=== PATIENT | male | born 1950 | race Caucasian/White ===

== ENCOUNTER 2021-11-27 13:04 | Inpatient (IN) ==
[2021-11-27 14:31] LABS: Basophils # (auto) 0.04 K/uL (0-0.2); Basophils % (auto) 0.4 %; Eosinophils # (auto) 0.28 K/uL (0-0.5); Eosinophils % (auto) 2.9 %; Hematocrit (blood only) 42.6 % (42-52); Hemoglobin 14.5 g/dL (14.0-18.0); Immature Granulocytes # (auto) 0.02 K/uL (0.00-0.02); Immature Granulocytes % (auto) 0.2 %; Lymphocytes # (auto) 1.94 K/uL (1.2-3.4); Lymphocytes % (auto) 19.8 %; Mean Corpuscular Hemoglobin 28.2 pg (25-34); Mean Corpuscular Volume 82.7 fL (80-100); Monocytes # (auto) 0.45 K/uL (0.11-0.59); Monocytes % (auto) 4.6 %; Neutrophils # (auto) 7.07 K/uL (1.4-6.5); Neutrophils % (auto) 72.1 %; Platelet Count 215 K/uL (130-400); RDW Coefficient of Variation 12.8 % (11.5-14.5); RDW Standard Deviation 38.8 fL (36.4-46.3); Red Blood Count 5.15 M/uL (4.7-6.1)
[2021-11-27 14:56] LABS: Alanine Aminotransferase 10 U/L (7-52); Albumin Globulin Ratio 1.2 (0.9-2); Albumin Level 4.3 gm/dl (3.4-5.0); Alkaline Phosphatase 70 U/L (34-104); Anion Gap 8 (3-11); Aspartate Aminotransferase 14 U/L (13-39); BUN Creatinine Ratio 26.9 (10-20); Bilirubin,Total 0.7 mg/dl (0.2-1.0); Blood Urea Nitrogen 36 mg/dl (6-23); Calcium 9.2 mg/dl (8.5-10.1); Carbon Dioxide 25 mmol/L (21-32); Chloride 104 mmol/L (98-107); Est GFR (African American) 60.9 ml/min; Est GFR (Non-African American) 52.6 ml/min; Globulin 3.6 gm/dl (2.5-4.0); Glucose 285 mg/dl (70-99(Fasting)); Sodium 137 mmol/L (136-145); Total Protein 7.9 gm/dl (6.0-8.3)
[2021-11-27] MEDS ORDERED: SODIUM CHLORIDE 0.9% 1000ML 1,000 ML IV ONE (14:56)
[2021-11-27 14:59] LABS: Troponin I High Sensitivity 7.1 pg/ml (0-20)
--- NOTE | 2021-11-27 15:13 | XRay Report ---
XR chest 1V portable HISTORY: 71 years-old Male weakness acute weakness COMPARISON: None TECHNIQUE: Portable AP view of the chest FINDINGS: The cardiomediastinal and hilar silhouettes are within normal limits. Atherosclerosis of the thoracic aorta. No pneumothorax, pleural effusion, airspace consolidation or overt pulmonary edema. Degenerat sam changes of the shoulders and spine. IMPRESSION: No acute process. ACT 112: Negative or not required by law. The above report was generated using voice recognition software. It may contain grammatical, syntax o r spelling errors. Electronically signed by: Alexi Rock M.D. 11/27/2021 3:12 PM
[2021-11-27 15:51] LABS: Phosphorus 3.2 mg/dl (2.5-4.9)
[2021-11-27 16:24] LABS: Lyme Ab IgG w/WB Rflx Negative (Negative); Lyme Ab IgM w/WB Rflx Negative (Negative)
--- NOTE | 2021-11-27 16:30 | CT Scan Report ---
CT abd pelvis wo con CLINICAL HISTORY: back pain, BLE weakness TECHNIQUE: Helical axial images of the abdomen and pelvis were obtained. Automated dose lowering tech niques and/or adjustment according to patient size were utilized for this exam. This exam was perfor med without intravenous contrast. CT DOSE: 320.70 mGy.cm COMPARISON: Comparison is made to CT abdomen pelvis 02/19/2007 FINDINGS: Lower chest: No acute abnormality Liver: Unremarkable. No focal lesions are seen. Gallbladder and biliary tree: No calcified gallstones. Normal caliber wall. No intra- or extrahepatic biliary ductal dilation. Pancreas: Unremarkable, no focal lesions. Spleen: Unremarkable. Adrenals: Unremarkable. Kidneys and ureters: Perinephric stranding is noted bilaterally. Bladder: Unremarkable. Reproductive organs: Prostatomegaly is seen. Bowel: Unremarkable appearance of the bowel. The appendix is normal. A small hiatal hernia is seen. Lymph nodes Retroperitoneal: Unremarkable. Mesenteric: Subcentimeter lymph nodes are noted. Pelvic: Unremarkable. Peritoneum: Pearl mesentery is seen in the central abdomen, somewhat more prominent than in the prior exam. Vessels: Atherosclerotic calcifications are seen. Abdominal wall: Left fat containing inguinal hernia. Bones: Degenerative changes in the visualized spine. No evidence of acute fracture. IMPRESSION: No acute abnormalities to explain back pain and bilateral weakness. Slightly progressed Pearl mesente ry is noted, which is nonspecific but can be seen in mesenteric adenitis. ACT 112: Negative or not required by law. Electronically signed by: Tutu Cartwright M.D. 11/27/2021 4:28 PM
[2021-11-27] MEDS ORDERED: LABETALOL HCL IV 5 MG/ML 20ML IV STA (17:12)
[2021-11-27 17:17] LABS: Appearance Urine Clear (Clear); Bacteria Urine Automated Negative (Negative); Bilirubin Urine Negative (Negative); Blood Urine Trace (Negative); Color Urine Yellow; Epithelial Cell Urine Auto 0-5 /lpf (0-5); Glucose Urine UA 3+ (Negative); Ketones Urine Trace (Negative); Leukocyte Esterase Urine Negative (Negative); Nitrite Urine Negative (Negative); Protein Urine 1+ (Negative); RBC Urine Automated 0-4 /hpf (0-4); Urobilinogen Urine Negative (Negative)
--- NOTE | 2021-11-27 18:12 | History & Physical Report ---
Date of Service November 27, 2021 Assessment & Plan (1) Weakness: Plan: Generalized weakness that he reports predominantly in the LEs; however, strength is 5/5 on my exam in upper and lower extremities. No red flag symptoms (eg saddle anesthesia, urinary/bowel incontinence, good strength). Some loss of proprioception. TSH normal. Denies any alcohol use. - B12, folate, ESR, SPEP/UPEP for basic neuropathy work-up - A1c as below - PT/OT - If worsening, consider neuro evaluation (2) Diabetes: Plan: Random glucose was 285 on labs. Qualifies as newly diabetic. - A1c ordered - Sliding scale - DM educator consult placed (3) Hypertension: Plan: Home BP ran in the 180-190 range per his report before his cuff broke. In the ER, BP is consistently >200/110. No acute symptoms. - Start losartan 50 mg HS - Hydralazine PO PRN for SBP > 200 or DBP 110. - As per PMID: [id number], dropping MAP > 30% (in absence of acute end-organ damage) is associated with poorer outcomes, especially when using IV anti- hypertensives. So, our goal would be to maintain BP ~160/90 over next 1-2 days while improving overall control. (4) DVT prophylaxis: Plan: Lovenox 40 mg SQ daily History of Present Illness Primary Care Provider: NO PCP 71yo M w/ no major PMH who presents with generlized weakness and some loss of balance. The patient notes that he was in his normal state of health until about 1 week ago. He notes that he had been checking his blood pressure from time to time and noted it was consistently in the 180s range. About 1 week ago, he was mowing his lawn, when he felt a sensation of overall weakness. He notes that he may have also lost his balance some at the time. He reports some slight nausea. He denies any vision changes then, and he denies any pre-syncope sensation. He went inside, drank some water, and felt largely better. He notes this sensation has occurred several times over the last week. Mostly, he will feel generalized weakness in his legs, but he notes sometimes weakness in the upper extremities as well. Other than with exertion, he has no exacerbating or alleviating factors. He denies any changes in weight. No night sweats, no chest pain, no abdominal pain, no vomiting. He has not seen a PCP in 20 years, he believes. Allergies Allergy/AdvReac Type Severity Reaction Status Date / Time No Known Allergies Allergy Mild Verified 11/27/21 17:55 Home Medications Medication Instructions Recorded Confirmed Type acetaminophen-caffeine 500 mg-65 1 tab PO Q12H PRN 11/27/21 11/27/21 History mg tablet Past Med/Surg History Medical History (Updated 11/27/21 @ 18:06 by Evens Mitchell MD) Diabetes Hypertension Kidney stone Surgical History Hx of LASIK Family History (Updated 11/27/21 @ 18:05 by Evens Mitchell MD) Other No pertinent family history Social History Smoking Status: Never smoker Preferred Language: Chinese Feels Safe at Home: Yes Review of Systems Review of Systems: All systems reviewed & are unremarkable except as noted in HPI & below Physical Exam Constitutional: WD/WN, vitals as above Eyes: EOM intact bilaterally; no conjunctival abnormality ENMT: external ear and nose normal, oropharynx normal Neck: trachea midline, no thyromegaly normal visual inspection Respiratory: normal respiratory effort, lungs clear to auscultation no respiratory distress Cardiovascular: RRR, no murmur, no edema Gastrointestinal (Abdomen): Inspection/Auscultation: abdomen normal to inspection; abdomen not distended Musculoskeletal: no cyanosis or clubbing, extremities motor strength 5/5 Skin: no rashes, warm and dry Neurologic: moves all extremities and awake Psychiatric: Orientation: alert, oriented to person and cooperative Results & Data Results & Data ([facility]) Vital Signs (Past 12 Hours) Vital Signs Temp Pulse Pulse Resp BP BP Pulse Ox 11/27/21 17:07 95 H 18 240/111 H 98 11/27/21 16:26 90 18 195/118 H 98 11/27/21 13:09 36.5 C 91 H 18 208/99 H 98 Code Status & VTE Plan VTE Prophylaxis Plan VTE Prophylaxis will be ordered: Yes PG Care Time/CCT Total # of Minutes Spent Total Time Spent with Patient: Total time spent is greater than 50% in coordination of care (as documented) at patient's floor/unit and/or counseling patient: Coding Level of Care Code INT OBSERVATION CARE 70M LVL 3 Diagnoses Weakness R53.1 Diabetes E11.9 Hypertension I10 DVT prophylaxis Z29.9
--- NOTE | 2021-11-27 19:19 | Emergency Department Note ---
Impression & Plan Hypertensive urgency, Weakness, Hyperglycemia due to type 2 diabetes mellitus ED Provider Note NAME: MARIA L CASAREZ AGE: 71 SEX: M ARRIVES VIA: Walk-In INFORMANT: Patient ED PROVIDER(S): Austin Mora MD CHIEF COMPLAINT: Weakness PLAN: Disposition: Admit MEDICAL DECISION MAKING: The patient is a pleasant 71-year-old gentleman with a past medical history of hypertension, diabetes, history of basal cell carcinoma who presents to the emergency department for evaluation of 1 week of progressive generalized weakness with increased weakness in his legs where he reports he feels unsteady walking. He reports he has not contacted his doctor regarding his symptoms but felt symptoms more severe today and so a friend brought him to emergency department. He reports he was able to walk to the car in order to come to the emergency department today. He reports some intermittent mild lower back pain but nothing severe. He denies any urinary retention or loss of bowel control. He denies any known tick bites. He denies any fevers, chills, cough, congestion, GI or symptoms. On arrival the patient is fatigued appearing but no acute distress, afebrile with blood pressure elevated in 200s/100s. Vital signs otherwise stable. He appears clinically dry. He exhibits generalized weakness without focal weakness. He does appear to have bilateral lower extremity weakness though he is able to stand he does appear unsteady. Patellar reflexes are blunted. He has no clonus. WBC, H/H and platelets within normal limits. Chemistry without metabolic acidosis. BUN/creatinine> 20 consistent with patient's clinically dry appearance in setting of hyperglycemia of 280. LFTs are unremarkable. Electrolytes unremarkable. High-sensitivity troponin 7.1 within normal limits. CPK within normal limits. TSH within normal limits. UA is without overt evidence of infection. Note is made of 1+ protein 3+ glucose and trace ketones. Covid-19 RNA, NAAT negative. Lyme screen was negative. CT of the abdomen pelvis was performed and was negative for acute findings. Given the patient's generalized weakness with new ambulatory dysfunction in the setting of hypertensive urgency reasonable to proceed with admission. 10 mg of IV labetalol was administered. Case was discussed with Dr. Draper, [facility] hospitalist, who will evaluate the patient for admission. Triage Nursing notes reviewed and agree them. Prior medical records reviewed Vital Signs: reviewed and remarkable for hypertension Differential diagnosis: Infection, dehydration, metabolic abnormality, hypo/hyperglycemia, electrolyte disturbance, anemia, hypoxia, cardiac sources, intracerebral event, toxicologic, neurologic, as well as other pathologies. ER treatment provided: See below. Diagnostics interpreted by me: ECG: Normal sinus rhythm, 83 bpm, no ectopy, right bundle branch block, T wave abnormality, no overt ST elevation or depression, QTC 490, QRS 140 Cardiac Monitoring: An order for continuous cardiac monitoring was placed and demonstrated normal sinus rhythm, 83 bpm, no ectopy. Laboratory studies: See below Imaging studies: See below Consultation(s): Case was discussed with Dr. Draper, [facility] hospitalist, who will evaluate the patient for admission. HPI: The patient is a pleasant 71-year-old gentleman with a past medical history of hypertension, diabetes, history of basal cell carcinoma who presents to the emergency department for evaluation of 1 week of progressive generalized weakne ss with increased weakness in his legs where he reports he feels unsteady walking. He reports he has not contacted his doctor regarding his symptoms but felt symptoms more severe today and so a friend brought him to emergency department. He reports he was able to walk to the car in order to come to the emergency department today. He reports some intermittent mild lower back pain but nothing severe. He denies any urinary retention or loss of bowel control. He denies any known tick bites. He denies any fevers, chills, cough, congestion, GI or symptoms. ROS: See above HPI for pertinent positives & negatives. A total of 10 systems reviewed and were otherwise negative. VITALS:See Below PHYSICAL EXAMINATION: GENERAL: Awake, alert, fatigued-appearing, in no distress HENT: Normocephalic, atraumatic. Oropharynx with dry mucous membranes and otherwise unremarkable. EYES: Normal conjunctiva. Sclera non-icteric. NECK: Supple. No nuchal rigidity. FROM. No JVD. RESPIRATORY: Clear to auscultation. CARDIAC: Regular rate, normal rhythm. Extremities warm and well perfused. Pulses equal. ABDOMEN: Soft, non-distended. No tenderness to palpation. No rebound or guarding. No masses. RECTAL: Deferred. MUSCULOSKELETAL: Chest examination reveals no tenderness. The back is symmetrical on inspection without obvious abnormality. There is no CVA tenderness to palpation. No joint edema. LOWER EXTREMITIES: Calves are equal size bilaterally and non-tender. No edema. No discoloration. NEURO: No focal sensory or motor deficits noted. Generalized weakness with symmetric bilateral lower extremity weakness 4+/5. Reflexes are blunted bilaterally. There is no clonus. SKIN: No rash or jaundice noted. ED COURSE: Critical Care: I have personally spent greater than 35 minutes of critical care time in the direct management of this patient. This includes bedside care, interpretation of diagnostic studies, and testing, discussion with consultants, patient, and family members, and other required patient management activities. This 35 minutes is in excess of all separately billable procedures. Austin Mora MD Past Med/Surg History Medical History Diabetes Hypertension Kidney stone Surgical History Hx of LASIK Family History Other No pertinent family history Social History Smoking Status: Never smoker Preferred Language: Faroese Feels Safe at Home: Yes Allergies Allergies Allergy/AdvReac Type Severity Reaction Status Date / Time No Known Allergies Allergy Mild Verified 11/27/21 17:55 Home Meds Home Medications Medication Instructions Recorded Confirmed acetaminophen-caffeine 500 mg-65 1 tab PO Q12H PRN 11/27/21 11/27/21 mg tablet Results & Data (ED) Vital Signs Vital Signs - 24 hr 11/27/21 13:09 11/27/21 15:21 11/27/21 16:26 Temperature 36.5 C Temperature Source Oral Pulse Rate 91 H Pulse Rate [Apical] 90 Respiratory Rate 18 18 Respiratory Effort / Characteristics Non-Labored Non-Labored Spontaneous Respiratory Depth Normal Normal Respiratory Pattern Regular Regular Blood Pressure 208/99 H Blood Pressure [Right Arm] 195/118 H Blood Pressure Mean 135 Blood Pressure Mean [Right Arm] 143 Blood Pressure Position [Right Arm] Sitting Pulse Oximetry 98 98 Oxygen Delivery Method Room Air Room Air Room Air Sepsis Recent Fever Within 48 Hours No Sepsis New/Unexplained Change in Mental Status No Sepsis Action Taken by Nursing No Action Required 11/27/21 17:07 11/27/21 18:06 Temperature Temperature Source Pulse Rate Pulse Rate [Apical] 95 H 85 Respiratory Rate 18 18 Respiratory Effort / Characteristics Non-Labored Spontaneous Non-Labored Spontaneous Respiratory Depth Normal Normal Respiratory Pattern Regular Regular Blood Pressure Blood Pressure [Right Arm] 240/111 H 204/119 H Blood Pressure Mean Blood Pressure Mean [Right Arm] 154 147 Blood Pressure Position [Right Arm] Sitting Sitting Pulse Oximetry 98 95 Oxygen Delivery Method Room Air Room Air Sepsis Recent Fever Within 48 Hours Sepsis New/Unexplained Change in Mental Status Sepsis Action Taken by Nursing Laboratory Data Attestation: I reviewed the patient's lab results. Result diagrams: 11/27/21 14:15 11/27/21 14:15 Lab Results 11/27/21 11/27/21 11/27/21 Range/Units 14:15 14:15 14:15 WBC 9.80 (4.8-10.8) K/uL RBC 5.15 (4.7-6.1) M/uL Hgb 14.5 (14.0-18.0) g/dL Hct 42.6 (42-52) % MCV 82.7 (80-100) fL MCH 28.2 (25-34) pg MCHC 34.0 (32-36) g/dL RDW Std Deviation 38.8 (36.4-46.3) fL RDW Coeff of Cassandra 12.8 (11.5-14.5) % Plt Count 215 (130-400) K/uL MPV 10.0 (7.4-10.4) fL Immature Gran % (Auto) 0.2 % Neut % (Auto) 72.1 % Lymph % (Auto) 19.8 % [place] % (Auto) 4.6 % Eos % (Auto) 2.9 % Baso % (Auto) 0.4 % Neut # (Auto) 7.07 H (1.4-6.5) K/uL Lymph # (Auto) 1.94 (1.2-3.4) K/uL [place] # (Auto) 0.45 (0.11-0.59) K/uL Eos # (Auto) 0.28 (0-0.5) K/uL Baso # (Auto) 0.04 (0-0.2) K/uL Immature Gran # (Auto) 0.02 (0.00-0.02) K/uL Sodium 137 (136-145) mmol/L Potassium 4.0 (3.5-5.1) mmol/L Chloride 104 (98-107) mmol/L Carbon Dioxide 25 (21-32) mmol/L Anion Gap 8 (3-11) BUN 36 H (6-23) mg/dl Creatinine 1.34 (0.6-1.4) mg/dl Est Cr Clr Drug Dosing Not Reportable Est GFR ( Amer) 60.9 ml/min Est GFR (Non-Af Amer) 52.6 ml/min BUN/Creatinine Ratio 26.9 H (10-20) Glucose 285 H (70-99(Fasting)) mg/dl Calcium 9.2 (8.5-10.1) mg/dl Phosphorus (2.5-4.9) mg/dl Magnesium (1.7-2.4) mg/dl Total Bilirubin 0.7 (0.2-1.0) mg/dl AST 14 (13-39) U/L ALT 10 (7-52) U/L Alkaline Phosphatase 70 (34-104) U/L Total Creatine Kinase (30-223) U/L Troponin I High Sens 7.1 (0-20) pg/ml Total Protein 7.9 (6.0-8.3) gm/dl Albumin 4.3 (3.4-5.0) gm/dl Globulin 3.6 (2.5-4.0) gm/dl Albumin/Globulin Ratio 1.2 (0.9-2) TSH 1.719 (0.300-4.500) uIu/ml Urine Color Urine Appearance (Clear) Urine pH (4.5-7.5) Ur Specific [place] (1.000-1.030) Urine Protein (Negative) Urine Glucose (UA) (Negative) Urine Ketones (Negative) Urine Blood (Negative) Urine Nitrite (Negative) Urine Bilirubin (Negative) Urine Urobilinogen (Negative) Ur Leukocyte Esterase (Negative) Urine WBC (Auto) (0-5) /hpf Urine RBC (Auto) (0-4) /hpf U Hyaline Cast (Auto) (0-5) /lpf U Epithel Cells (Auto) (0-5) /lpf Urine Bacteria (Auto) (Negative) Lyme Disease IgG Ab (Negative) Lyme Disease IgM Ab (Negative) SARS-CoV-2, RNA, NAAT (NEGATIVE) 06/20/22 06/20/22 06/20/22 Range/Units 14:15 14:15 17:09 WBC (4.8-10.8) K/uL RBC (4.7-6.1) M/uL Hgb (14.0-18.0) g/dL Hct (42-52) % MCV (80-100) fL MCH (25-34) pg MCHC (32-36) g/dL RDW Std Deviation (36.4-46.3) fL RDW Coeff of Cassandra (11.5-14.5) % Plt Count (130-400) K/uL MPV (7.4-10.4) fL Immature Gran % (Auto) % Neut % (Auto) % Lymph % (Auto) % [place] % (Auto) % Eos % (Auto) % Baso % (Auto) % Neut # (Auto) (1.4-6.5) K/uL Lymph # (Auto) (1.2-3.4) K/uL [place] # (Auto) (0.11-0.59) K/uL Eos # (Auto) (0-0.5) K/uL Baso # (Auto) (0-0.2) K/uL Immature Gran # (Auto) (0.00-0.02) K/uL Sodium (136-145) mmol/L Potassium (3.5-5.1) mmol/L Chloride (98-107) mmol/L Carbon Dioxide (21-32) mmol/L Anion Gap (3-11) BUN (6-23) mg/dl Creatinine (0.6-1.4) mg/dl Est Cr Clr Drug Dosing Est GFR ( Amer) ml/min Est GFR (Non-Af Amer) ml/min BUN/Creatinine Ratio (10-20) Glucose (70-99(Fasting)) mg/dl Calcium (8.5-10.1) mg/dl Phosphorus 3.2 (2.5-4.9) mg/dl Magnesium 2.0 (1.7-2.4) mg/dl Total Bilirubin (0.2-1.0) mg/dl AST (13-39) U/L ALT (7-52) U/L Alkaline Phosphatase (34-104) U/L Total Creatine Kinase 95 (30-223) U/L Troponin I High Sens (0-20) pg/ml Total Protein (6.0-8.3) gm/dl Albumin (3.4-5.0) gm/dl Globulin (2.5-4.0) gm/dl Albumin/Globulin Ratio (0.9-2) TSH (0.300-4.500) uIu/ml Urine Color Yellow Urine Appearance Clear (Clear) Urine pH 5.0 (4.5-7.5) Ur Specific [place] 1.030 (1.000-1.030) Urine Protein 1+ H (Negative) Urine Glucose (UA) 3+ H (Negative) Urine Ketones Trace H (Negative) Urine Blood Trace H (Negative) Urine Nitrite Negative (Negative) Urine Bilirubin Negative (Negative) Urine Urobilinogen Negative (Negative) Ur Leukocyte Esterase Negative (Negative) Urine WBC (Auto) 1-5 (0-5) /hpf Urine RBC (Auto) 0-4 (0-4) /hpf U Hyaline Cast (Auto) 1-5 (0-5) /lpf U Epithel Cells (Auto) 0-5 (0-5) /lpf Urine Bacteria (Auto) Negative (Negative) Lyme Disease IgG Ab Negative (Negative) Lyme Disease IgM Ab Negative (Negative) SARS-CoV-2, RNA, NAAT (NEGATIVE) 11/27/21 Range/Units 18:48 WBC (4.8-10.8) K/uL RBC (4.7-6.1) M/uL Hgb (14.0-18.0) g/dL Hct (42-52) % MCV (80-100) fL MCH (25-34) pg MCHC (32-36) g/dL RDW Std Deviation (36.4-46.3) fL RDW Coeff of Cassandra (11.5-14.5) % Plt Count (130-400) K/uL MPV (7.4-10.4) fL Immature Gran % (Auto) % Neut % (Auto) % Lymph % (Auto) % [place] % (Auto) % Eos % (Auto) % Baso % (Auto) % Neut # (Auto) (1.4-6.5) K/uL Lymph # (Auto) (1.2-3.4) K/uL [place] # (Auto) (0.11-0.59) K/uL Eos # (Auto) (0-0.5) K/uL Baso # (Auto) (0-0.2) K/uL Immature Gran # (Auto) (0.00-0.02) K/uL Sodium (136-145) mmol/L Potassium (3.5-5.1) mmol/L Chloride (98-107) mmol/L Carbon Dioxide (21-32) mmol/L Anion Gap (3-11) BUN (6-23) mg/dl Creatinine (0.6-1.4) mg/dl Est Cr Clr Drug Dosing Est GFR ( Amer) ml/min Est GFR (Non-Af Amer) ml/min BUN/Creatinine Ratio (10-20) Glucose (70-99(Fasting)) mg/dl Calcium (8.5-10.1) mg/dl Phosphorus (2.5-4.9) mg/dl Magnesium (1.7-2.4) mg/dl Total Bilirubin (0.2-1.0) mg/dl AST (13-39) U/L ALT (7-52) U/L Alkaline Phosphatase (34-104) U/L Total Creatine Kinase (30-223) U/L Troponin I High Sens (0-20) pg/ml Total Protein (6.0-8.3) gm/dl Albumin (3.4-5.0) gm/dl Globulin (2.5-4.0) gm/dl Albumin/Globulin Ratio (0.9-2) TSH (0.300-4.500) uIu/ml Urine Color Urine Appearance (Clear) Urine pH (4.5-7.5) Ur Specific [place] (1.000-1.030) Urine Protein (Negative) Urine Glucose (UA) (Negative) Urine Ketones (Negative) Urine Blood (Negative) Urine Nitrite (Negative) Urine Bilirubin (Negative) Urine Urobilinogen (Negative) Ur Leukocyte Esterase (Negative) Urine WBC (Auto) (0-5) /hpf Urine RBC (Auto) (0-4) /hpf U Hyaline Cast (Auto) (0-5) /lpf U Epithel Cells (Auto) (0-5) /lpf Urine Bacteria (Auto) (Negative) Lyme Disease IgG Ab (Negative) Lyme Disease IgM Ab (Negative) SARS-CoV-2, RNA, NAAT NEGATIVE (NEGATIVE) Administered Medications Discontinued Medications Sodium Chloride (Nss 1000ml) 1,000 mls @ 999 mls/hr IV .Q1H1M ONE Stop: 11/27/21 15:56 Last Infusion: 11/27/21 16:25 Dose: 0 mls/hr Documented by: [id number] Admin: 11/27/21 15:20 Dose: 999 mls/hr Documented by: [id number] Labetalol HCl (Labetalol Hcl Iv 5 Mg/Ml 20ml) 10 mg IV NOW STA Stop: 11/27/21 17:13 Last Admin: 11/27/21 17:17 Dose: 10 mg Documented by: [id number] Cosigned by: [id number] Imaging Data Radiologist's Impression: Chest X-Ray 11/27/21 13:14 XR chest 1V portable HISTORY: 71 years-old Male weakness acute weakness COMPARISON: None TECHNIQUE: Portable AP view of the chest FINDINGS: The cardiomediastinal and hilar silhouettes are within normal limits. Atherosclerosis of the thoracic aorta. No pneumothorax, pleural effusion, airspace consolidation or overt pulmonary edema. Degenerative changes of the shoulders and spine. IMPRESSION: No acute process. ACT 112: Negative or not required by law. The above report was generated using voice recognition software. It may contain grammatical, syntax or spelling errors. Electronically signed by: Alexi Rock M.D. 11/27/2021 3:12 PM Abdomen/Pelvis CT 11/27/21 15:29 CT abd pelvis wo con CLINICAL HISTORY: back pain, BLE weakness TECHNIQUE: Helical axial images of the abdomen and pelvis were obtained. Automated dose lowering techniques and/or adjustment according to patient size were utilized for this exam. This exam was performed without intravenous contrast. CT DOSE: 320.70 mGy.cm COMPARISON: Comparison is made to CT abdomen pelvis 02/19/2007 FINDINGS: Lower chest: No acute abnormality Liver: Unremarkable. No focal lesions are seen. Gallbladder and biliary tree: No calcified gallstones. Normal caliber wall. No intra- or extrahepatic biliary ductal dilation. Pancreas: Unremarkable, no focal lesions. Spleen: Unremarkable. Adrenals: Unremarkable. Kidneys and ureters: Perinephric stranding is noted bilaterally. Bladder: Unremarkable. Reproductive organs: Prostatomegaly is seen. Bowel: Unremarkable appearance of the bowel. The appendix is normal. A small hiatal hernia is seen. Lymph nodes Retroperitoneal: Unremarkable. Mesenteric: Subcentimeter lymph nodes are noted. Pelvic: Unremarkable. Peritoneum: Pearl mesentery is seen in the central abdomen, somewhat more prominent than in the prior exam. Vessels: Atherosclerotic calcifications are seen. Abdominal wall: Left fat containing inguinal hernia. Bones: Degenerative changes in the visualized spine. No evidence of acute fracture. IMPRESSION: No acute abnormalities to explain back pain and bilateral weakness. Slightly progressed Pearl mesentery is noted, which is nonspecific but can be seen in mesenteric adenitis. ACT 112: Negative or not required by law. Electronically signed by: Tutu Cartwright M.D. 11/27/2021 4:28 PM Discharge Plan Visit Data Chief Complaint: Weakness Stated Complaint: FELT WEAK, LOST BALANCE ED Provider: Austin Mora Discharge Problem: Hypertensive urgency, Weakness, Hyperglycemia due to type 2 diabetes mellitus Forms Stand Alone Forms: [facility] Prescriptions Prescriptions: No Action Excedrin Aspirin Free 500-65 mg Tablet 1 tab PO Q12H PRN (Reason: Pain) RF: 0 Referrals Referrals: PCP,NO [Primary Care Provider] -
[2021-11-27] MEDS ORDERED: OPTIRAY 320 125ml IV ONE (22:46)
[2021-11-27] MEDS ORDERED: METOPROLOL TARTRATE 1 MG/ML VIAL IV STA (23:52)
[2021-11-28] MEDS ORDERED: GLUCOSE 10 TABS/TUBE PO PRN (01:49)
[2021-11-28] MEDS ORDERED: hydrALAZINE 10 MG TAB PO PRN (01:49)
[2021-11-28] MEDS ORDERED: GLUCOSE 40% GEL 15 GM TUBE PO PRN (01:49)
[2021-11-28] MEDS ORDERED: ACETAMINOPHEN 325 MG TAB PO PRN (01:49)
[2021-11-28] MEDS ORDERED: DEXTROSE 50% 50 ML SYRINGE IV PRN (01:49)
[2021-11-28] MEDS ORDERED: GLUCAGON FOR INJ 1 MG VIAL SQ PRN (01:49)
[2021-11-28] MEDS ORDERED: CARBOHYDRATES FOR HYPOGLYCEMIA PO PRN (01:49)
[2021-11-28] MEDS: SODIUM CHLORIDE 0.9% 1000ML 1,000 ML IV SCH ×2 (02:59→15:34)
[2021-11-28] MEDS: INSULIN ASPART PER UNIT SC SCH ×5 (03:00→20:02)
[2021-11-28] MEDS: LOSARTAN POTASSIUM 50 MG TAB PO SCH ×2 (03:08→20:03)
[2021-11-28 06:37] LABS: Hematocrit (blood only) 38.7 % (42-52); Mean Corpuscular Hemoglobin 27.4 pg (25-34); Mean Corpuscular Hgb Conc 33.6 g/dL (32-36); Mean Corpuscular Volume 81.6 fL (80-100); Mean Platelet Volume 9.8 fL (7.4-10.4); Platelet Count 223 K/uL (130-400); RDW Coefficient of Variation 13.1 % (11.5-14.5); RDW Standard Deviation 39.1 fL (36.4-46.3); Red Blood Count 4.74 M/uL (4.7-6.1); White Blood Count 8.51 K/uL (4.8-10.8)
[2021-11-28 06:53] LABS: Calcium 8.7 mg/dl (8.5-10.1); Creatinine Clr Calc Pharmacy 59.1 ml/min; Est GFR (African American) 74.8 ml/min; Est GFR (Non-African American) 64.6 ml/min; Potassium 3.9 mmol/L (3.5-5.1)
[2021-11-28 07:42] LABS: Estimated Average Glucose 237 mg/dl; Hemoglobin A1C 9.9 % (4.5-5.6)
--- NOTE | 2021-11-28 07:48 | CT Scan Report ---
CT angio head wo/w CLINICAL HISTORY: dizzy, elevated bp COMPARISON STUDY: No previous studies for comparison. CT DOSE: 1622.29 mGy.cm TECHNIQUE: CT Angio of the brain was performed.followed by image post processing with coronal, and s agittal MIP reformats. Contrast Volume: Optiray 320, 119 ml FINDINGS: Vascular findings: There is normal enhancement within the internal carotid arteries bilaterally. The re is normal enhancement noted within the anterior, middle and posterior cerebral arteries. There is mild atherosclerotic disease present with no evidence for significant stenosis. Nonvascular findings: There is mild cerebral cortical atrophy and decreased attenuation in the perive ntricular white matter representing remote small vessel disease. There is no evidence for an acute in farct or cerebral edema. IMPRESSION: 1. Mild atherosclerotic disease involving the cavernous portions of the bilateral carotid arteries an d intracranial portion of the bilateral vertebral arteries with no evidence for focal stenosis. 2. No acute intracerebral pathology. ACT 112: Negative or not required by law. Electronically signed by: Francesco Rincon M.D. 11/28/2021 7:47 AM
[2021-11-28] MEDS: METOPROLOL TARTRATE 1 MG/ML VIAL IV PRN ×2 (07:56→22:18)
--- NOTE | 2021-11-28 08:02 | Hospitalist Progress Note ---
Date of Service November 28, 2021 Assessment & Plan (1) Hypertensive urgency: Plan: 71yo Male PMH Lasix surgery no PCP 20 years presents with 1 week of weakness in lower extremities. (1) Weakness: Generalized weakness reported predominantly in LEs; strength is 5/5 on exam in UE/LE. No red flag symptoms (eg saddle anesthesia, urinary/bowel incontinence). Some loss of proprioception. - Given his degree of atherosclerosis, this may be due to a combination of his dehydration (2/2 DM2) and his vertebral artery stenosis - Neck CTA = multiple high grade stenosis noted on b/l vertebral artery - TSH normal. No smoking alcohol - Folate wnl, B12 boderline low although doubt contributory (will supplement PO) - ESR, SPEP/UPEP pending - PT/OT ordered (2) Diabetes: -A1c 9.9, newly diagnosed diabetic, patient made aware he is diabetic - Sliding scale - DM educator consult placed: 1.) Insulin adjustments, as needed, to help maintain BG values in a safe range. 2.) Once stable, add Metformin ER 500mg with dinner meal.D/c on Metformin ER 500mg BID. 3.) SMBG 1x/day- change time checking from day to day. PRESCRIPTIONS NEEDED: 1.) OneTouch Verio Test Strips to check 1x/day. .) OneTouch Delica Lancets 33 gauge to check 1x/day. (3) Hypertension: Home BP ran in the 180-190 range per his report before his cuff broke. In the ER, BP is consistently >200/110. No acute symptoms. - Start losartan 50 mg HS, Metoprolol Tartrate 25mg BID PO, hold for systolic<160 - Hydralazine PO PRN and Metoprolol PO PRN for SBP > 180 or DBP 100. - goal to maintain BP ~160/90 over next 1-2 days while improving overall control. (4) Atherosclerosis -ordered lipid panel -started on ASA 81mg daily -consider starting rosuvastatin 20mg daily FENa: card consistent Code Status: Full DVT PPX: Lovenox PT/OT: ordered Case Management: pending Dispo: med/tele, bus monitor discontinued Romina Ellis Do PGY 2, FCM (2) Hyperglycemia due to type 2 diabetes mellitus: (3) Diabetes: (4) Weakness: Admission and Anticipated Discharge Date Admission Date: November 27, 2021 Supervising Physician Co-Signing Physician Notes I personally examined the patient and verified all rosenthal points of history and exam, discussed case, and agree with decision making with Dr Ellis Mostly feeling very tired right nownotes that he did not sleep well, and is mostly exhausted but cannot rest. Discussed dietdoes drink juices and regular soda, eats ice cream nightly. Vitals noted, in general he is awake and alert but very fatigued appears physically and mentally quite exhausted but otherwise no distress. HEENT normocephalic atraumatic mucous membranes moist. Breathing unlabored no accessory muscle use good effort. Skin shows no rashes no pallor or icterus. Neuro without focal deficits. Weaknesssuspect dehydrationboth due to the weather, and hyperglycemic dehydration due to new diagnosis/uncontrolled type 2 diabetes with an A1c of 9.9. For now glucose control medically, trying to start to educate on the critical importance of lifestyle control in type 2 diabetespatient was too exha usted to really get into depth with this today, but gave a good overview. Bilateral vertebral stenosissecondary risk reduction, outpatient follow-up, otherwise as above Otherwise as above Subjective 71yo Male seen at bedside calm comfortable cooperative. States he has felt off for 1 week mowing lawn, felt sudden onset weakness in his legs thought it was heat induced drank water it went away, he then proceded to have multiple episodes of weakness during the next week. Patient states he was carrying a plate of food when his legs felt weak and folded under him, he ended up on the floor dropped his food did not hit his head. He has noticed his home blood pressure has been in the 180's systolic. Patient only on excedrin rarely for sleep. He has not had a PCP in 20 years, only surgery Lasik, no smoking alcohol illicit drugs, drinks 'more soda than I should'. Patient states he has some dizziness nausea constipation and feelings of thirst/dry mouth, has voided 3 times today no bowel movement yet, states he hasn't eaten in 3 days due to waiting in ED. Patient understands he has diabetes and will require diet modification and medication. Patient aware he is on medication to decrease his blood pressure. Review of Systems Review of Systems: Dizziness nausea constipation thirst Negative fever chills Negative headache Negative chest pain palpitations SOB Negative vomitting diarrhea Negative numbness tingling rash swelling Physical Exam Constitutional: WD/WN, vitals as above Eyes: PERRL, conjunctivae normal, anicteric sclerae ENMT: external ear and nose normal, oropharynx normal Mouth: + dry oral mucous membranes Neck: trachea midline, no thyromegaly Respiratory: normal respiratory effort, lungs clear to auscultation Cardiovascular: RRR, no murmur, no edema Chest (Breasts): Chest: normal inspection of chest Gastrointestinal (Abdomen): normal bowel sounds, soft, nontender, no hepatosplenomegaly Skin: no rashes, warm and dry Neurologic: CN's II-XI intact bilaterally and moves all extremities Coordination: + abnormal [id number] test; normal [id number] test and normal rapid alternating movements Results & Data Results & Data ([facility]) Vital Signs (Past 12 Hours) Vital Signs Temp Pulse Pulse Pulse Resp BP BP 11/28/21 07:31 36.7 C 81 20 11/28/21 07:19 72 11/28/21 03:08 36.7 C 79 18 208/105 H 11/28/21 01:55 36.8 C 82 18 11/28/21 01:54 76 11/28/21 01:46 36.8 C 82 18 11/28/21 01:18 77 17 11/28/21 00:32 79 17 11/28/21 00:02 86 211/106 H 11/27/21 22:31 86 16 11/27/21 20:30 88 18 BP Pulse Ox 11/28/21 07:31 187/93 H 97 11/28/21 07:19 11/28/21 03:08 97 11/28/21 01:55 209/119 H 98 11/28/21 01:54 11/28/21 01:46 209/119 H 98 11/28/21 01:18 199/109 H 97 11/28/21 00:32 197/110 H 97 11/28/21 00:02 11/27/21 22:31 197/104 H 96 11/27/21 20:30 215/112 H 98 Diagnostic Findings Laboratory Results WBC 8.51 K/uL (4.8-10.8) 11/28/21 05:42 RBC 4.74 M/uL (4.7-6.1) 11/28/21 05:42 Hgb 13.0 g/dL (14.0-18.0) L 11/28/21 05:42 Hct 38.7 % (42-52) L 11/28/21 05:42 MCV 81.6 fL (80-100) 11/28/21 05:42 MCH 27.4 pg (25-34) 11/28/21 05:42 MCHC 33.6 g/dL (32-36) 11/28/21 05:42 RDW Std Deviation 39.1 fL (36.4-46.3) 11/28/21 05:42 RDW Coeff of Cassandra 13.1 % (11.5-14.5) 11/28/21 05:42 Plt Count 223 K/uL (130-400) 11/28/21 05:42 MPV 9.8 fL (7.4-10.4) 11/28/21 05:42 Immature Gran % (Auto) 0.2 % 11/27/21 14:15 Neut % (Auto) 72.1 % 11/27/21 14:15 Lymph % (Auto) 19.8 % 11/27/21 14:15 [place] % (Auto) 4.6 % 11/27/21 14:15 Eos % (Auto) 2.9 % 11/27/21 14:15 Baso % (Auto) 0.4 % 11/27/21 14:15 Neut # (Auto) 7.07 K/uL (1.4-6.5) H 11/27/21 14:15 Lymph # (Auto) 1.94 K/uL (1.2-3.4) 11/27/21 14:15 [place] # (Auto) 0.45 K/uL (0.11-0.59) 11/27/21 14:15 Eos # (Auto) 0.28 K/uL (0-0.5) 11/27/21 14:15 Baso # (Auto) 0.04 K/uL (0-0.2) 11/27/21 14:15 Immature Gran # (Auto) 0.02 K/uL (0.00-0.02) 11/27/21 14:15 ESR 40 mm/hr (0-20) H 11/27/21 14:23 Sodium 137 mmol/L (136-145) 11/28/21 05:42 Potassium 3.9 mmol/L (3.5-5.1) 11/28/21 05:42 Chloride 105 mmol/L (98-107) 11/28/21 05:42 Carbon Dioxide 26 mmol/L (21-32) 11/28/21 05:42 Anion Gap 6 (3-11) 11/28/21 05:42 BUN 26 mg/dl (6-23) H 11/28/21 05:42 Creatinine 1.13 mg/dl (0.6-1.4) 11/28/21 05:42 Est Cr Clr Drug Dosing 59.1 ml/min 11/28/21 05:42 Est GFR ( Amer) 74.8 ml/min 11/28/21 05:42 Est GFR (Non-Af Amer) 64.6 ml/min 11/28/21 05:42 BUN/Creatinine Ratio 23.0 (10-20) H 11/28/21 05:42 Glucose 160 mg/dl (70-99(Fasting)) H 11/28/21 05:42 POC Glucose 173 mg/dl (70-99) H 11/28/21 07:55 Estimat Average Glucose 237 mg/dl 11/28/21 05:42 Hemoglobin A1c 9.9 % (4.5-5.6) H 11/28/21 05:42 Calcium 8.7 mg/dl (8.5-10.1) 11/28/21 05:42 Phosphorus 3.2 mg/dl (2.5-4.9) 11/27/21 14:15 Magnesium 2.0 mg/dl (1.7-2.4) 11/28/21 05:42 Total Bilirubin 0.7 mg/dl (0.2-1.0) 11/27/21 14:15 AST 14 U/L (13-39) 11/27/21 14:15 ALT 10 U/L (7-52) 11/27/21 14:15 Alkaline Phosphatase 70 U/L (34-104) 11/27/21 14:15 Total Creatine Kinase 95 U/L (30-223) 11/27/21 14:15 Troponin I High Sens 7.1 pg/ml (0-20) 11/27/21 14:15 Total Protein 7.9 gm/dl (6.0-8.3) 11/27/21 14:15 Albumin 4.3 gm/dl (3.4-5.0) 11/27/21 14:15 Globulin 3.6 gm/dl (2.5-4.0) 11/27/21 14:15 Albumin/Globulin Ratio 1.2 (0.9-2) 11/27/21 14:15 Vitamin B12 283 pg/ml (180-914) 11/28/21 05:42 Folate > 22.30 ng/ml (>5.38) 11/28/21 05:42 TSH 1.719 uIu/ml (0.300-4.500) 11/27/21 14:15 Urine Color Yellow 11/27/21 17:09 Urine Appearance Clear (Clear) 11/27/21 17:09 Urine pH 5.0 (4.5-7.5) 11/27/21 17:09 Ur Specific [place] 1.030 (1.000-1.030) 11/27/21 17:09 Urine Protein 1+ (Negative) H 11/27/21 17:09 Urine Glucose (UA) 3+ (Negative) H 11/27/21 17:09 Urine Ketones Trace (Negative) H 11/27/21 17:09 Urine Blood Trace (Negative) H 11/27/21 17:09 Urine Nitrite Negative (Negative) 11/27/21 17:09 Urine Bilirubin Negative (Negative) 11/27/21 17:09 Urine Urobilinogen Negative (Negative) 11/27/21 17:09 Ur Leukocyte Esterase Negative (Negative) 11/27/21 17:09 Urine WBC (Auto) 1-5 /hpf (0-5) 11/27/21 17:09 Urine RBC (Auto) 0-4 /hpf (0-4) 11/27/21 17:09 U Hyaline Cast (Auto) 1-5 /lpf (0-5) 11/27/21 17:09 U Epithel Cells (Auto) 0-5 /lpf (0-5) 11/27/21 17:09 Urine Bacteria (Auto) Negative (Negative) 11/27/21 17:09 Lyme Disease IgG Ab Negative (Negative) 11/27/21 14:15 Lyme Disease IgM Ab Negative (Negative) 11/27/21 14:15 SARS-CoV-2, RNA, NAAT NEGATIVE (NEGATIVE) 11/27/21 18:48 Impressions Chest X-Ray 11/27/21 13:14 XR chest 1V portable HISTORY: 71 years-old Male weakness acute weakness COMPARISON: None TECHNIQUE: Portable AP view of the chest FINDINGS: The cardiomediastinal and hilar silhouettes are within normal limits. Atherosclerosis of the thoracic aorta. No pneumothorax, pleural effusion, airspace consolidation or overt pulmonary edema. Degenerative changes of the shoulders and spine. IMPRESSION: No acute process. ACT 112: Negative or not required by law. The above report was generated using voice recognition software. It may contain grammatical, syntax or spelling errors. Electronically signed by: Alexi Rock M.D. 11/27/2021 3:12 PM Abdomen/Pelvis CT 11/27/21 15:29 CT abd pelvis wo con CLINICAL HISTORY: back pain, BLE weakness TECHNIQUE: Helical axial images of the abdomen and pelvis were obtained. Automated dose lowering techniques and/or adjustment according to patient size were utilized for this exam. This exam was performed without intravenous contrast. CT DOSE: 320.70 mGy.cm COMPARISON: Comparison is made to CT abdomen pelvis 02/19/2007 FINDINGS: Lower chest: No acute abnormality Liver: Unremarkable. No focal lesions are seen. Gallbladder and biliary tree: No calcified gallstones. Normal caliber wall. No intra- or extrahepatic biliary ductal dilation. Pancreas: Unremarkable, no focal lesions. Spleen: Unremarkable. Adrenals: Unremarkable. Kidneys and ureters: Perinephric stranding is noted bilaterally. Bladder: Unremarkable. Reproductive organs: Prostatomegaly is seen. Bowel: Unremarkable appearance of the bowel. The appendix is normal. A small hiatal hernia is seen. Lymph nodes Retroperitoneal: Unremarkable. Mesenteric: Subcentimeter lymph nodes are noted. Pelvic: Unremarkable. Peritoneum: Pearl mesentery is seen in the central abdomen, somewhat more prominent than in the prior exam. Vessels: Atherosclerotic calcifications are seen. Abdominal wall: Left fat containing inguinal hernia. Bones: Degenerative changes in the visualized spine. No evidence of acute fracture. IMPRESSION: No acute abnormalities to explain back pain and bilateral weakness. Slightly progressed Pearl mesentery is noted, which is nonspecific but can be seen in mesenteric adenitis. ACT 112: Negative or not required by law. Electronically signed by: Tutu Cartwright M.D. 11/27/2021 4:28 PM Head CTA 11/27/21 21:53 CT angio head wo/w CLINICAL HISTORY: dizzy, elevated bp COMPARISON STUDY: No previous studies for comparison. CT DOSE: 1622.29 mGy.cm TECHNIQUE: CT Angio of the brain was performed.followed by image post processing with coronal, and sagittal MIP reformats. Contrast Volume: Optiray 320, 119 ml FINDINGS: Vascular findings: There is normal enhancement within the internal carotid arteries bilaterally. There is normal enhancement noted within the anterior, middle and posterior cerebral arteries. There is mild atherosclerotic disease present with no evidence for significant stenosis. Nonvascular findings: There is mild cerebral cortical atrophy and decreased attenuation in the periventricular white matter representing remote small vessel disease. There is no evidence for an acute infarct or cerebral edema. IMPRESSION: 1. Mild atherosclerotic disease involving the cavernous portions of the bilateral carotid arteries and intracranial portion of the bilateral vertebral arteries with no evidence for focal stenosis. 2. No acute intracerebral pathology. ACT 112: Negative or not required by law. Electronically signed by: Francesco Rincon M.D. 11/28/2021 7:47 AM Neck CTA 11/27/21 21:53 CT angio neck with con CLINICAL HISTORY: 71 years-old Male with dizzy, elevated bp. Acute dizziness with hypertension COMPARISON STUDY: CTA of the head of same day TECHNIQUE: Following the IV administration of 119 mL of Optiray, CT angiogram of the neck was performed from the aortic arch to the skull base. Images are reviewed in the axial, sagittal, and coronal planes. 3-D MIPS images are created and assessed. IV contrast was administered without complication. All measurements were calculated based on NASCET criteria. A dose lowering technique was utilized adhering to the principles of ALARA. FINDINGS: Atherosclerotic plaque of the thoracic arch results in mild stenosis at the origin of the left subclavian artery. The innominate and imaged subclavian arteries are patent. Patent common carotid arteries. There is minimal atheromatous plaque of the carotid bulbs and proximal cervical segments of the internal carotid arteries without high-grade stenosis. There is approximately 50% stenosis involving the proximal petrous portion of the right internal ca rotid artery on image 311 of series 8 with mild stenosis involving the mid to distal petrous segment on image 325 of series 8. There is no high-grade stenosis within this distribution. Atherosclerotic plaque of the cavernous, clinoid and supraclinoid segments results in approximately 50% stenosis bilaterally. There is high-grade stenosis at the origin of the left vertebral artery secondary to atherosclerotic plaque. The left vertebral artery is dominant. Short segment area of high-grade stenosis involves the proximal V4 segment of the left vertebral artery on image 300. Multifocal stenoses involves the V2 segment of the right vertebral artery measuring up to 50% on image 187 of series 8 at the level of C4 secondary to atherosclerotic plaquing degenerative spurring. There is of high-grade stenosis are noted within the V3 and V4 segments of the right vertebral artery and vertebral basilar confluence. The lung apices are clear without pneumothorax. Unremarkable soft tissues. Degenerative changes of the cervical spine. Mild mucosal thickening of the paranasal sinuses. IMPRESSION: 1. 50% stenosis involves the proximal aspect of the petrous segment of the right internal carotid artery with atheromatous plaque versus age-indeterminate dissection involving the mid petrous segment resulting in less than 50% stenosis. 2. Multifocal high-grade stenoses of the vertebral arteries. Both of these findings were called to the nursing floor at time of dictation. ACT 112: Negative or not required by law. The above report was generated using voice recognition software. It may contain grammatical, syntax or spelling errors. Electronically signed by: Alexi Rock M.D. 11/28/2021 9:39 AM Medications Administered Current Inpatient Medications Acetaminophen (Acetaminophen 325 Mg Tab) 650 mg PO Q4H PRN PRN Reason: pain/fever Stop: 12/28/21 01:48 Dextrose (Dextrose 50% 50 Ml Syringe) 25 - 50 ml IV UD PRN; Protocol PRN Reason: Hypoglycemia Protocol Stop: 12/28/21 01:48 Enoxaparin Sodium (Enoxaparin Inj 40 Mg/0.4 Ml Syr) 40 mg SQ Q24H TIARRA Stop: 12/28/21 08:59 Last Admin: 11/28/21 08:05 Dose: 40 mg Documented by: Glucagon (Glucagon For Inj 1 Mg Vial) 1 mg SQ UD PRN; Protocol PRN Reason: Hypoglycemia Protocol Stop: 12/28/21 01:48 Glucose (Glucose 10 Tabs/Tube) 4 - 8 tabs PO UD PRN; Protocol PRN Reason: Hypoglycemia Protocol Stop: 12/28/21 01:48 Glucose (Glucose 40% Gel 15 Gm Tube) 15 - 30 gm PO UD PRN; Protocol PRN Reason: Hypoglycemia Protocol Stop: 12/28/21 01:48 Hydralazine HCl (Hydralazine 10 Mg Tab) 10 mg PO Q6H PRN PRN Reason: SBP > 200 or DBP > 110 Stop: 12/28/21 01:48 Sodium Chloride (Nss 1000ml) 1,000 mls @ 80 mls/hr IV .[id number] TIARRA Stop: 12/28/21 01:48 Last Admin: 11/28/21 02:59 Dose: 80 mls/hr Documented by: Insulin Aspart (Insulin Aspart Per Unit) 0 units SC ACHS TIARRA Stop: 12/28/21 01:48 Last Admin: 11/28/21 09:09 Dose: 1 units Documented by: Losartan Potassium (Losartan Potassium 50 Mg Tab) 50 mg PO HS [facility] Stop: 12/28/21 01:48 Last Admin: 11/28/21 03:08 Dose: 50 mg Documented by: Metoprolol Tartrate (Metoprolol Tartrate 1 Mg/Ml Vial) 5 mg IV Q4 PRN PRN Reason: Hypertension Stop: 12/28/21 00:00 Last Admin: 11/28/21 07:56 Dose: 5 mg Documented by: Miscellaneous (Carbohydrates For Hypoglycemia ) 15 - 30 gm PO UD PRN PRN Reason: Hypoglycemia Protocol Stop: 12/28/21 01:48 Ondansetron HCl (Ondansetron Inj 2 Mg/Ml 2 Ml Vial) 4 mg IV Q4H PRN PRN Reason: Nausea Stop: 12/28/21 01:48 Resident Activity Tracking Resident Involvement: Resident Care Provided Care Provided: Adult Hospital Medicine (1) Hyperglycemia due to type 2 diabetes mellitus Diabetes mellitus shelter insulin use: unspecified 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
[2021-11-28] MEDS: ENOXAPARIN INJ 40 MG/0.4 ML SYR SQ SCH (08:05)
--- NOTE | 2021-11-28 09:41 | CT Scan Report ---
CT angio neck with con CLINICAL HISTORY: 71 years-old Male with dizzy, elevated bp. Acute dizziness with hypertension COMPARISON STUDY: CTA of the head of same day TECHNIQUE: Following the IV administration of 119 mL of Optiray, CT angiogram of the neck was perform ed from the aortic arch to the skull base. Images are reviewed in the axial, sagittal, and coronal pl anes. 3-D MIPS images are created and assessed. IV contrast was administered without complication. Al l measurements were calculated based on NASCET criteria. A dose lowering technique was utilized adhe ring to the principles of ALARA. FINDINGS: Atherosclerotic plaque of the thoracic arch results in mild stenosis at the origin of the left subcla vian artery. The innominate and imaged subclavian arteries are patent. Patent common carotid arteries . There is minimal atheromatous plaque of the carotid bulbs and proximal cervical segments of the int ernal carotid arteries without high-grade stenosis. There is approximately 50% stenosis involving the proximal petrous portion of the right internal carotid artery on image 311 of series 8 with mild joe nosis involving the mid to distal petrous segment on image 325 of series 8. There is no high-grade st enosis within this distribution. Atherosclerotic plaque of the cavernous, clinoid and supraclinoid se gments results in approximately 50% stenosis bilaterally. There is high-grade stenosis at the origin of the left vertebral artery secondary to atherosclerotic plaque. The left vertebral artery is dominant. Short segment area of high-grade stenosis involves the proximal V4 segment of the left vertebral artery on image 300. Multifocal stenoses involves the V2 s egment of the right vertebral artery measuring up to 50% on image 187 of series 8 at the level of C4 secondary to atherosclerotic plaquing degenerative spurring. There is of high-grade stenosis are note d within the V3 and V4 segments of the right vertebral artery and vertebral basilar confluence. The lung apices are clear without pneumothorax. Unremarkable soft tissues. Degenerative changes of th e cervical spine. Mild mucosal thickening of the paranasal sinuses. IMPRESSION: 1. 50% stenosis involves the proximal aspect of the petrous segment of the right internal carotid art gab with atheromatous plaque versus age-indeterminate dissection involving the mid petrous segment re sulting in less than 50% stenosis. 2. Multifocal high-grade stenoses of the vertebral arteries. Both of these findings were called to the nursing floor at time of dictation. ACT 112: Negative or not required by law. The above report was generated using voice recognition software. It may contain grammatical, syntax o r spelling errors. Electronically signed by: Alexi Rock M.D. 11/28/2021 9:39 AM
--- NOTE | 2021-11-28 13:17 | Electrocardiogram Report ---
Test Reason : Blood Pressure : / mmHG Vent. Rate : 083 BPM Atrial Rate : 083 BPM P-R Int : 156 ms QRS Dur : 140 ms QT Int : 424 ms P-R-T Axes : 039 005 026 degrees QTc Int : 498 ms Normal sinus rhythm Right bundle branch block T wave abnormality, consider lateral ischemia Abnormal ECG No previous ECGs available Confirmed by Jaydon Woody ([id number]) on 11/28/2021 1:17:15 PM Referred By: REFERRED SELF Confirmed By:Jaydon Woody
[2021-11-28 16:24] LABS: Chol HDL Ratio 4.9 (0-5)
[2021-11-28] MEDS ORDERED: POLYETHYLENE (MIRALAX) 17 GM PACK PO PRN (16:36)
--- NOTE | 2021-11-28 17:55 | Billing Data ---
Date of Service November 28, 2021 Coding Level of Care Code 06955 Subseq Obs Care Lvl 3
[2021-11-28] MEDS: METOPROLOL TARTRATE 25 MG TAB PO SCH (20:03)
[2021-11-28] MEDS: MELATONIN 3 MG TAB PO SCH (20:03)
[2021-11-29] MEDS: ONDANSETRON INJ 2 MG/ML 2 ML VIAL IV PRN ×2 (00:46→07:18)
[2021-11-29] MEDS: METOPROLOL TARTRATE 1 MG/ML VIAL IV PRN ×2 (04:35→15:14)
[2021-11-29 06:54] LABS: Hematocrit (blood only) 36.8 % (42-52); Hemoglobin 12.3 g/dL (14.0-18.0); Mean Corpuscular Hemoglobin 27.4 pg (25-34); Mean Corpuscular Hgb Conc 33.4 g/dL (32-36); Mean Platelet Volume 9.7 fL (7.4-10.4); Platelet Count 212 K/uL (130-400); RDW Coefficient of Variation 13.3 % (11.5-14.5); RDW Standard Deviation 39.7 fL (36.4-46.3); Red Blood Count 4.49 M/uL (4.7-6.1); White Blood Count 8.19 K/uL (4.8-10.8)
[2021-11-29 07:15] LABS: BUN Creatinine Ratio 19.1 (10-20); Calcium 8.2 mg/dl (8.5-10.1); Creatinine Clr Calc Pharmacy 58.1 ml/min; Est GFR (African American) 73.3 ml/min; Est GFR (Non-African American) 63.2 ml/min; Potassium 4.1 mmol/L (3.5-5.1)
--- NOTE | 2021-11-29 07:29 | Magnetic Resonance Report ---
MR brain wo con HISTORY: 71 years-old Male cerebellar symptoms b/l vertebral artery stenosis acute strokelike sympto ms COMPARISON: CTA head and neck 11/27/2021 TECHNIQUE: Multiplanar multisequence MRI of the brain was obtained without the use of IV contrast. FINDINGS: The crop scout localizer images demonstrate no gross extracranial abnormality. There is a linear 0.5 cm fo cus of restricted diffusion within the left [place] radiata/posterior aspect of the left external caps ule distribution which demonstrates decreased signal on the ADC map and increased T2/FLAIR signal. Ad ditionally, there is an 8 mm focus of slightly increased diffusion-weighted signal with intermediate to decreased signal on ADC map, image 6 of series 4 within the left cerebellar hemisphere. This focus also demonstrates increased T2/FLAIR signal. Scattered chronic lacunar infarcts of the cerebellum, b angy ganglia, left thalamus and roderick. Age-related involutional changes. Mild to moderate T2/FLAIR hyp erintense foci are noted throughout the white matter. No acute intracranial hemorrhage, midline shift, abnormal extra-axial collection, hydrocephalus or in tracranial mass. The cerebral venous sinuses and major arterial flow voids appear patent. The mastoid air cells are clear. There is a 1.9 cm focus of polypoid mucosal thickening involving the right post erior nasal aperture. Mild mucosal thickening of the ethmoid air cells. The skull, orbits and soft ti ssues are unremarkable. IMPRESSION: 1. 2.5 cm linear focus of restricted diffusion involving the left de [place]ant[place] radiata/external capsule dis tribution is compatible with an acute infarct. 2. Subcentimeter focus of restricted diffusion involving the left cerebellar hemisphere is suggestive of an acute versus subacute infarct. 3. Chronic lacunar infarcts of the cerebellum, brainstem and basal ganglia. 4. Involutional changes with chronic microvascular ischemic disease. ACT 112: Negative or not required by law. The above report was generated using voice recognition software. It may contain grammatical, syntax o r spelling errors. Electronically signed by: Alexi Rock M.D. 11/29/2021 7:27 AM
--- NOTE | 2021-11-29 08:01 | Hospitalist Progress Note ---
Date of Service November 29, 2021 Assessment & Plan (1) Hypertensive urgency: Plan: 71yo Male PMH Lasix surgery no PCP 20 years presents with 1 week of weakness in lower extremities. (1) Acute ischemic stroke with Weakness: - Neck CTA = multiple high grade stenosis noted on b/l vertebral artery - Brain MRI w/o contrast = 1. 2.5 cm linear focus of restricted diffusion involving the left de los santos radiata/external capsule distribution is compatible with an acute infarct. 2. Subcentimeter focus of restricted diffusion involving the left cerebellar hemisphere is suggestive of an acute versus subacute infarct. 3. Chronic lacunar infarcts of the cerebellum, brainstem and basal ganglia. Involutional changes with chronic microvascular ischemic disease. - TSH normal. No smoking alcohol - Folate B12 wnl -mildly elevated ESR 40 - SPEP/UPEP pending - PT/OT ordered, recommend inpatient rehab - speech therapy ordered - started aspirin 81mg daily - started rosuvastatin 40mg daily - patient understands he needs better control of HTN DM to prevent stroke recurrence (2) Diabetes: - A1c 9.9, newly diagnosed diabetic, patient made aware he is diabetic - Sliding scale - glucose well controlled in hospital with minimal insulin on carb consistent d iet, patient may greatly improve glycemic control and diet change - DM educator consult placed: 1.) Insulin adjustments, as needed, to help maintain BG values in a safe range. 2.) D/c on Metformin ER 500mg BID. PRESCRIPTIONS NEEDED: 1.) OneTouch Verio Test Strips to check 1x/day. .) OneTouch Delica Lancets 33 gauge to check 1x/day. (3) Hypertension: - Home BP 180-190 range. In the ER, BP consistently >200/110 - Start losartan 50 mg HS, Metoprolol Tartrate 25mg BID PO, hold for systolic<160 - started Amlodipine 2.5mg daily - Metoprolol IV 5mg PRN for SBP > 180 or DBP 100. - goal to maintain BP systolic 160-180 while in hospital (4) Atherosclerosis with HLD -Total cholesterol 220 -started rosuvastatin 40mg daily -started on ASA 81mg daily FENa: card consistent Code Status: Full DVT PPX: Lovenox PT/OT: 24hr support or rehab. Speech therapy ordered Case Management: pending Dispo: med/tele, cardiac sonographer discontinued Romina Ellis Do PGY 2, FCM (2) Hyperglycemia due to type 2 diabetes mellitus: (3) Diabetes: (4) Weakness: Admission and Anticipated Discharge Date Admission Date: November 27, 2021 Supervising Physician Co-Signing Physician Notes I personally examined the patient and verified all rosenthal points of history and exam, discussed case, and agree with decision making with Dr Ellis Some nausea. Ongoing fatigue. Vitals noted, awake and alert pleasant no distress but very fatigued. HEENT normocephalic atraumatic mucous membranes moist. Breathing unlabored no accessory muscle use good effort. Skin shows no rashes no pallor or icterus. Neuro shows cranial nerves II through XII be grossly intact, a bit of discoordination with his arms but strength seems to be 4+ out of 5 bilaterally, leg weakness probably 3+ out of 5 hip flexors on the right a little bit weak extension on the foot. Otherwise 5 out of 5 Strokehas multiple strokes actually. Right-sided weakness appears to be related to the anterior circulation stroke. Given that he does not have sign ificant carotid artery disease on that side, and thus far has not shown evidence of a central/cardioembolic source, strongly suspect atherosclerotic (from hypertension diabetes hyperlipidemia and age); weakness/dizziness also likely relates to cerebellar strokesof which it could easily be atherosclerotic, but also does have the prospect of atheroembolic from large vessel given his vertebral artery stenosis. Again risk factor reduction secondary risk reduction, PT/OT, supportive care, time. Managing blood pressure cautiously to allow for autoregulation. Sugars have actually been very easy to controldiscussed with patient that this has heavy implications that lifestyle will predominantly be what is needed to control his sugars at home. PT/OT eval and treat, anticipate benefit from rehabasking case management to set referrals in that direction. New onset type 2 diabetesongoing education, acutely insulin management, chronically likely lifestyle predominantly metformin acutely after discharge Uncontrolled hypertensioncareful management given that a lot of the uncontrolled may be autoregulation Hyperlipidemiahigh intensity statin Weaknesssuspect dehydrationin addition to stroke Bilateral vertebral stenosissecondary risk reduction, outpatient follow-up with vascular otherwise as above Otherwise as above Subjective Patient seen at bedside cooperative calm. He describes worsening right arm weakness difficult to coordinate feeding with spoon, worsening right leg weakness with increased numbness, worsening speech with difficulty word finding. He describes ongoing dizziness at rest without movement and ongoing nausea releived with zofran. States he was able to eat breakfast this morning despite nausea. Patient understands he had a stroke, along with diabetes and hypertension, states this is a lot of information and is open to more education. His biggest concern is regaining mobility, states he lives alone estranged from sister has not kept contact with his brother or friend, he is close with his neighbors. Review of Systems Review of Systems: Dizziness nausea Negative fever chills Negative headache Negative chest pain palpitations SOB Negative vomitting diarrhea Negative numbness tingling rash swelling Physical Exam Constitutional: WD/WN, vitals as above Eyes: PERRL, conjunctivae normal, anicteric sclerae ENMT: external ear and nose normal, oropharynx normal Mouth: + dry oral mucous membranes Neck: trachea midline, no thyromegaly Respiratory: normal respiratory effort, lungs clear to auscultation Cardiovascular: RRR, no murmur, no edema Chest (Breasts): Chest: normal inspection of chest Gastrointestinal (Abdomen): normal bowel sounds, soft, nontender, no hepatosplenomegaly Musculoskeletal: 5/5 muscle strength in LUE and LLE 4/5 muscle strength in RUE, some delay in following instructions 3/5 muscle strength in RLE unable to flex at hip against gravity difficulty dorsiflexion and plantarflexion against gravity sensation intact throughout Skin: no rashes, warm and dry Neurologic: CN's II-XI intact bilaterally and moves all extremities Coordination: + abnormal [id number]-hh-[id number] test; normal hqrj-xd-[id number] test and normal rapid alternating movements Results & Data Results & Data ([facility]) Vital Signs (Past 12 Hours) Vital Signs Temp Pulse Pulse Resp BP BP BP 11/29/21 07:45 78 11/29/21 07:16 37.0 C 75 18 187/90 H 11/29/21 04:35 73 193/99 H 11/29/21 04:09 36.6 C 73 18 193/99 H 11/29/21 01:41 80 187/88 H 11/29/21 00:31 36.8 C 78 16 196/102 H 11/28/21 23:23 69 176/94 H 11/28/21 22:53 73 199/106 H 11/28/21 22:38 36.8 C 76 18 221/106 H 11/28/21 22:20 78 11/28/21 22:18 77 221/106 H Pulse Ox 11/29/21 07:45 11/29/21 07:16 97 11/29/21 04:35 11/29/21 04:09 97 11/29/21 01:41 94 11/29/21 00:31 96 11/28/21 23:23 11/28/21 22:53 96 11/28/21 22:38 98 11/28/21 22:20 11/28/21 22:18 Diagnostic Findings Laboratory Results WBC 8.19 K/uL (4.8-10.8) 11/29/21 06:09 RBC 4.49 M/uL (4.7-6.1) L 11/29/21 06:09 Hgb 12.3 g/dL (14.0-18.0) L 11/29/21 06:09 Hct 36.8 % (42-52) L 11/29/21 06:09 MCV 82.0 fL (80-100) 11/29/21 06:09 MCH 27.4 pg (25-34) 11/29/21 06:09 MCHC 33.4 g/dL (32-36) 11/29/21 06:09 RDW Std Deviation 39.7 fL (36.4-46.3) 11/29/21 06:09 RDW Coeff of Cassandra 13.3 % (11.5-14.5) 11/29/21 06:09 Plt Count 212 K/uL (130-400) 11/29/21 06:09 MPV 9.7 fL (7.4-10.4) 11/29/21 06:09 Immature Gran % (Auto) 0.2 % 11/27/21 14:15 Neut % (Auto) 72.1 % 11/27/21 14:15 Lymph % (Auto) 19.8 % 11/27/21 14:15 [place] % (Auto) 4.6 % 11/27/21 14:15 Eos % (Auto) 2.9 % 11/27/21 14:15 Baso % (Auto) 0.4 % 11/27/21 14:15 Neut # (Auto) 7.07 K/uL (1.4-6.5) H 11/27/21 14:15 Lymph # (Auto) 1.94 K/uL (1.2-3.4) 11/27/21 14:15 [place] # (Auto) 0.45 K/uL (0.11-0.59) 11/27/21 14:15 Eos # (Auto) 0.28 K/uL (0-0.5) 11/27/21 14:15 Baso # (Auto) 0.04 K/uL (0-0.2) 11/27/21 14:15 Immature Gran # (Auto) 0.02 K/uL (0.00-0.02) 11/27/21 14:15 ESR 40 mm/hr (0-20) H 11/27/21 14:23 Sodium 137 mmol/L (136-145) 11/29/21 06:09 Potassium 4.1 mmol/L (3.5-5.1) 11/29/21 06:09 Chloride 106 mmol/L (98-107) 11/29/21 06:09 Carbon Dioxide 25 mmol/L (21-32) 11/29/21 06:09 Anion Gap 6 (3-11) 11/29/21 06:09 BUN 22 mg/dl (6-23) 11/29/21 06:09 Creatinine 1.15 mg/dl (0.6-1.4) 11/29/21 06:09 Est Cr Clr Drug Dosing 58.1 ml/min 11/29/21 06:09 Est GFR ( Amer) 73.3 ml/min 11/29/21 06:09 Est GFR (Non-Af Amer) 63.2 ml/min 11/29/21 06:09 BUN/Creatinine Ratio 19.1 (10-20) 11/29/21 06:09 Glucose 145 mg/dl (70-99(Fasting)) H 11/29/21 06:09 POC Glucose 167 mg/dl (70-99) H 11/29/21 07:22 Estimat Average Glucose 237 mg/dl 11/28/21 05:42 Hemoglobin A1c 9.9 % (4.5-5.6) H 11/28/21 05:42 Calcium 8.2 mg/dl (8.5-10.1) L 11/29/21 06:09 Phosphorus 3.2 mg/dl (2.5-4.9) 11/27/21 14:15 Magnesium 2.0 mg/dl (1.7-2.4) 11/28/21 05:42 Total Bilirubin 0.7 mg/dl (0.2-1.0) 11/27/21 14:15 AST 14 U/L (13-39) 11/27/21 14:15 ALT 10 U/L (7-52) 11/27/21 14:15 Alkaline Phosphatase 70 U/L (34-104) 11/27/21 14:15 Total Creatine Kinase 95 U/L (30-223) 11/27/21 14:15 Troponin I High Sens 7.1 pg/ml (0-20) 11/27/21 14:15 Total Protein 7.9 gm/dl (6.0-8.3) 11/27/21 14:15 Albumin 4.3 gm/dl (3.4-5.0) 11/27/21 14:15 Globulin 3.6 gm/dl (2.5-4.0) 11/27/21 14:15 Albumin/Globulin Ratio 1.2 (0.9-2) 11/27/21 14:15 Triglycerides 95 mg/dl (0-150) 11/28/21 05:42 Cholesterol 220 mg/dl (0-200) H 11/28/21 05:42 LDL Cholesterol, Calc 156 mg/dl 11/28/21 05:42 VLDL Cholesterol, Calc 19 mg/dl (0-30) 11/28/21 05:42 HDL Cholesterol 45 mg/dl 11/28/21 05:42 Cholesterol/HDL Ratio 4.9 (0-5) 11/28/21 05:42 Vitamin B12 283 pg/ml (180-914) 11/28/21 05:42 Folate > 22.30 ng/ml (>5.38) 11/28/21 05:42 TSH 1.719 uIu/ml (0.300-4.500) 11/27/21 14:15 Urine Color Yellow 11/27/21 17:09 Urine Appearance Clear (Clear) 11/27/21 17:09 Urine pH 5.0 (4.5-7.5) 11/27/21 17:09 Ur Specific [place] 1.030 (1.000-1.030) 11/27/21 17:09 Urine Protein 1+ (Negative) H 11/27/21 17:09 Urine Glucose (UA) 3+ (Negative) H 11/27/21 17:09 Urine Ketones Trace (Negative) H 11/27/21 17:09 Urine Blood Trace (Negative) H 11/27/21 17:09 Urine Nitrite Negative (Negative) 11/27/21 17:09 Urine Bilirubin Negative (Negative) 11/27/21 17:09 Urine Urobilinogen Negative (Negative) 11/27/21 17:09 Ur Leukocyte Esterase Negative (Negative) 11/27/21 17:09 Urine WBC (Auto) 1-5 /hpf (0-5) 11/27/21 17:09 Urine RBC (Auto) 0-4 /hpf (0-4) 11/27/21 17:09 U Hyaline Cast (Auto) 1-5 /lpf (0-5) 11/27/21 17:09 U Epithel Cells (Auto) 0-5 /lpf (0-5) 11/27/21 17:09 Urine Bacteria (Auto) Negative (Negative) 11/27/21 17:09 Lyme Disease IgG Ab Negative (Negative) 11/27/21 14:15 Lyme Disease IgM Ab Negative (Negative) 11/27/21 14:15 SARS-CoV-2, RNA, NAAT NEGATIVE (NEGATIVE) 11/27/21 18:48 Impressions Chest X-Ray 11/27/21 13:14 XR chest 1V portable HISTORY: 71 years-old Male weakness acute weakness COMPARISON: None TECHNIQUE: Portable AP view of the chest FINDINGS: The cardiomediastinal and hilar silhouettes are within normal limits. Atherosclerosis of the thoracic aorta. No pneumothorax, pleural effusion, airspace consolidation or overt pulmonary edema. Degenerative changes of the shoulders and spine. IMPRESSION: No acute process. ACT 112: Negative or not required by law. The above report was generated using voice recognition software. It may contain grammatical, syntax or spelling errors. Electronically signed by: Alexi Rock M.D. 11/27/2021 3:12 PM Abdomen/Pelvis CT 11/27/21 15:29 CT abd pelvis wo con CLINICAL HISTORY: back pain, BLE weakness TECHNIQUE: Helical axial images of the abdomen and pelvis were obtained. Automated dose lowering techniques and/or adjustment according to patient size were utilized for this exam. This exam was performed without intravenous contrast. CT DOSE: 320.70 mGy.cm COMPARISON: Comparison is made to CT abdomen pelvis 02/19/2007 FINDINGS: Lower chest: No acute abnormality Liver: Unremarkable. No focal lesions are seen. Gallbladder and biliary tree: No calcified gallstones. Normal caliber wall. No intra- or extrahepatic biliary ductal dilation. Pancreas: Unremarkable, no focal lesions. Spleen: Unremarkable. Adrenals: Unremarkable. Kidneys and ureters: Perinephric stranding is noted bilaterally. Bladder: Unremarkable. Reproductive organs: Prostatomegaly is seen. Bowel: Unremarkable appearance of the bowel. The appendix is normal. A small hiatal hernia is seen. Lymph nodes Retroperitoneal: Unremarkable. Mesenteric: Subcentimeter lymph nodes are noted. Pelvic: Unremarkable. Peritoneum: Pearl mesentery is seen in the central abdomen, somewhat more prominent than in the prior exam. Vessels: Atherosclerotic calcifications are seen. Abdominal wall: Left fat containing inguinal hernia. Bones: Degenerative changes in the visualized spine. No evidence of acute fracture. IMPRESSION: No acute abnormalities to explain back pain and bilateral weakness. Slightly progressed Pearl mesentery is noted, which is nonspecific but can be seen in mesenteric adenitis. ACT 112: Negative or not required by law. Electronically signed by: Tutu Cartwright M.D. 11/27/2021 4:28 PM Head CTA 11/27/21 21:53 CT angio head wo/w CLINICAL HISTORY: dizzy, elevated bp COMPARISON STUDY: No previous studies for comparison. CT DOSE: 1622.29 mGy.cm TECHNIQUE: CT Angio of the brain was performed.followed by image post processing with coronal, and sagittal MIP reformats. Contrast Volume: Optiray 320, 119 ml FINDINGS: Vascular findings: There is normal enhancement within the internal carotid arteries bilaterally. There is normal enhancement noted within the anterior, middle and posterior cerebral arteries. There is mild atherosclerotic disease present with no evidence for significant stenosis. Nonvascular findings: There is mild cerebral cortical atrophy and decreased attenuation in the periventricular white matter representing remote small vessel disease. There is no evidence for an acute infarct or cerebral edema. IMPRESSION: 1. Mild atherosclerotic disease involving the cavernous portions of the bilateral carotid arteries and intracranial portion of the bilateral vertebral arteries with no evidence for focal stenosis. 2. No acute intracerebral pathology. ACT 112: Negative or not required by law. Electronically signed by: Francesco Rincon M.D. 11/28/2021 7:47 AM Neck CTA 11/27/21 21:53 CT angio neck with con CLINICAL HISTORY: 71 years-old Male with dizzy, elevated bp. Acute dizziness with hypertension COMPARISON STUDY: CTA of the head of same day TECHNIQUE: Following the IV administration of 119 mL of Optiray, CT angiogram of the neck was performed from the aortic arch to the skull base. Images are reviewed in the axial, sagittal, and coronal planes. 3-D MIPS images are created and assessed. IV contrast was administered without complication. All measurements were calculated based on NASCET criteria. A dose lowering technique was utilized adhering to the principles of ALARA. FINDINGS: Atherosclerotic plaque of the thoracic arch results in mild stenosis at the origin of the left subclavian artery. The innominate and imaged subclavian arteries are patent. Patent common carotid arteries. There is minimal atheromatous plaque of the carotid bulbs and proximal cervical segments of the internal carotid arteries without high-grade stenosis. There is approximately 50% stenosis involving the proximal petrous portion of the right internal carotid artery on image 311 of series 8 with mild stenosis involving the mid to distal petrous segment on image 325 of series 8. There is no high-grade stenosis within this distribution. Atherosclerotic plaque of the cavernous, clinoid and supraclinoid segments results in approximately 50% stenosis bilaterally. There is high-grade stenosis at the origin of the left vertebral artery secondary to atherosclerotic plaque. The left vertebral artery is dominant. Short segment area of high-grade stenosis involves the proximal V4 segment of the left vertebral artery on image 300. Multifocal stenoses involves the V2 segment of the right vertebral artery measuring up to 50% on image 187 of series 8 at the level of C4 secondary to atherosclerotic plaquing degenerative spurring. There is of high-grade stenosis are noted within the V3 and V4 segments of the right vertebral artery and vertebral basilar confluence. The lung apices are clear without pneumothorax. Unremarkable soft tissues. Degenerative changes of the cervical spine. Mild mucosal thickening of the paranasal sinuses. IMPRESSION: 1. 50% stenosis involves the proximal aspect of the petrous segment of the right internal carotid artery with atheromatous plaque versus age-indeterminate dissection involving the mid petrous segment resulting in less than 50% stenosis. 2. Multifocal high-grade stenoses of the vertebral arteries. Both of these findings were called to the nursing floor at time of dictation. ACT 112: Negative or not required by law. The above report was generated using voice recognition software. It may contain grammatical, syntax or spelling errors. Electronically signed by: Alexi Rock M.D. 11/28/2021 9:39 AM Brain MRI 11/29/21 00:41 MR brain wo con HISTORY: 71 years-old Male cerebellar symptoms b/l vertebral artery stenosis acute strokelike symptoms COMPARISON: CTA head and neck 11/27/2021 TECHNIQUE: Multiplanar multisequence MRI of the brain was obtained without the use of IV contrast. FINDINGS: The cigar head holer localizer images demonstrate no gross extracranial abnormality. There is a linear 0.5 cm focus of restricted diffusion within the left de los santos radiata/posterior aspect of the left external capsule distribution which demonstrates decreased signal on the ADC map and increased T2/FLAIR signal. Additionally, there is an 8 mm focus of slightly increased diffusion-weighted signal with intermediate to decreased signal on ADC map, image 6 of series 4 within the left cerebellar hemisphere. This focus also demonstrates increased T2/FLAIR signal. Scattered chronic lacunar infarcts of the cerebellum, basal ganglia, left thalamus and roderick. Age-related involutional changes. Mild to moderate T2/FLAIR hyperintense foci are noted throughout the white matter. No acute intracranial hemorrhage, midline shift, abnormal extra-axial collection, hydrocephalus or intracranial mass. The cerebral venous sinuses and major arterial flow voids appear patent. The mastoid air cells are clear. There is a 1.9 cm focus of polypoid mucosal thickening involving the right posterior nasal aperture. Mild mucosal thickening of the ethmoid air cells. The skull, orbits and soft tissues are unremarkable. IMPRESSION: 1. 2.5 cm linear focus of restricted diffusion involving the left de los santos radiata/external capsule distribution is compatible with an acute infarct. 2. Subcentimeter focus of restricted diffusion involving the left cerebellar hemisphere is suggestive of an acute versus subacute infarct. 3. Chronic lacunar infarcts of the cerebellum, brainstem and basal ganglia. 4. Involutional changes with chronic microvascular ischemic disease. ACT 112: Negative or not required by law. The above report was generated using voice recognition software. It may contain grammatical, syntax or spelling errors. Electronically signed by: Alexi Rock M.D. 11/29/2021 7:27 AM Medications Administered Current Inpatient Medications Acetaminophen (Acetaminophen 325 Mg Tab) 650 mg PO Q4H PRN PRN Reason: pain/fever Stop: 12/28/21 01:48 Amlodipine Besylate (Amlodipine Besylate 5 Mg Tab) 2.5 mg PO QAM [facility] Stop: 12/29/21 10:44 Aspirin (Aspirin 81 Mg Ectab) 81 mg PO QAM [facility] Stop: 12/29/21 08:59 Last Admin: 11/29/21 08:17 Dose: 81 mg Documented by: Dextrose (Dextrose 50% 50 Ml Syringe) 25 - 50 ml IV UD PRN; Protocol PRN Reason: Hypoglycemia Protocol Stop: 12/28/21 01:48 Enoxaparin Sodium (Enoxaparin Inj 40 Mg/0.4 Ml Syr) 40 mg SQ Q24H [facility] Stop: 12/28/21 08:59 Last Admin: 11/29/21 08:18 Dose: 40 mg Documented by: Glucagon (Glucagon For Inj 1 Mg Vial) 1 mg SQ UD PRN; Protocol PRN Reason: Hypoglycemia Protocol Stop: 12/28/21 01:48 Glucose (Glucose 10 Tabs/Tube) 4 - 8 tabs PO UD PRN; Protocol PRN Reason: Hypoglycemia Protocol Stop: 12/28/21 01:48 Glucose (Glucose 40% Gel 15 Gm Tube) 15 - 30 gm PO UD PRN; Protocol PRN Reason: Hypoglycemia Protocol Stop: 12/28/21 01:48 Insulin Aspart (Insulin Aspart Per Unit) 0 units SC ACHS [facility] Stop: 12/28/21 01:48 Last Admin: 11/29/21 08:25 Dose: 3 units Documented by: Losartan Potassium (Losartan Potassium 50 Mg Tab) 50 mg PO HS [facility] Stop: 12/28/21 01:48 Last Admin: 11/28/21 20:03 Dose: 50 mg Documented by: Melatonin (Melatonin 3 Mg Tab) 3 mg PO HS [facility] Stop: 12/28/21 20:59 Last Admin: 11/28/21 20:03 Dose: 3 mg Documented by: Metoprolol Tartrate (Metoprolol Tartrate 1 Mg/Ml Vial) 5 mg IV Q4 PRN PRN Reason: Hypertension Stop: 12/28/21 00:00 Last Admin: 11/29/21 04:35 Dose: 5 mg Documented by: Metoprolol Tartrate (Metoprolol Tartrate 25 Mg Tab) 25 mg PO BID [facility] Stop: 12/28/21 20:59 Last Admin: 11/29/21 08:18 Dose: 25 mg Documented by: Miscellaneous (Carbohydrates For Hypoglycemia ) 15 - 30 gm PO UD PRN PRN Reason: Hypoglycemia Protocol Stop: 12/28/21 01:48 Ondansetron HCl (Ondansetron Inj 2 Mg/Ml 2 Ml Vial) 4 mg IV Q4H PRN PRN Reason: Nausea Stop: 12/28/21 01:48 Last Admin: 11/29/21 07:18 Dose: 4 mg Documented by: Polyethylene Glycol (Polyethylene (Miralax) 17 Gm Pack) 17 gm PO DAILY PRN PRN Reason: Constipation Stop: 12/28/21 16:35 Rosuvastatin Calcium (Rosuvastatin Calcium 20 Mg Tab) 40 mg PO QAM [facility] Stop: 12/29/21 08:59 Last Admin: 11/29/21 08:17 Dose: 40 mg Documented by: Resident Activity Tracking Resident Involvement: Resident Care Provided Care Provided: Adult Hospital Medicine (1) Hyperglycemia due to type 2 diabetes mellitus Diabetes mellitus alf insulin use: unspecified alf insulin use status Qualified Code(s): E11.65 - Type 2 diabetes mellitus with hyperglycemia
[2021-11-29] MEDS: ASPIRIN 81 MG ECTAB PO SCH (08:17)
[2021-11-29] MEDS: ROSUVASTATIN CALCIUM 20 MG TAB PO SCH (08:17)
[2021-11-29] MEDS: METOPROLOL TARTRATE 25 MG TAB PO SCH ×2 (08:18→19:51)
[2021-11-29] MEDS: ENOXAPARIN INJ 40 MG/0.4 ML SYR SQ SCH (08:18)
[2021-11-29] MEDS: INSULIN ASPART PER UNIT SC SCH ×4 (08:25→20:37)
[2021-11-29] MEDS ORDERED: amLODIPine BESYLATE 5 MG TAB PO SCH (10:45)
--- NOTE | 2021-11-29 14:59 | XCELERA ---
[id number]
[2021-11-29] MEDS ORDERED: hydrALAZINE HCL 20 MG/ML VIAL IV ONE (17:13)
--- NOTE | 2021-11-29 18:19 | Billing Data ---
Date of Service November 29, 2021 Coding Level of Care Code 57079 Subseq Hosp Care Lvl 3
[2021-11-29] MEDS: MELATONIN 3 MG TAB PO SCH (19:52)
[2021-11-29] MEDS: LOSARTAN POTASSIUM 50 MG TAB PO SCH (19:52)
[2021-11-30] MEDS: METOPROLOL TARTRATE 1 MG/ML VIAL IV PRN ×2 (02:14→06:33)
--- NOTE | 2021-11-30 06:57 | Hospitalist Progress Note ---
Date of Service November 30, 2021 Assessment & Plan (1) Hypertensive urgency: Plan: 71yo Male PMH Lasix surgery no PCP 20 years presents with 1 week of weakness in lower extremities. (1) Acute ischemic stroke: - Neck CTA 11/27= multiple high grade stenosis noted on b/l vertebral artery - Head CTA 11/27= no intracranial pathology, mild atherosclerotic disease - Brain MRI w/o contrast 11/29 = 1. 2.5 cm linear focus of restricted diffusion involving the left de los santos radiata/external capsule distribution is compatible with an acute infarct. 2. Subcentimeter focus of restricted diffusion involving the left cerebellar hemisphere is suggestive of an acute versus subacute infarct. 3. Chronic lacunar infarcts of the cerebellum, brainstem and basal ganglia. Involutional changes with chronic microvascular ischemic disease. - TSH normal. Folate B12 wnl. No smoking alcohol - mildly elevated ESR 40 - SPEP/UPEP pending - echo unremarkable - started aspirin 81mg daily - started rosuvastatin 40mg daily - patient understands he needs better control of HTN DM to prevent stroke recurrence - neurology consult placed - ordered CT head 11/30 no contrast given worsening symptoms 3 x 1.1 cm acute infarct within the left de los santos radiata and external capsule. Minimal mass effect. No hemorrhagic conversion. Possible slight increase in extent since MRI of November 29, 2021. (2) Diabetes: - A1c 9.9, newly diagnosed diabetic, patient made aware he is diabetic - Sliding scale - glucose well controlled in hospital with minimal insulin on carb consistent diet, patient may greatly improve glycemic control and diet change - DM educator consult placed: 1.) Insulin adjustments, as needed, to help maintain BG values in a safe range. 2.) Recommend discharge on Metformin ER 500mg BID with Jardiance or Farxiga give recent stroke PRESCRIPTIONS NEEDED: 1.) OneTouch Verio Test Strips to check 1x/day. 2.) OneTouch Delica Lancets 33 gauge to check 1x/day. (3) Hypertension: - Home BP 180-190 range. In the ER, BP consistently >200/110 - Start losartan 100 mg HS, Metoprolol Tartrate 25mg BID PO, Amlodipine 5mg daily - Metoprolol IV 5mg PRN for SBP > 180 or DBP 100. - renal artery duplex negative for stenosis - goal to maintain BP systolic 160-180 while in hospital (4) Atherosclerosis with HLD -Total cholesterol 220 -started rosuvastatin 40mg daily -started on ASA 81mg daily (5) Weakness - RUE and RLE weakness have progressed to immobile against gravity since admission - PT/OT ordered, recommend inpatient rehab - speech therapy ordered, noted aphasia and dysarthria, recommend speech therapy follow in rehab - contacted brother, updated 11/30 FENa: card consistent Code Status: Full DVT PPX: Lovenox PT/OT: inpatient rehab. Speech therapy: aphasia with dysarthria, continue speech therapy in rehab Case Management: looking into [facility] Dispo: med/tele, teletypesetter monitor discontinued Romina Ellis Do PGY 2, FCM (2) Hyperglycemia due to type 2 diabetes mellitus: (3) Diabetes: (4) Weakness: (5) Ischemic stroke: (6) Hypertension: (7) Atherosclerosis of vertebral artery: (8) Vertebral artery stenosis: Admission and Anticipated Discharge Date Admission Date: November 29, 2021 Supervising Physician Co-Signing Physician Notes I personally examined the patient and verified all rosenthal points of history and exam, discussed case, and agree with decision making with Dr Ellis Mostly tearful today about his deficits, worried about life moving forward. Tried to outline the expected plan of care, therapy, etc. to the best of my ability. Vitals noted, awake and alert pleasant no distress but very fatigued. HEENT normocephalic atraumatic mucous membranes moist. Breathing unlabored no accessory muscle use good effort. Skin shows no rashes no pallor or icterus. Does have a bit of a right facial droop now, worse right arm weakness. Somewhat slurred speech. Strokehas multiple strokes actually. Right-sided weakness appears to be related to the anterior circulation stroke. Given that he does not have significant carotid artery disease on that side, and thus far has not shown evidence of a central/cardioembolic source, strongly suspect atherosclerotic (from hypertension diabetes hyperlipidemia and age); weakness/dizziness also likely relates to cerebellar strokesof which it could easily be atherosclerotic, but also does have the prospect of atheroembolic from large vessel given his vertebral artery stenosis. Again risk factor reduction secondary risk reduction, PT/OT, supportive care, time. Certainly with multiple acute infarcts in different vascular distributions central embolic needs to be consideredbut I really suspect he is more atherosclerotic and atheroembolic given the clearly evident "smoking gun" risk factors already identifiedecho is reassuring/he has not shown atrial fibrillation on monitorbut for completeness after discharge would set him up with an event monitor. Follow and manage blood pressure cautiously to allow for autoregulation. Sugars have actually been very easy to controldiscussed with patient that this has heavy implications that lifestyle will predominantly be what is needed to control his sugars at home. PT/OT eval and treat, anticipate benefit from rehabasking case management to set referrals in that direction. His worsening seems to be more likely due to sobia-infarct edema then new or worsening ischemia New onset type 2 diabetesongoing education, acutely insulin management, chronically likely lifestyle predominantly metformin acutely after discharge, sugars once again acceptable Uncontrolled hypertensioncareful management given that a lot of the uncontrolled may be autoregulation continue to follow closely Hyperlipidemiacontinue intensity statin Weaknesssuspect dehydrationin addition to stroke Bilateral vertebral stenosissecondary risk reduction, outpatient follow-up with vascular otherwise as above Otherwise as above work towards rehab Subjective Patient seen at bedside, calm comfortable cooperative. He states his symptoms have worsened, now has increased word finding difficulty, unable to move right arm or right leg. He states sensation intact, no difficulty forming his tongue around words no facial motor deficits, left arm and leg strength intact. His nausea has improved, he now has a heavy sensation on his throat that does not impede his breathing, states his headache is still ongoing. Patient now has extreme difficulty maneuvering himself to bathroom, has been placed on condom catheter. He is highly worried about the bills in his house, he lives alone and is estranged from his family, states his neighbors have checked in that his house is intact, however has no one to assist him with bills. Patient understands that his current condition is looking at months of physical therapy to regain some of his mobility. He understands we are having some difficulty controlling his blood pressure. Review of Systems Review of Systems: Headache Negative fever chills Negative dizziness Negative chest pain palpitations SOB Negative nausea vomitting diarrhea constipation Negative numbness tingling rash swelling Physical Exam Constitutional: WD/WN, vitals as above Eyes: PERRL, conjunctivae normal, anicteric sclerae ENMT: external ear and nose normal, oropharynx normal Neck: trachea midline, no thyromegaly Respiratory: normal respiratory effort, lungs clear to auscultation Cardiovascular: RRR, no murmur, no edema Chest (Breasts): Chest: normal inspection of chest Gastrointestinal (Abdomen): normal bowel sounds, soft, nontender, no hepatosplenomegaly Skin: no rashes, warm and dry Neurologic: CN's II-XI intact bilaterally Unable to move right fingers or hand. Patient can extend right arm if positioned against gravity strength 2/5, cannot flex arm. Strength of left upper extremity intact 5/5 Unable to move right hip or knee, can plantarflex if positioned against gravity strength 2/5, cannot plantarflex, cannot move toes. Strength of left lower extremity intact 5/5 Sensation intact throughout Results & Data Results & Data ([facility]) Vital Signs (Past 12 Hours) Vital Signs Temp Pulse Pulse Resp BP BP Pulse Ox 11/30/21 06:37 36.8 C 78 18 190/99 H 95 11/30/21 06:33 85 190/99 H 11/30/21 05:43 75 11/30/21 02:14 76 186/98 H 11/30/21 01:49 36.9 C 76 18 186/98 H 97 11/29/21 23:00 36.8 C 89 18 171/84 H 95 Diagnostic Findings Laboratory Results WBC 8.19 K/uL (4.8-10.8) 11/29/21 06:09 RBC 4.49 M/uL (4.7-6.1) L 11/29/21 06:09 Hgb 12.3 g/dL (14.0-18.0) L 11/29/21 06:09 Hct 36.8 % (42-52) L 11/29/21 06:09 MCV 82.0 fL (80-100) 11/29/21 06:09 MCH 27.4 pg (25-34) 11/29/21 06:09 MCHC 33.4 g/dL (32-36) 11/29/21 06:09 RDW Std Deviation 39.7 fL (36.4-46.3) 11/29/21 06:09 RDW Coeff of Cassandra 13.3 % (11.5-14.5) 11/29/21 06:09 Plt Count 212 K/uL (130-400) 11/29/21 06:09 MPV 9.7 fL (7.4-10.4) 11/29/21 06:09 Immature Gran % (Auto) 0.2 % 11/27/21 14:15 Neut % (Auto) 72.1 % 11/27/21 14:15 Lymph % (Auto) 19.8 % 11/27/21 14:15 [place] % (Auto) 4.6 % 11/27/21 14:15 Eos % (Auto) 2.9 % 11/27/21 14:15 Baso % (Auto) 0.4 % 11/27/21 14:15 Neut # (Auto) 7.07 K/uL (1.4-6.5) H 11/27/21 14:15 Lymph # (Auto) 1.94 K/uL (1.2-3.4) 11/27/21 14:15 [place] # (Auto) 0.45 K/uL (0.11-0.59) 11/27/21 14:15 Eos # (Auto) 0.28 K/uL (0-0.5) 11/27/21 14:15 Baso # (Auto) 0.04 K/uL (0-0.2) 11/27/21 14:15 Immature Gran # (Auto) 0.02 K/uL (0.00-0.02) 11/27/21 14:15 ESR 40 mm/hr (0-20) H 11/27/21 14:23 Sodium 138 mmol/L (136-145) 11/30/21 06:52 Potassium 3.7 mmol/L (3.5-5.1) 11/30/21 06:52 Chloride 105 mmol/L (98-107) 11/30/21 06:52 Carbon Dioxide 24 mmol/L (21-32) 11/30/21 06:52 Anion Gap 9 (3-11) 11/30/21 06:52 BUN 23 mg/dl (6-23) 11/30/21 06:52 Creatinine 1.24 mg/dl (0.6-1.4) 11/30/21 06:52 Est Cr Clr Drug Dosing 53.8 ml/min 11/30/21 06:52 Est GFR ( Amer) 66.9 ml/min 11/30/21 06:52 Est GFR (Non-Af Amer) 57.7 ml/min 11/30/21 06:52 BUN/Creatinine Ratio 18.5 (10-20) 11/30/21 06:52 Glucose 159 mg/dl (70-99(Fasting)) H 11/30/21 06:52 POC Glucose 180 mg/dl (70-99) H 11/30/21 11:29 Estimat Average Glucose 237 mg/dl 11/28/21 05:42 Hemoglobin A1c 9.9 % (4.5-5.6) H 11/28/21 05:42 Calcium 8.5 mg/dl (8.5-10.1) 11/30/21 06:52 Phosphorus 3.2 mg/dl (2.5-4.9) 11/27/21 14:15 Magnesium 2.0 mg/dl (1.7-2.4) 11/28/21 05:42 Total Bilirubin 0.7 mg/dl (0.2-1.0) 11/27/21 14:15 AST 14 U/L (13-39) 11/27/21 14:15 ALT 10 U/L (7-52) 11/27/21 14:15 Alkaline Phosphatase 70 U/L (34-104) 11/27/21 14:15 Total Creatine Kinase 95 U/L (30-223) 11/27/21 14:15 Troponin I High Sens 7.1 pg/ml (0-20) 11/27/21 14:15 Total Protein 7.9 gm/dl (6.0-8.3) 11/27/21 14:15 Albumin 4.3 gm/dl (3.4-5.0) 11/27/21 14:15 Globulin 3.6 gm/dl (2.5-4.0) 11/27/21 14:15 Albumin/Globulin Ratio 1.2 (0.9-2) 11/27/21 14:15 Triglycerides 95 mg/dl (0-150) 11/28/21 05:42 Cholesterol 220 mg/dl (0-200) H 11/28/21 05:42 LDL Cholesterol, Calc 156 mg/dl 11/28/21 05:42 VLDL Cholesterol, Calc 19 mg/dl (0-30) 11/28/21 05:42 HDL Cholesterol 45 mg/dl 11/28/21 05:42 Cholesterol/HDL Ratio 4.9 (0-5) 11/28/21 05:42 Vitamin B12 283 pg/ml (180-914) 11/28/21 05:42 Folate > 22.30 ng/ml (>5.38) 11/28/21 05:42 TSH 1.719 uIu/ml (0.300-4.500) 11/27/21 14:15 Urine Color Yellow 11/27/21 17:09 Urine Appearance Clear (Clear) 11/27/21 17:09 Urine pH 5.0 (4.5-7.5) 11/27/21 17:09 Ur Specific Stow 1.030 (1.000-1.030) 11/27/21 17:09 Urine Protein 1+ (Negative) H 11/27/21 17:09 Urine Glucose (UA) 3+ (Negative) H 11/27/21 17:09 Urine Ketones Trace (Negative) H 11/27/21 17:09 Urine Blood Trace (Negative) H 11/27/21 17:09 Urine Nitrite Negative (Negative) 11/27/21 17:09 Urine Bilirubin Negative (Negative) 11/27/21 17:09 Urine Urobilinogen Negative (Negative) 11/27/21 17:09 Ur Leukocyte Esterase Negative (Negative) 11/27/21 17:09 Urine WBC (Auto) 1-5 /hpf (0-5) 11/27/21 17:09 Urine RBC (Auto) 0-4 /hpf (0-4) 11/27/21 17:09 U Hyaline Cast (Auto) 1-5 /lpf (0-5) 11/27/21 17:09 U Epithel Cells (Auto) 0-5 /lpf (0-5) 11/27/21 17:09 Urine Bacteria (Auto) Negative (Negative) 11/27/21 17:09 U Random Total Protein 44 mg/dL (5-25) H 11/27/21 19:06 Ur Creatinine mg/dL 109 mg/dL (20-320) 11/27/21 19:06 Protein/Creatinin Ratio 0.404 (0.022-0.128) H 11/27/21 19:06 Urine Albumin (%) 62 % 11/27/21 19:06 U Tnkac-4-Jmwcilyt (%) 1 % 11/27/21 19:06 U Mrkrr-6-Engrozwk (%) 13 % 11/27/21 19:06 U Beta Globulin (%) 8 % 11/27/21 19:06 U Gamma Globulin (%) 16 % 11/27/21 19:06 U Abnormal Prot Band 1 DNR mg/dL (NONE DETECTED) 11/27/21 19:06 U Abnormal Prot Band 2 DNR mg/dL (NONE DETECTED) 11/27/21 19:06 U Abnormal Prot Band 3 DNR mg/dL (NONE DETECTED) 11/27/21 19:06 Urine PEP Interpret SEE NOTE 11/27/21 19:06 Lyme Disease IgG Ab Negative (Negative) 11/27/21 14:15 Lyme Disease IgM Ab Negative (Negative) 11/27/21 14:15 SARS-CoV-2, RNA, NAAT NEGATIVE (NEGATIVE) 11/27/21 18:48 Impressions Chest X-Ray 11/27/21 13:14 XR chest 1V portable HISTORY: 71 years-old Male weakness acute weakness COMPARISON: None TECHNIQUE: Portable AP view of the chest FINDINGS: The cardiomediastinal and hilar silhouettes are within normal limits. Atherosclerosis of the thoracic aorta. No pneumothorax, pleural effusion, airspace consolidation or overt pulmonary edema. Degenerative changes of the shoulders and spine. IMPRESSION: No acute process. ACT 112: Negative or not required by law. The above report was generated using voice recognition software. It may contain grammatical, syntax or spelling errors. Electronically signed by: Alexi Rock M.D. 11/27/2021 3:12 PM Abdomen/Pelvis CT 11/27/21 15:29 CT abd pelvis wo con CLINICAL HISTORY: back pain, BLE weakness TECHNIQUE: Helical axial images of the abdomen and pelvis were obtained. Automated dose lowering techniques and/or adjustment according to patient size were utilized for this exam. This exam was performed without intravenous contrast. CT DOSE: 320.70 mGy.cm COMPARISON: Comparison is made to CT abdomen pelvis 02/19/2007 FINDINGS: Lower chest: No acute abnormality Liver: Unremarkable. No focal lesions are seen. Gallbladder and biliary tree: No calcified gallstones. Normal caliber wall. No intra- or extrahepatic biliary ductal dilation. Pancreas: Unremarkable, no focal lesions. Spleen: Unremarkable. Adrenals: Unremarkable. Kidneys and ureters: Perinephric stranding is noted bilaterally. Bladder: Unremarkable. Reproductive organs: Prostatomegaly is seen. Bowel: Unremarkable appearance of the bowel. The appendix is normal. A small hiatal hernia is seen. Lymph nodes Retroperitoneal: Unremarkable. Mesenteric: Subcentimeter lymph nodes are noted. Pelvic: Unremarkable. Peritoneum: Pearl mesentery is seen in the central abdomen, somewhat more prominent than in the prior exam. Vessels: Atherosclerotic calcifications are seen. Abdominal wall: Left fat containing inguinal hernia. Bones: Degenerative changes in the visualized spine. No evidence of acute fracture. IMPRESSION: No acute abnormalities to explain back pain and bilateral weakness. Slightly progressed Pearl mesentery is noted, which is nonspecific but can be seen in mesenteric adenitis. ACT 112: Negative or not required by law. Electronically signed by: Tutu Cartwright M.D. 11/27/2021 4:28 PM Head CTA 11/27/21 21:53 CT angio head wo/w CLINICAL HISTORY: dizzy, elevated bp COMPARISON STUDY: No previous studies for comparison. CT DOSE: 1622.29 mGy.cm TECHNIQUE: CT Angio of the brain was performed.followed by image post processing with coronal, and sagittal MIP reformats. Contrast Volume: Optiray 320, 119 ml FINDINGS: Vascular findings: There is normal enhancement within the internal carotid arteries bilaterally. There is normal enhancement noted within the anterior, middle and posterior cerebral arteries. There is mild atherosclerotic disease present with no evidence for significant stenosis. Nonvascular findings: There is mild cerebral cortical atrophy and decreased attenuation in the periventricular white matter representing remote small vessel disease. There is no evidence for an acute infarct or cerebral edema. IMPRESSION: 1. Mild atherosclerotic disease involving the cavernous portions of the bilateral carotid arteries and intracranial portion of the bilateral vertebral arteries with no evidence for focal stenosis. 2. No acute intracerebral pathology. ACT 112: Negative or not required by law. Electronically signed by: Francesco Rincon M.D. 11/28/2021 7:47 AM Neck CTA 11/27/21 21:53 CT angio neck with con CLINICAL HISTORY: 71 years-old Male with dizzy, elevated bp. Acute dizziness with hypertension COMPARISON STUDY: CTA of the head of same day TECHNIQUE: Following the IV administration of 119 mL of Optiray, CT angiogram of the neck was performed from the aortic arch to the skull base. Images are reviewed in the axial, sagittal, and coronal planes. 3-D MIPS images are created and assessed. IV contrast was administered without complication. All measurements were calculated based on NASCET criteria. A dose lowering technique was utilized adhering to the principles of ALARA. FINDINGS: Atherosclerotic plaque of the thoracic arch results in mild stenosis at the origin of the left subclavian artery. The innominate and imaged subclavian arteries are patent. Patent common carotid arteries. There is minimal atheromatous plaque of the carotid bulbs and proximal cervical segments of the internal carotid arteries without high-grade stenosis. There is approximately 50% stenosis involving the proximal petrous portion of the right internal carotid artery on image 311 of series 8 with mild stenosis involving the mid to distal petrous segment on image 325 of series 8. There is no high-grade stenosis within this distribution. Atherosclerotic plaque of the cavernous, clinoid and supraclinoid segments results in approximately 50% stenosis bilaterally. There is high-grade stenosis at the origin of the left vertebral artery secondary to atherosclerotic plaque. The left vertebral artery is dominant. Short segment area of high-grade stenosis involves the proximal V4 segment of the left vertebral artery on image 300. Multifocal stenoses involves the V2 segment of the right vertebral artery measuring up to 50% on image 187 of series 8 at the level of C4 secondary to atherosclerotic plaquing degenerative spurring. There is of high-grade stenosis are noted within the V3 and V4 segments of the right vertebral artery and vertebral basilar confluence. The lung apices are clear without pneumothorax. Unremarkable soft tissues. Degenerative changes of the cervical spine. Mild mucosal thickening of the paranasal sinuses. IMPRESSION: 1. 50% stenosis involves the proximal aspect of the petrous segment of the right internal carotid artery with atheromatous plaque versus age-indeterminate dissection involving the mid petrous segment resulting in less than 50% stenosis. 2. Multifocal high-grade stenoses of the vertebral arteries. Both of these findings were called to the nursing floor at time of dictation. ACT 112: Negative or not required by law. The above report was generated using voice recognition software. It may contain grammatical, syntax or spelling errors. Electronically signed by: Alexi Rock M.D. 11/28/2021 9:39 AM Brain MRI 11/29/21 00:41 MR brain wo con HISTORY: 71 years-old Male cerebellar symptoms b/l vertebral artery stenosis acute strokelike symptoms COMPARISON: CTA head and neck 11/27/2021 TECHNIQUE: Multiplanar multisequence MRI of the brain was obtained without the use of IV contrast. FINDINGS: The climatology teacher localizer images demonstrate no gross extracranial abnormality. There is a linear 0.5 cm focus of restricted diffusion within the left de los santos radiata/posterior aspect of the left external capsule distribution which demonstrates decreased signal on the ADC map and increased T2/FLAIR signal. Additionally, there is an 8 mm focus of slightly increased diffusion-weighted signal with intermediate to decreased signal on ADC map, image 6 of series 4 within the left cerebellar hemisphere. This focus also demonstrates increased T2/FLAIR signal. Scattered chronic lacunar infarcts of the cerebellum, basal ganglia, left thalamus and roderick. Age-related involutional changes. Mild to moderate T2/FLAIR hyperintense foci are noted throughout the white matter. No acute intracranial hemorrhage, midline shift, abnormal extra-axial collection, hydrocephalus or intracranial mass. The cerebral venous sinuses and major arterial flow voids appear patent. The mastoid air cells are clear. There is a 1.9 cm focus of polypoid mucosal thickening involving the right posterior nasal aperture. Mild mucosal thickening of the ethmoid air cells. The skull, orbits and soft tissues are unremarkable. IMPRESSION: 1. 2.5 cm linear focus of restricted diffusion involving the left de lso santos radiata/external capsule distribution is compatible with an acute infarct. 2. Subcentimeter focus of restricted diffusion involving the left cerebellar hemisphere is suggestive of an acute versus subacute infarct. 3. Chronic lacunar infarcts of the cerebellum, brainstem and basal ganglia. 4. Involutional changes with chronic microvascular ischemic disease. ACT 112: Negative or not required by law. The above report was generated using voice recognition software. It may contain grammatical, syntax or spelling errors. Electronically signed by: Alexi Rock M.D. 11/29/2021 7:27 AM Renal Artery Duplex 11/30/21 07:26 US duplex renal artery CLINICAL HISTORY: resistant hypertension TECHNIQUE: Real-time grayscale and color and spectral Doppler ultrasound imaging of the kidneys was performed. Comparison: None available at the time of this dictation. FINDINGS: RIGHT: The right kidney measures 10.3 cm in length. Normal echogenicity with preserved corticomedullary differentiation. Normal cortical thickness. No hydronephrosis. No convincing evidence of calculus or mass. Spectral analysis: Intrarenal resistive indices range from 0.62 to 0.73. Waveforms are normal in appearance.. Renal artery patent with peak systolic velocity 148 cm/s proximally, 124 cm/s in the midportion, and 118 cm/s distally. Renal vein patent. LEFT: The left kidney measures 10.3 cm in length. Normal echogenicity with preserved corticomedullary differentiation. Normal cortical thickness. No hydronephrosis. No convincing evidence of calculus or mass. Spectral analysis: Intrarenal resistive indices range from 0.53 to 0.60. Waveforms are normal in appearance. Renal artery patent with peak systolic velocity 130 cm/s proximally, 120 cm/s in the midportion, and 117 cm/s distally. Renal vein patent. Abdominal aorta: Patent. Peak systolic velocity 96 cm/s. Bladder: Normal. Bilateral ureteral jets present. Reference ranges: Normal main renal artery peak systolic velocity less than 180 cm/s. Ratio of renal artery PSV to aortic PSV less than 3.5 equates to normal or less than 60% stenosis. Only one of the two criteria listed needs to be met for diagnosis. IMPRESSION: No evidence of renal artery stenosis. ACT 112: Negative or not required by law. Electronically signed by: Tutu Cartwright M.D. 11/30/2021 2:22 PM Medications Administered Current Inpatient Medications Acetaminophen (Acetaminophen 325 Mg Tab) 650 mg PO Q4H PRN PRN Reason: pain/fever Stop: 12/28/21 01:48 Last Admin: 11/30/21 06:32 Dose: 650 mg Documented by: Amlodipine Besylate (Amlodipine Besylate 5 Mg Tab) 5 mg PO QAM [facility] Stop: 12/30/21 08:59 Last Admin: 11/30/21 08:13 Dose: 5 mg Documented by: Aspirin (Aspirin 81 Mg Ectab) 81 mg PO QAM [facility] Stop: 12/29/21 08:59 Last Admin: 11/30/21 08:13 Dose: 81 mg Documented by: Dextrose (Dextrose 50% 50 Ml Syringe) 25 - 50 ml IV UD PRN; Protocol PRN Reason: Hypoglycemia Protocol Stop: 12/28/21 01:48 Enoxaparin Sodium (Enoxaparin Inj 40 Mg/0.4 Ml Syr) 40 mg SQ Q24H [facility] Stop: 12/28/21 08:59 Last Admin: 11/30/21 08:13 Dose: 40 mg Documented by: Glucagon (Glucagon For Inj 1 Mg Vial) 1 mg SQ UD PRN; Protocol PRN Reason: Hypoglycemia Protocol Stop: 12/28/21 01:48 Glucose (Glucose 10 Tabs/Tube) 4 - 8 tabs PO UD PRN; Protocol PRN Reason: Hypoglycemia Protocol Stop: 12/28/21 01:48 Glucose (Glucose 40% Gel 15 Gm Tube) 15 - 30 gm PO UD PRN; Protocol PRN Reason: Hypoglycemia Protocol Stop: 12/28/21 01:48 Insulin Aspart (Insulin Aspart Per Unit) 0 units SC [facility] Stop: 12/28/21 01:48 Last Admin: 11/30/21 12:45 Dose: 4 units Documented by: Losartan Potassium (Losartan Potassium 50 Mg Tab) 100 mg PO [facility] Stop: 12/29/21 20:59 Last Admin: 11/29/21 19:52 Dose: 100 mg Documented by: Melatonin (Melatonin 3 Mg Tab) 3 mg PO [facility] Stop: 12/28/21 20:59 Last Admin: 11/29/21 19:52 Dose: 3 mg Documented by: Metoprolol Tartrate (Metoprolol Tartrate 1 Mg/Ml Vial) 5 mg IV Q4 PRN PRN Reason: Hypertension Stop: 12/28/21 00:00 Last Admin: 11/30/21 06:33 Dose: 5 mg Documented by: Metoprolol Tartrate (Metoprolol Tartrate 25 Mg Tab) 25 mg PO BID [facility] Stop: 12/28/21 20:59 Last Admin: 11/30/21 08:12 Dose: 25 mg Documented by: Miscellaneous (Carbohydrates For Hypoglycemia ) 15 - 30 gm PO UD PRN PRN Reason: Hypoglycemia Protocol Stop: 12/28/21 01:48 Ondansetron HCl (Ondansetron Inj 2 Mg/Ml 2 Ml Vial) 4 mg IV Q4H PRN PRN Reason: Nausea Stop: 12/28/21 01:48 Last Admin: 11/29/21 07:18 Dose: 4 mg Documented by: Polyethylene Glycol (Polyethylene (Miralax) 17 Gm Pack) 17 gm PO DAILY PRN PRN Reason: Constipation Stop: 12/28/21 16:35 Polyethylene Glycol (Polyethylene (Miralax) 17 Gm Pack) 17 gm PO DAILY [facility] Stop: 12/30/21 10:14 Last Admin: 11/30/21 11:20 Dose: Not Given Documented by: Rosuvastatin Calcium (Rosuvastatin Calcium 20 Mg Tab) 40 mg PO [facility] Stop: 12/29/21 08:59 Last Admin: 11/30/21 08:13 Dose: 40 mg Documented by: Resident Activity Tracking Resident Involvement: Resident Care Provided Care Provided: Adult Hospital Medicine (1) Hyperglycemia due to type 2 diabetes mellitus 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
[2021-11-30 07:42] LABS: Creatinine Ur 109 mg/dL (20-320); Protein, Urine Random 44 mg/dL (5-25); Ur Protein/Creat Ratio mg/g 404 mg/g creat (22-128); Urine Abnormal Protein Band 1 DNR mg/dL (NONE DETECTED); Urine Abnormal Protein Band 2 DNR mg/dL (NONE DETECTED); Urine Abnormal Protein Band 3 DNR mg/dL (NONE DETECTED); Urine Protein/Creatinine Ratio 0.404 (0.022-0.128)
[2021-11-30 07:44] LABS: BUN Creatinine Ratio 18.5 (10-20); Calcium 8.5 mg/dl (8.5-10.1); Creatinine Clr Calc Pharmacy 53.8 ml/min; Est GFR (African American) 66.9 ml/min; Est GFR (Non-African American) 57.7 ml/min; Potassium 3.7 mmol/L (3.5-5.1)
[2021-11-30] MEDS: METOPROLOL TARTRATE 25 MG TAB PO SCH ×2 (08:12→21:51)
[2021-11-30] MEDS: INSULIN ASPART PER UNIT SC SCH ×4 (08:12→21:51)
[2021-11-30] MEDS: ENOXAPARIN INJ 40 MG/0.4 ML SYR SQ SCH (08:13)
[2021-11-30] MEDS: amLODIPine BESYLATE 5 MG TAB PO SCH (08:13)
[2021-11-30] MEDS: ROSUVASTATIN CALCIUM 20 MG TAB PO SCH (08:13)
[2021-11-30] MEDS: ASPIRIN 81 MG ECTAB PO SCH (08:13)
[2021-11-30] MEDS: POLYETHYLENE (MIRALAX) 17 GM PACK PO SCH (11:20)
--- NOTE | 2021-11-30 14:24 | Ultrasound Report ---
US duplex renal artery CLINICAL HISTORY: resistant hypertension TECHNIQUE: Real-time grayscale and color and spectral Doppler ultrasound imaging of the kidneys was p erformed. Comparison: None available at the time of this dictation. FINDINGS: RIGHT: The right kidney measures 10.3 cm in length. Normal echogenicity with preserved corticomedullary diff erentiation. Normal cortical thickness. No hydronephrosis. No convincing evidence of calculus or mass . Spectral analysis: Intrarenal resistive indices range from 0.62 to 0.73. Waveforms are normal in appearance.. Renal zachary ry patent with peak systolic velocity 148 cm/s proximally, 124 cm/s in the midportion, and 118 cm/s d istally. Renal vein patent. LEFT: The left kidney measures 10.3 cm in length. Normal echogenicity with preserved corticomedullary diffe rentiation. Normal cortical thickness. No hydronephrosis. No convincing evidence of calculus or mass. Spectral analysis: Intrarenal resistive indices range from 0.53 to 0.60. Waveforms are normal in appearance. Renal arter y patent with peak systolic velocity 130 cm/s proximally, 120 cm/s in the midportion, and 117 cm/s di stally. Renal vein patent. Abdominal aorta: Patent. Peak systolic velocity 96 cm/s. Bladder: Normal. Bilateral ureteral jets present. Reference ranges: Normal main renal artery peak systolic velocity less than 180 cm/s. Ratio of renal artery PSV to aort ic PSV less than 3.5 equates to normal or less than 60% stenosis. Only one of the two criteria listed needs to be met for diagnosis. IMPRESSION: No evidence of renal artery stenosis. ACT 112: Negative or not required by law. Electronically signed by: Tutu Cartwright M.D. 11/30/2021 2:22 PM
--- NOTE | 2021-11-30 16:08 | CT Scan Report ---
CT OF THE HEAD WITHOUT CONTRAST CLINICAL HISTORY: Worsening stroke symptoms COMPARISON STUDY: Head CT and CTA of the head November 27, 2021. MRI of the brain November 29, 2021. CT DOSE: 614.27 mGy.cm TECHNIQUE: Helical axial images of the head were obtained without IV contrast. Automated exposure con trol was utilized for the study. A dose lowering technique was utilized adhering to the principles o f ALARA. FINDINGS: No acute intracranial hemorrhage is present. Note is made of a 3 x 1.1 cm hypodensity withi n the left [place] radiata/external capsule consistent with acute infarct. Extensive may have slightly increased since MRI of November 29, 2021. There is minimal mass effect. No hemorrhagic conversion is not ed. Basal cisterns are patent. There are no extra axial collections. IMPRESSION: 3 x 1.1 cm acute infarct within the left [place] radiata and external capsule. Minimal ma ss effect. No hemorrhagic conversion. Possible slight increase in extent since MRI of November 29, 2021. ACT 112: Negative or not required by law. Electronically signed by: Genaro Melendez M.D. 11/30/2021 4:07 PM
[2021-11-30 18:02] LABS: Albumin 3.9 g/dL (3.8-4.8); Alpha 1 Globulin 0.3 g/dL (0.2-0.3); Alpha 2 Globulin 0.7 g/dL (0.5-0.9); Beta-1-Globulin 0.4 g/dL (0.4-0.6); Beta-2-Globulin 0.4 g/dL (0.2-0.5); Gamma Globulin 1.1 g/dL (0.8-1.7); Monoclonal Protein Band 1 DNR g/dL (NONE DETECTED); Monoclonal Protein Band 2 DNR g/dL (NONE DETECTED); Monoclonal Protein Band 3 DNR g/dL (NONE DETECTED); Total Protein 6.7 g/dL (6.1-8.1)
--- NOTE | 2021-11-30 18:26 | Billing Data ---
Date of Service November 30, 2021 Coding Level of Care Code 97972 Subseq Hosp Care Lvl 3
[2021-11-30] MEDS: LOSARTAN POTASSIUM 50 MG TAB PO SCH (21:52)
[2021-11-30] MEDS: MELATONIN 3 MG TAB PO SCH (21:52)
--- NOTE | 2021-12-01 06:46 | Hospitalist Progress Note ---
Date of Service December 01, 2021 Assessment & Plan (1) Hypertensive urgency: Plan: 71yo Male PMH Lasix surgery no PCP 20 years presents with 1 week of weakness in lower extremities. (1) Acute ischemic stroke: - Neck CTA 11/27= multiple high grade stenosis noted on b/l vertebral artery - Head CTA 11/27= no intracranial pathology, mild atherosclerotic disease - Brain MRI w/o contrast 11/29 = 1. 2.5 cm linear focus of restricted diffusion involving the left de los santos radiata/external capsule distribution is compatible with an acute infarct. 2. Subcentimeter focus of restricted diffusion involving the left cerebellar hemisphere is suggestive of an acute versus subacute infarct. 3. Chronic lacunar infarcts of the cerebellum, brainstem and basal ganglia. Involutional changes with chronic microvascular ischemic disease. - echo unremarkable - CT head 11/30 no contrast given worsening symptoms 3 x 1.1 cm acute infarct within the left de [place] santos radiata and external capsule. Minimal mass effect. No hemorrhagic conversion. Possible slight increase in extent since MRI of November 29, 2021. - TSH normal. Folate B12 wnl. No smoking alcohol - mildly elevated ESR 40 - SPEP/UPEP pending - patient understands he needs better control of HTN DM to prevent stroke recurrence - neurology consult placed, recommend starting plavix 75mg daily with ASA 81mg for 3 weeks, after which plavix alone. Consider adding fluoxetine for depressed mood. Continue BP glucose control, PT/OT/speech therapy - started aspirin 81mg daily, rosuvastatin 40mg daily (2) Diabetes: - A1c 9.9, newly diagnosed diabetic, patient made aware he is diabetic - Sliding scale - glucose well controlled in hospital with minimal insulin on carb consistent diet, patient may greatly improve glycemic control and diet change - DM educator consult placed: 1.) Insulin adjustments, as needed, to help maintain BG values in a safe range. 2.) Recommend discharge on Metformin ER 500mg BID with Jardiance or Farxiga give recent stroke PRESCRIPTIONS NEEDED: 1.) OneTouch Verio Test Strips to check 1x/day. 2.) OneTouch Delica Lancets 33 gauge to check 1x/day. (3) Hypertension: - Home BP 180-190 range. In the ER, BP consistently >200/110 - Start losartan 100 mg HS, Metoprolol Tartrate 25mg BID PO, Amlodipine 5mg daily if patient's BP continues to stay around systolic 160, will consider decreasing metoprolol to reduce medication complexity - Metoprolol IV 5mg PRN for SBP > 180 or DBP 100. - renal artery duplex negative for stenosis - goal to maintain BP systolic 160-180 while in hospital - 12/01 BP 151/80 (4) Atherosclerosis with HLD -Total cholesterol 220 -started rosuvastatin 40mg daily -started on ASA 81mg Plavix 75mg daily, will transition to plavix alone in 3 weeks (5) Weakness - RUE and RLE weakness have progressed to immobile against gravity since admission - PT/OT ordered, recommend inpatient rehab - speech therapy ordered, noted aphasia and dysarthria, recommend speech therapy follow in rehab Patient heaviness in throat and some choking with swallowing may indicate dysphagia, 11/30 bedside swallow study wnl, will continue to monitor - Family updated as of 12/01 FENa: card consistent Code Status: Full DVT PPX: Lovenox PT/OT: inpatient rehab. Speech therapy: aphasia with dysarthria, continue speech therapy in rehab Case Management: looking into [facility] Dispo: med/Romina Woodson Do PGY 2, FCM (2) Hyperglycemia due to type 2 diabetes mellitus: (3) Diabetes: (4) Weakness: (5) Ischemic stroke: (6) Hypertension: (7) Atherosclerosis of vertebral artery: (8) Vertebral artery stenosis: Admission and Anticipated Discharge Date Admission Date: November 29, 2021 Supervising Physician Co-Signing Physician Notes I personally examined the patient and verified all rosenthal points of history and exam, discussed case, and agree with decision making with Dr Ellis Case discussed with neuro. Input greatly appreciated. Patient is little bit frustrated about his weakness but otherwise no new complaints. Vitals noted, awake and alert pleasant no distress but very fatigued. HEENT normocephalic atraumatic mucous membranes moist. Breathing unlabored no accessory muscle use good effort. Skin shows no rashes no pallor or icterus. Ongoing right-sided weakness as yesterday. Somewhat slurred speech. Strokehas multiple strokes actually. Right-sided weakness appears to be related to the anterior circulation stroke. Given that he does not have significant carotid artery disease on that side, and thus far has not shown evidence of a central/cardioembolic source, strongly suspect atherosclerotic (from hypertension diabetes hyperlipidemia and age); weakness/dizziness also likely relates to cerebellar strokesof which it could easily be atherosclerotic, but also does have the prospect of atheroembolic from large vessel given his vertebral artery stenosis. Again risk factor reduction secondary risk reduction, PT/OT, supportive care, time. Certainly with multiple acute infarcts in different vascular distributions central embolic needs to be consideredbut I really suspect he is more atherosclerotic and atheroembolic given the clearly evident "smoking gun" risk factors already identifiedecho is reassuring/he has not shown atrial fibrillation on monitorbut for completeness after discharge would set him up with an event monitor. Follow and manage blood pressure cautiously to allow for autoregulation. Sugars have actually been very easy to controldiscussed with patient that this has heavy implications that lifestyle will predominantly be what is needed to control his sugars at home. PT/OT eval and treat, anticipate benefit from rehabasking case management to set referrals in that direction. His worsening seems to be more likely due to sobia-infarct edema then new or worsening ischemia, but continue to follow closely. Ideally rehab. New onset type 2 diabetesongoing education, acutely insulin management, chronically likely lifestyle predominantly metformin acutely after discharge, sugars have been acceptable overall and overall quite easy to control Uncontrolled hypertensionat goal range mostly now. Continue current management and follow closely. Hyperlipidemiacontinue highintensity statin Weaknesssuspect dehydrationin addition to stroke Bilateral vertebral stenosissecondary risk reduction, outpatient follow-up with vascular otherwise as above Otherwise as above work towards rehabstable for rehab transfer if available Subjective Patient seen at bedside, calm comfortable cooperative. He states right arm and leg weakness has not changes, states he has difficulty with sensation in his right arm, no change in left leg and arm. He describes worsening speech, pressure in his throat without SOB, some coughing with drinking. He states his nausea has not returned but still has headache dizziness, states the dizziness is worse. He still describes dry mouth. Patient's brother and sister in law arrived today, agreed to assist transporting patient's bills to hospital. They have been updated regarding patient's situation. Review of Systems Review of Systems: Headache dizziness Negative fever chills Negative chest pain palpitations SOB Negative nausea vomitting diarrhea constipation Negative numbness tingling rash swelling Physical Exam Constitutional: WD/WN, vitals as above Eyes: PERRL, conjunctivae normal, anicteric sclerae ENMT: external ear and nose normal, oropharynx normal Mouth: + dry oral mucous membranes Neck: trachea midline, no thyromegaly Respiratory: normal respiratory effort, lungs clear to auscultation Cardiovascular: RRR, no murmur, no edema Chest (Breasts): Chest: normal inspection of chest Gastrointestinal (Abdomen): normal bowel sounds, soft, nontender, no hep atosplenomegaly Skin: no rashes, warm and dry Neurologic: CN's II-XI intact bilaterally (reduced elevated on right shoulder) Speech / Cognition: + expressive aphasia Coordination: + abnormal yckczw-ir-jone test Unable to move right fingers or hand. Patient can extend right arm if positioned against gravity strength 2/5, cannot flex arm. Strength of left upper extremity intact 5/5 Unable to move right hip or knee, can plantarflex if positioned against gravity strength 2/5, cannot plantarflex, cannot move toes. Strength of left lower extremity intact 5/5 Patient describes lack of sensation to right arm, no loss of sensation in other extremities Psychiatric: Mood: + depressed mood Results & Data Results & Data ([facility]) Vital Signs (Past 12 Hours) Vital Signs Temp Pulse Pulse Resp BP Pulse Ox 12/01/21 03:43 36.5 C 69 16 162/79 H 97 11/30/21 23:05 36.9 C 73 20 170/88 H 97 11/30/21 22:20 75 Diagnostic Findings Laboratory Results WBC 8.19 K/uL (4.8-10.8) 11/29/21 06:09 RBC 4.49 M/uL (4.7-6.1) L 11/29/21 06:09 Hgb 12.3 g/dL (14.0-18.0) L 11/29/21 06:09 Hct 36.8 % (42-52) L 11/29/21 06:09 MCV 82.0 fL (80-100) 11/29/21 06:09 MCH 27.4 pg (25-34) 11/29/21 06:09 MCHC 33.4 g/dL (32-36) 11/29/21 06:09 RDW Std Deviation 39.7 fL (36.4-46.3) 11/29/21 06:09 RDW Coeff of Cassandra 13.3 % (11.5-14.5) 11/29/21 06:09 Plt Count 212 K/uL (130-400) 11/29/21 06:09 MPV 9.7 fL (7.4-10.4) 11/29/21 06:09 Immature Gran % (Auto) 0.2 % 11/27/21 14:15 Neut % (Auto) 72.1 % 11/27/21 14:15 Lymph % (Auto) 19.8 % 11/27/21 14:15 Cochran % (Auto) 4.6 % 11/27/21 14:15 Eos % (Auto) 2.9 % 11/27/21 14:15 Baso % (Auto) 0.4 % 11/27/21 14:15 Neut # (Auto) 7.07 K/uL (1.4-6.5) H 11/27/21 14:15 Lymph # (Auto) 1.94 K/uL (1.2-3.4) 11/27/21 14:15 Cochran # (Auto) 0.45 K/uL (0.11-0.59) 11/27/21 14:15 Eos # (Auto) 0.28 K/uL (0-0.5) 11/27/21 14:15 Baso # (Auto) 0.04 K/uL (0-0.2) 11/27/21 14:15 Immature Gran # (Auto) 0.02 K/uL (0.00-0.02) 11/27/21 14:15 ESR 40 mm/hr (0-20) H 11/27/21 14:23 Sodium 138 mmol/L (136-145) 12/01/21 06:51 Potassium 3.8 mmol/L (3.5-5.1) 12/01/21 06:51 Chloride 105 mmol/L (98-107) 12/01/21 06:51 Carbon Dioxide 26 mmol/L (21-32) 12/01/21 06:51 Anion Gap 7 (3-11) 12/01/21 06:51 BUN 27 mg/dl (6-23) H 12/01/21 06:51 Creatinine 1.35 mg/dl (0.6-1.4) 12/01/21 06:51 Est Cr Clr Drug Dosing 49.5 ml/min 12/01/21 06:51 Est GFR ( Amer) 60.4 ml/min 12/01/21 06:51 Est GFR (Non-Af Amer) 52.1 ml/min 12/01/21 06:51 BUN/Creatinine Ratio 20.0 (10-20) 12/01/21 06:51 Glucose 166 mg/dl (70-99(Fasting)) H 12/01/21 06:51 POC Glucose 231 mg/dl (70-99) H 12/01/21 11:26 Estimat Average Glucose 237 mg/dl 11/28/21 05:42 Hemoglobin A1c 9.9 % (4.5-5.6) H 11/28/21 05:42 Calcium 8.6 mg/dl (8.5-10.1) 12/01/21 06:51 Phosphorus 3.2 mg/dl (2.5-4.9) 11/27/21 14:15 Magnesium 2.0 mg/dl (1.7-2.4) 11/28/21 05:42 Total Bilirubin 0.7 mg/dl (0.2-1.0) 11/27/21 14:15 AST 14 U/L (13-39) 11/27/21 14:15 ALT 10 U/L (7-52) 11/27/21 14:15 Alkaline Phosphatase 70 U/L (34-104) 11/27/21 14:15 Total Creatine Kinase 95 U/L (30-223) 11/27/21 14:15 Troponin I High Sens 7.1 pg/ml (0-20) 11/27/21 14:15 Total Protein 7.9 gm/dl (6.0-8.3) 11/27/21 14:15 Total Protein (PEP) 6.7 g/dL (6.1-8.1) 11/28/21 05:42 Albumin 4.3 gm/dl (3.4-5.0) 11/27/21 14:15 Albumin (PEP) 3.9 g/dL (3.8-4.8) 11/28/21 05:42 Globulin 3.6 gm/dl (2.5-4.0) 11/27/21 14:15 Albumin/Globulin Ratio 1.2 (0.9-2) 11/27/21 14:15 Fwtur-3-Wmyxlibqa 0.3 g/dL (0.2-0.3) 11/28/21 05:42 Mrsey-4-Vhzgblnni 0.7 g/dL (0.5-0.9) 11/28/21 05:42 Fqif-2-Efjeqgkr 0.4 g/dL (0.4-0.6) 11/28/21 05:42 Brnj-4-Rqftmykh 0.4 g/dL (0.2-0.5) 11/28/21 05:42 Gamma Globulins 1.1 g/dL (0.8-1.7) 11/28/21 05:42 Monoclonal Peak 3 DNR g/dL (NONE DETECTED) 11/28/21 05:42 Ser Monoclonl Protein DNR g/dL (NONE DETECTED) 11/28/21 05:42 Ser Monoclonal Prot 2 DNR g/dL (NONE DETECTED) 11/28/21 05:42 PEP Interpretation SEE NOTE 11/28/21 05:42 Triglycerides 95 mg/dl (0-150) 11/28/21 05:42 Cholesterol 220 mg/dl (0-200) H 11/28/21 05:42 LDL Cholesterol, Calc 156 mg/dl 11/28/21 05:42 VLDL Cholesterol, Calc 19 mg/dl (0-30) 11/28/21 05:42 HDL Cholesterol 45 mg/dl 11/28/21 05:42 Cholesterol/HDL Ratio 4.9 (0-5) 11/28/21 05:42 Vitamin B12 283 pg/ml (180-914) 11/28/21 05:42 Folate > 22.30 ng/ml (>5.38) 11/28/21 05:42 TSH 1.719 uIu/ml (0.300-4.500) 11/27/21 14:15 Urine Color Yellow 11/27/21 17:09 Urine Appearance Clear (Clear) 11/27/21 17:09 Urine pH 5.0 (4.5-7.5) 11/27/21 17:09 Ur Specific [place] 1.030 (1.000-1.030) 11/27/21 17:09 Urine Protein 1+ (Negative) H 11/27/21 17:09 Urine Glucose (UA) 3+ (Negative) H 11/27/21 17:09 Urine Ketones Trace (Negative) H 11/27/21 17:09 Urine Blood Trace (Negative) H 11/27/21 17:09 Urine Nitrite Negative (Negative) 11/27/21 17:09 Urine Bilirubin Negative (Negative) 11/27/21 17:09 Urine Urobilinogen Negative (Negative) 11/27/21 17:09 Ur Leukocyte Esterase Negative (Negative) 11/27/21 17:09 Urine WBC (Auto) 1-5 /hpf (0-5) 11/27/21 17:09 Urine RBC (Auto) 0-4 /hpf (0-4) 11/27/21 17:09 U Hyaline Cast (Auto) 1-5 /lpf (0-5) 11/27/21 17:09 U Epithel Cells (Auto) 0-5 /lpf (0-5) 11/27/21 17:09 Urine Bacteria (Auto) Negative (Negative) 11/27/21 17:09 U Random Total Protein 44 mg/dL (5-25) H 11/27/21 19:06 Ur Creatinine mg/dL 109 mg/dL (20-320) 11/27/21 19:06 Protein/Creatinin Ratio 0.404 (0.022-0.128) H 11/27/21 19:06 Urine Albumin (%) 62 % 11/27/21 19:06 U Yvgsx-7-Xmhovcph (%) 1 % 11/27/21 19:06 U Lnzcc-9-Cktrydqn (%) 13 % 11/27/21 19:06 U Beta Globulin (%) 8 % 11/27/21 19:06 U Gamma Globulin (%) 16 % 11/27/21 19:06 U Abnormal Prot Band 1 DNR mg/dL (NONE DETECTED) 11/27/21 19:06 U Abnormal Prot Band 2 DNR mg/dL (NONE DETECTED) 11/27/21 19:06 U Abnormal Prot Band 3 DNR mg/dL (NONE DETECTED) 11/27/21 19:06 Urine PEP Interpret SEE NOTE 11/27/21 19:06 Lyme Disease IgG Ab Negative (Negative) 11/27/21 14:15 Lyme Disease IgM Ab Negative (Negative) 11/27/21 14:15 SARS-CoV-2, RNA, NAAT NEGATIVE (NEGATIVE) 11/27/21 18:48 Impressions Chest X-Ray 11/27/21 13:14 XR chest 1V portable HISTORY: 71 years-old Male weakness acute weakness COMPARISON: None TECHNIQUE: Portable AP view of the chest FINDINGS: The cardiomediastinal and hilar silhouettes are within normal limits. Atherosclerosis of the thoracic aorta. No pneumothorax, pleural effusion, airspace consolidation or overt pulmonary edema. Degenerative changes of the shoulders and spine. IMPRESSION: No acute process. ACT 112: Negative or not required by law. The above report was generated using voice recognition software. It may contain grammatical, syntax or spelling errors. Electronically signed by: Alexi Rock M.D. 11/27/2021 3:12 PM Abdomen/Pelvis CT 11/27/21 15:29 CT abd pelvis wo con CLINICAL HISTORY: back pain, BLE weakness TECHNIQUE: Helical axial images of the abdomen and pelvis were obtained. Automated dose lowering techniques and/or adjustment according to patient size were utilized for this exam. This exam was performed without intravenous contrast. CT DOSE: 320.70 mGy.cm COMPARISON: Comparison is made to CT abdomen pelvis 02/19/2007 FINDINGS: Lower chest: No acute abnormality Liver: Unremarkable. No focal lesions are seen. Gallbladder and biliary tree: No calcified gallstones. Normal caliber wall. No intra- or extrahepatic biliary ductal dilation. Pancreas: Unremarkable, no focal lesions. Spleen: Unremarkable. Adrenals: Unremarkable. Kidneys and ureters: Perinephric stranding is noted bilaterally. Bladder: Unremarkable. Reproductive organs: Prostatomegaly is seen. Bowel: Unremarkable appearance of the bowel. The appendix is normal. A small hiatal hernia is seen. Lymph nodes Retroperitoneal: Unremarkable. Mesenteric: Subcentimeter lymph nodes are noted. Pelvic: Unremarkable. Peritoneum: Pearl mesentery is seen in the central abdomen, somewhat more prominent than in the prior exam. Vessels: Atherosclerotic calcifications are seen. Abdominal wall: Left fat containing inguinal hernia. Bones: Degenerative changes in the visualized spine. No evidence of acute fracture. IMPRESSION: No acute abnormalities to explain back pain and bilateral weakness. Slightly progressed Pearl mesentery is noted, which is nonspecific but can be seen in mesenteric adenitis. ACT 112: Negative or not required by law. Electronically signed by: Tutu Cartwright M.D. 11/27/2021 4:28 PM Head CTA 11/27/21 21:53 CT angio head wo/w CLINICAL HISTORY: dizzy, elevated bp COMPARISON STUDY: No previous studies for comparison. CT DOSE: 1622.29 mGy.cm TECHNIQUE: CT Angio of the brain was performed.followed by image post processing with coronal, and sagittal MIP reformats. Contrast Volume: Optiray 320, 119 ml FINDINGS: Vascular findings: There is normal enhancement within the internal carotid arteries bilaterally. There is normal enhancement noted within the anterior, middle and posterior cerebral arteries. There is mild atherosclerotic disease present with no evidence for significant stenosis. Nonvascular findings: There is mild cerebral cortical atrophy and decreased attenuation in the periventricular white matter representing remote small vessel disease. There is no evidence for an acute infarct or cerebral edema. IMPRESSION: 1. Mild atherosclerotic disease involving the cavernous portions of the bilateral carotid arteries and intracranial portion of the bilateral vertebral arteries with no evidence for focal stenosis. 2. No acute intracerebral pathology. ACT 112: Negative or not required by law. Electronically signed by: Francesco Rincon M.D. 11/28/2021 7:47 AM Neck CTA 11/27/21 21:53 CT angio neck with con CLINICAL HISTORY: 71 years-old Male with dizzy, elevated bp. Acute dizziness with hypertension COMPARISON STUDY: CTA of the head of same day TECHNIQUE: Following the IV administration of 119 mL of Optiray, CT angiogram of the neck was performed from the aortic arch to the skull base. Images are reviewed in the axial, sagittal, and coronal planes. 3-D MIPS images are created and assessed. IV contrast was administered without complication. All measurements were calculated based on NASCET criteria. A dose lowering technique was utilized adhering to the principles of ALARA. FINDINGS: Atherosclerotic plaque of the thoracic arch results in mild stenosis at the origin of the left subclavian artery. The innominate and imaged subclavian arteries are patent. Patent common carotid arteries. There is minimal atheromatous plaque of the carotid bulbs and proximal cervical segments of the internal carotid arteries without high-grade stenosis. There is approximately 50% stenosis involving the proximal petrous portion of the right internal carotid artery on image 311 of series 8 with mild stenosis involving the mid to distal petrous segment on image 325 of series 8. There is no high-grade stenosis within this distribution. Atherosclerotic plaque of the cavernous, clinoid and supraclinoid segments results in approximately 50% stenosis bilaterally. There is high-grade stenosis at the origin of the left vertebral artery secondary to atherosclerotic plaque. The left vertebral artery is dominant. Short segment area of high-grade stenosis involves the proximal V4 segment of the left vertebral artery on image 300. Multifocal stenoses involves the V2 segment of the right vertebral artery measuring up to 50% on image 187 of series 8 at the level of C4 secondary to atherosclerotic plaquing degenerative spurring. There is of high-grade stenosis are noted within the V3 and V4 segments of the right vertebral artery and vertebral basilar confluence. The lung apices are clear without pneumothorax. Unremarkable soft tissues. Degenerative changes of the cervical spine. Mild mucosal thickening of the paranasal sinuses. IMPRESSION: 1. 50% stenosis involves the proximal aspect of the petrous segment of the right internal carotid artery with atheromatous plaque versus age-indeterminate disse ction involving the mid petrous segment resulting in less than 50% stenosis. 2. Multifocal high-grade stenoses of the vertebral arteries. Both of these findings were called to the nursing floor at time of dictation. ACT 112: Negative or not required by law. The above report was generated using voice recognition software. It may contain grammatical, syntax or spelling errors. Electronically signed by: Alexi Rock M.D. 11/28/2021 9:39 AM Brain MRI 11/29/21 00:41 MR brain wo con HISTORY: 71 years-old Male cerebellar symptoms b/l vertebral artery stenosis acute strokelike symptoms COMPARISON: CTA head and neck 11/27/2021 TECHNIQUE: Multiplanar multisequence MRI of the brain was obtained without the use of IV contrast. FINDINGS: The mental health aides teacher localizer images demonstrate no gross extracranial abnormality. There is a linear 0.5 cm focus of restricted diffusion within the left de [place] santos radiata/posterior aspect of the left external capsule distribution which demonstrates decreased signal on the ADC map and increased T2/FLAIR signal. Additionally, there is an 8 mm focus of slightly increased diffusion-weighted signal with intermediate to decreased signal on ADC map, image 6 of series 4 within the left cerebellar hemisphere. This focus also demonstrates increased T2/FLAIR signal. Scattered chronic lacunar infarcts of the cerebellum, basal ganglia, left thalamus and roderick. Age-related involutional changes. Mild to moderate T2/FLAIR hyperintense foci are noted throughout the white matter. No acute intracranial hemorrhage, midline shift, abnormal extra-axial collection, hydrocephalus or intracranial mass. The cerebral venous sinuses and major arterial flow voids appear patent. The mastoid air cells are clear. There is a 1.9 cm focus of polypoid mucosal thickening involving the right posterior nasal aperture. Mild mucosal thickening of the ethmoid air cells. The skull, orbits and soft tissues are unremarkable. IMPRESSION: 1. 2.5 cm linear focus of restricted diffusion involving the left de los santos radiata/external capsule distribution is compatible with an acute infarct. 2. Subcentimeter focus of restricted diffusion involving the left cerebellar hemisphere is suggestive of an acute versus subacute infarct. 3. Chronic lacunar infarcts of the cerebellum, brainstem and basal ganglia. 4. Involutional changes with chronic microvascular ischemic disease. ACT 112: Negative or not required by law. The above report was generated using voice recognition software. It may contain grammatical, syntax or spelling errors. Electronically signed by: Alexi Rock M.D. 11/29/2021 7:27 AM Renal Artery Duplex 11/30/21 07:26 US duplex renal artery CLINICAL HISTORY: resistant hypertension TECHNIQUE: Real-time grayscale and color and spectral Doppler ultrasound imaging of the kidneys was performed. Comparison: None available at the time of this dictation. FINDINGS: RIGHT: The right kidney measures 10.3 cm in length. Normal echogenicity with preserved corticomedullary differentiation. Normal cortical thickness. No hydronephrosis. No convincing evidence of calculus or mass. Spectral analysis: Intrarenal resistive indices range from 0.62 to 0.73. Waveforms are normal in appearance.. Renal artery patent with peak systolic velocity 148 cm/s proximally, 124 cm/s in the midportion, and 118 cm/s distally. Renal vein patent. LEFT: The left kidney measures 10.3 cm in length. Normal echogenicity with preserved corticomedullary differentiation. Normal cortical thickness. No hydronephrosis. No convincing evidence of calculus or mass. Spectral analysis: Intrarenal resistive indices range from 0.53 to 0.60. Waveforms are normal in appearance. Renal artery patent with peak systolic velocity 130 cm/s proximally, 120 cm/s in the midportion, and 117 cm/s distally. Renal vein patent. Abdominal aorta: Patent. Peak systolic velocity 96 cm/s. Bladder: Normal. Bilateral ureteral jets present. Reference ranges: Normal main renal artery peak systolic velocity less than 180 cm/s. Ratio of renal artery PSV to aortic PSV less than 3.5 equates to normal or less than 60% stenosis. Only one of the two criteria listed needs to be met for diagnosis. IMPRESSION: No evidence of renal artery stenosis. ACT 112: Negative or not required by law. Electronically signed by: Tutu Cartwright M.D. 11/30/2021 2:[address] 11/30/21 15:09 CT OF THE HEAD WITHOUT CONTRAST CLINICAL HISTORY: Worsening stroke symptoms COMPARISON STUDY: Head CT and CTA of the head November 27, 2021. MRI of the brain November 29, 2021. CT DOSE: 614.27 mGy.cm TECHNIQUE: Helical axial images of the head were obtained without IV contrast. A utomated exposure control was utilized for the study. A dose lowering technique was utilized adhering to the principles of ALARA. FINDINGS: No acute intracranial hemorrhage is present. Note is made of a 3 x 1.1 cm hypodensity within the left [place] radiata/external capsule consistent with acute infarct. Extensive may have slightly increased since MRI of November 29, 2021. There is minimal mass effect. No hemorrhagic conversion is noted. Basal cisterns are patent. There are no extra axial collections. IMPRESSION: 3 x 1.1 cm acute infarct within the left [place] radiata and external capsule. Minimal mass effect. No hemorrhagic conversion. Possible slight increase in extent since MRI of November 29, 2021. ACT 112: Negative or not required by law. Electronically signed by: Genaro Melendez M.D. 11/30/2021 4:07 PM Medications Administered Current Inpatient Medications Acetaminophen (Acetaminophen 325 Mg Tab) 650 mg PO Q4H PRN PRN Reason: pain/fever Stop: 12/28/21 01:48 Last Admin: 11/30/21 06:32 Dose: 650 mg Documented by: Amlodipine Besylate (Amlodipine Besylate 5 Mg Tab) [facility] [place]: 12/30/21 08:59 Last Admin: 12/01/21 09:24 Dose: 5 mg Documented by: Aspirin (Aspirin 81 Mg Ectab) [facility] [place]: 12/29/21 08:59 Last Admin: 12/01/21 09:24 Dose: 81 mg Documented by: Clopidogrel Bisulfate (Clopidogrel Bisulfate 75 Mg Tab) [facility] [place]: 12/31/21 11:14 Last Admin: 12/01/21 12:27 Dose: 75 mg Documented by: Dextrose (Dextrose 50% 50 Ml Syringe) 25 - 50 ml IV UD PRN; Protocol PRN Reason: Hypoglycemia Protocol Stop: 12/28/21 01:48 Enoxaparin Sodium (Enoxaparin Inj 40 Mg/0.4 Ml Syr) 40 mg SQ Q24H TIARRA Stop: 12/28/21 08:59 Last Admin: 12/01/21 09:35 Dose: 40 mg Documented by: Glucagon (Glucagon For Inj 1 Mg Vial) 1 mg SQ UD PRN; Protocol PRN Reason: Hypoglycemia Protocol Stop: 12/28/21 01:48 Glucose (Glucose 10 Tabs/Tube) 4 - 8 tabs PO UD PRN; Protocol PRN Reason: Hypoglycemia Protocol Stop: 12/28/21 01:48 Glucose (Glucose 40% Gel 15 Gm Tube) 15 - 30 gm PO UD PRN; Protocol PRN Reason: Hypoglycemia Protocol Stop: 12/28/21 01:48 Insulin Aspart (Insulin Aspart Per Unit) 0 units SC ACHS TIARRA Stop: 12/28/21 01:48 Last Admin: 12/01/21 12:50 Dose: 4 units Documented by: Losartan Potassium (Losartan Potassium 50 Mg Tab) 100 mg PO HS [facility] Stop: 12/29/21 20:59 Last Admin: 11/30/21 21:52 Dose: 100 mg Documented by: Melatonin (Melatonin 3 Mg Tab) 3 mg PO HS [facility] Stop: 12/28/21 20:59 Last Admin: 11/30/21 21:52 Dose: 3 mg Documented by: Metoprolol Tartrate (Metoprolol Tartrate 1 Mg/Ml Vial) 5 mg IV Q4 PRN PRN Reason: Hypertension Stop: 12/28/21 00:00 Last Admin: 11/30/21 06:33 Dose: 5 mg Documented by: Metoprolol Tartrate (Metoprolol Tartrate 25 Mg Tab) 25 mg PO BID [facility] Stop: 12/28/21 20:59 Last Admin: 12/01/21 09:25 Dose: 25 mg Documented by: Miscellaneous (Carbohydrates For Hypoglycemia ) 15 - 30 gm PO UD PRN PRN Reason: Hypoglycemia Protocol Stop: 12/28/21 01:48 Ondansetron HCl (Ondansetron Inj 2 Mg/Ml 2 Ml Vial) 4 mg IV Q4H PRN PRN Reason: Nausea Stop: 12/28/21 01:48 Last Admin: 11/29/21 07:18 Dose: 4 mg Documented by: Polyethylene Glycol (Polyethylene (Miralax) 17 Gm Pack) 17 gm PO DAILY PRN PRN Reason: Constipation Stop: 12/28/21 16:35 Polyethylene Glycol (Polyethylene (Miralax) 17 Gm Pack) 17 gm PO DAILY [facility] Stop: 12/30/21 10:14 Last Admin: 12/01/21 09:25 Dose: 17 gm Documented by: Rosuvastatin Calcium (Rosuvastatin Calcium 20 Mg Tab) 40 mg PO QAM [facility] Stop: 12/29/21 08:59 Last Admin: 12/01/21 09:23 Dose: 40 mg Documented by: Resident Activity Tracking Resident Involvement: Resident Care Provided Care Provided: Adult Hospital Medicine (1) Hyperglycemia due to type 2 diabetes mellitus 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
[2021-12-01 07:30] LABS: Calcium 8.6 mg/dl (8.5-10.1); Creatinine Clr Calc Pharmacy 49.5 ml/min; Est GFR (African American) 60.4 ml/min; Est GFR (Non-African American) 52.1 ml/min; Potassium 3.8 mmol/L (3.5-5.1)
[2021-12-01] MEDS: ROSUVASTATIN CALCIUM 20 MG TAB PO SCH (09:23)
[2021-12-01] MEDS: ASPIRIN 81 MG ECTAB PO SCH (09:24)
[2021-12-01] MEDS: amLODIPine BESYLATE 5 MG TAB PO SCH (09:24)
[2021-12-01] MEDS: POLYETHYLENE (MIRALAX) 17 GM PACK PO SCH (09:25)
[2021-12-01] MEDS: METOPROLOL TARTRATE 25 MG TAB PO SCH ×2 (09:25→20:55)
[2021-12-01] MEDS: INSULIN ASPART PER UNIT SC SCH ×4 (09:34→21:00)
[2021-12-01] MEDS: ENOXAPARIN INJ 40 MG/0.4 ML SYR SQ SCH (09:35)
--- NOTE | 2021-12-01 11:00 | Neurology Consultation ---
Date of Consultation December 01, 2021 Assessment & Plan (1) Acute CVA (cerebrovascular accident): (2) Right hemiplegia: (3) Dysarthria: (4) Vertebral artery stenosis: (5) Carotid stenosis: (6) Hypertension: (7) Diabetes: this patient has suffered an acute left basal ganglia region stroke with a an additional small left cerebellar hemispheric stroke. These are likely ischemic in nature. On neurologic examination he has a right hemiplegia with some decreased sensation to pin distally in the right lower extremity. He has dysarthria without aphasia. Given this distribution of his strokes I would suspect pure motor involvement. Patient has multifocal vertebral artery stenoses bilaterally with some mild to moderate stenoses of the internal carotid arteries at various portions. Risk factors for stroke include hypertension and diabetes as well as dyslipidemia. Recommendations: 1. Given the nature of his vascular anomalies I would suggest clopidogrel 75 milligrams daily +80 1 milligram aspirin tablet daily for 3 weeks and then stay on clopidogrel alone. 2. control blood pressure as you are doing, aiming for a mean arterial pressure of 95-100. 3. control glucose as you are doing, aiming to get the hemoglobin A1c closer to 70. 4. The patient would be a high dose statin candidate. 5. Physical, occupational, and speech therapy consults. Increase activity as able. 6. the patient appears somewhat depressed. Consider initiating fluoxetine for this. 7. I will follow. Overall, I spent a total of 60 minutes with this case including review of records, review of MRI films, direct evaluation the patient at bedside, and discussion of the case with the patient at bedside, and Dr. Jovel including differential diagnosis and treatment options. History of Present Illness Reason for Consultation: patient is a 71-year-old, who I was asked to see at the request of Dr. Ellis Requesting Physician: Dr Ellis Attending Physician: Altaf Jovel, History of Present Illness patient tells me he has a history of hypertension but he really has not been to a primary care physician for many years. He was on no medication prior to admission. His history states that he had a 1 week history of generalized weakness, legs greater than arms with fatigue and some low back pain. He came to the emergency room on November 27 for these issues. in the emergency room blood pressure was 208/99 he was afebrile and pulse was in the 90s. O2 saturation was 98 percent. His exam was labeled nonfocal with some generalized sense of weakness particularly the legs at 4+/ 5. CBC was unremarkable. Chem profile revealed a glucose of 285. Hemoglobin A1c was elevated at 9.9. TSH was 1.7 and CK 95. Urinalysis was unremarkable. Total cholesterol was 220. In the emergency room, chest x-ray was unremarkable. CT of the abdomen pelvis was largely unremarkable. CT angiography of the head showed some narrowing in the distal ICAs at the cavernous portions bilaterally. CT angiography of the neck revealed 50 percent stenosis of the right ICA in the petrous portion. There were multifocal high-grade stenoses of the vertebral arteries bilaterally. A CT scan of the head November 30 showed left de [place] santos radiata Area hypodensity, consistent with stroke. MRI of the brain revealed a 2.5 centimeter linear left de [place] s[place] radiata area acute stroke as well as a high left cerebellar hemispheric acute stroke. There were multiple old lacunar infarcts and he had mild generalized atrophy. I reviewed these films. For the last 2 days the patient has had right hemiplegia and slurred speech. He has no pain but does have some numbness in the right arm and leg. He is little trouble swallowing but his vision is unremarkable. He has had urinary incontinence requiring a Brown. He is not walking well. Allergies Allergy/AdvReac Type Severity Reaction Status Date / Time No Known Allergies Allergy Mild Verified 11/27/21 17:55 Home Medications Medication Instructions Recorded Confirmed Type acetaminophen-caffeine 500 mg-65 1 tab PO Q12H PRN 11/27/21 11/27/21 History mg tablet Patient History Medical History Diabetes Hypertension Kidney stone Surgical History Hx of LASIK Family History Mother , in her 70s of lung cancer Lung cancer Father , age 75 of lung cancer Lung cancer Other No pertinent family history Social History Smoking Status: Never smoker Hx Alcohol Use: No Hx Substance Use: No Preferred Language: Czech Communication Ability: Effective 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 Required: No Beliefs That Will Affect Care: None Current Living Situation: Alone current occupational status: retired 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 Other Information That Helps Us Care for You: Yes Feels Safe at Home: Yes Safety Concerns: Feels Safe At This Time Assistive Devices: None Review of Systems Constitutional: + fatigue and + weakness; no fever Eyes: no diplopia, no eye pain and no worsening vision Ear, Nose, Mouth, Throat: no ear pain, no tinnitus, no hearing loss, no dizziness, no snoring, no hoarseness and no dysphagia Respiratory: no cough and no dyspnea Cardiovascular: no chest pain, no palpitations and no lightheadedness Gastrointestinal: no abdominal pain, no nausea and no vomiting Musculoskeletal: no back pain, no neck pain, no radicular pain, no joint pain and no myalgia Integumentary: no rash and no lesions Neurologic: + localized weakness, + numbness and + abnormal speech; no gait abnormality, no generalized weakness, no tingling, no tremor(s), no abnormal movements, no headache(s), no confusion and no memory loss Psychiatric: no depression, no irritability, no anxiety, no difficulty co ncentrating, no confusion and no hallucinations Endocrine: no fatigue and no flushing Hematologic / Lymphatic: no easy bleeding and no easy bruising Allergy / Immunological: no urticaria and no problem reported Exam (Neuro) Physical Exam: The patient is right-handed. The patient is awake, alert, and attentive. Speech is dysarthric without a facial. The patient can name objects, repeat phrases, and has normal spontaneous speech. Mentation and thought processes are intact, with orientation to person, place and time, and normal fund of knowledge. Attention and concentration are normal. Mood and affect are normal and appropriate. General appearance and grooming are normal. Short and long-term memory are intact. Pupils are 3 mm bilaterally and reactive to light. Extraocular eye muscles are intact without nystagmus. Visual acuity and visual de la rosa seem normal grossly to confrontation. There are no deficits to sensation in the face in all 3 distributions of the fifth cranial nerve bilaterally. Corneal reflexes are positive bilaterally. Facial strength and symmetry was normal bilaterally. Hearing seems normal bilaterally. Palate moves well without asymmetry. There is normal sternocleidomastoid strength bilaterally. Tongue is midline with good strength bilaterally. Neck has a full range of motion with some discomfort. There are no cervical bruits bilaterally. There are no cranial or ocular bruits. Heart is without murmur. There is a regular rhythm and rate. Cervical, thoracic, and lumbar spine are nontender to palpation. Gait not tested but stance sitting up in the chair he leaned to the right With outstretched arm on the left, there is no drift. There are no resting, postural, or action tremors in the left upper extremity. There is no ataxia with finger to nose testing in the left upper extremity. There is good facility in the left hand. No other abnormal involuntary movements are noted. there is no tremor in the right hand at rest Motor strength is 5/5 diffusely in the left upper extremity including deltoids, biceps, triceps, brachioradialis, wrist flexors and extensors, calcine furnace loader, and intrinsic hand muscles. Motor strength is 5/5 diffusely in the left lower extremity including hip flexors, quadriceps, hamstrings, gastrocnemius, tibialis anterior, tibialis posterior, and Peroneii muscles. Toe extensors are normal and there is good bulk in the extensor digitorum brevis muscles bilaterally. the right arm and leg were flaccid with no movement proximally or distally. Shoulder shrug was weak on the right. There is decreased tone in the right arm and leg compared to the left which are normal. Sensory examination reveals some nonspecific decreased sensation to pin and touch distally in the right lower extremity but the right upper extremity and the left side are spared Reflexes are 1/4 in the left biceps, triceps, brachioradialis, quadriceps, and Achilles tendons. these reflexes on the right were 0/4. There is no clonus bilaterally. Toes are downgoing with plantar stimulation On the left and upgoing on plantar stimulation on the right. Peripheral pulses are present and of normal quality distally in all 4 limbs. There is no peripheral edema noted in the limbs. Results & Data ([facility]) Vital Signs (Past 12 Hours) Vital Signs Temp Pulse Pulse Resp BP Pulse Ox 12/01/21 07:42 68 12/01/21 07:36 36.4 C L 73 16 151/80 H 98 12/01/21 03:43 36.5 C 69 16 162/79 H 97 11/30/21 23:05 36.9 C 73 20 170/88 H 97 PG Care Time/CCT Total # of Minutes Spent Total Time Spent with Patient: Total time spent is greater than 50% in coordination of care (as documented) at patient's floor/unit and/or counseling patient: Coding Level of Care Code 54261 Initial Inpt Care Lvl 3 Diagnoses Acute CVA (cerebrovascular accident) I63.9 Right hemiplegia G81.91 Dysarthria R47.1 Vertebral artery stenosis I65.09 Carotid stenosis I65.29 Hypertension I10 Diabetes E11.9 Time Spent (min) 60
[2021-12-01] MEDS: CLOPIDOGREL BISULFATE 75 MG TAB PO SCH (12:27)
--- NOTE | 2021-12-01 16:43 | Billing Data ---
Date of Service December 01, 2021 Coding Level of Care Code 06521 Subseq Hosp Care Lvl 3
[2021-12-01] MEDS: LOSARTAN POTASSIUM 50 MG TAB PO SCH (20:55)
[2021-12-01] MEDS: MELATONIN 3 MG TAB PO SCH (21:00)
[2021-12-02 06:39] LABS: BUN Creatinine Ratio 24.6 (10-20); Calcium 8.7 mg/dl (8.5-10.1); Est GFR (African American) 65.6 ml/min; Est GFR (Non-African American) 56.6 ml/min; Potassium 3.7 mmol/L (3.5-5.1)
--- NOTE | 2021-12-02 06:49 | Hospitalist Progress Note ---
Date of Service December 02, 2021 Assessment & Plan (1) Hypertensive urgency: Plan: 71yo Male PMH Lasix surgery no PCP 20 years presents with 1 week of weakness in lower extremities. (1) Acute ischemic stroke: - Neck CTA 11/27= multiple high grade stenosis noted on b/l vertebral artery - Head CTA 11/27= no intracranial pathology, mild atherosclerotic disease - Brain MRI w/o contrast 11/29 = 1. 2.5 cm linear focus of restricted diffusion involving the left de [place] santos radiata/external capsule distribution is compatible with an acute infarct. 2. Subcentimeter focus of restricted diffusion involving the left cerebellar hemisphere is suggestive of an acute versus subacute infarct. 3. Chronic lacunar infarcts of the cerebellum, brainstem and basal ganglia. Involutional changes with chronic microvascular ischemic disease. - echo unremarkable - CT head 11/30 no contrast given worsening symptoms 3 x 1.1 cm acute infarct within the left de [place] santos radiata and external capsule. Minimal mass effect. No hemorrhagic conversion. Possible slight increase in extent since MRI of November 29, 2021. - TSH normal. Folate B12 wnl. No smoking alcohol - mildly elevated ESR 40 - SPEP/UPEP pending - patient understands he needs better control of HTN DM to prevent stroke recurrence - neurology consult placed, recommend starting plavix 75mg daily with ASA 81mg for 3 weeks, after which plavix alone. Consider adding fluoxetine for depressed mood. Continue BP glucose control, PT/OT/speech therapy - started aspirin 81mg plavix 75mg daily, rosuvastatin 40mg daily (2) Diabetes: - A1c 9.9, newly diagnosed diabetic, patient made aware he is diabetic - Sliding scale - glucose well controlled in hospital with minimal insulin on carb consistent diet, patient may greatly improve glycemic control and diet change - DM educator consult placed: 1.) Insulin adjustments, as needed, to help maintain BG values in a safe range. 2.) Recommend discharge on Metformin ER 500mg BID with Jardiance or Farxiga give recent stroke PRESCRIPTIONS NEEDED: 1.) OneTouch Verio Test Strips to check 1x/day. 2.) OneTouch Delica Lancets 33 gauge to check 1x/day. (3) Hypertension: - Home BP 180-190 range. In the ER, BP consistently >200/110 - Start losartan 100 mg HS, Metoprolol Tartrate 25mg BID PO, Amlodipine 5mg daily if patient's BP continues to stay around systolic 160, will consider decreasing metoprolol to reduce medication complexity - Metoprolol IV 5mg PRN for SBP > 180 or DBP 100. - renal artery duplex negative for stenosis - goal to maintain BP systolic 160-180 while in hospital - BP below sys 180 starting 12/01 (4) Atherosclerosis with HLD -Total cholesterol 220 -started rosuvastatin 40mg daily -started on ASA 81mg Plavix 75mg daily, will transition to plavix alone in 3 weeks (5) Weakness - RUE and RLE weakness have progressed to immobile against gravity since admission - PT/OT ordered, recommend inpatient rehab - speech therapy ordered, noted aphasia and dysarthria, recommend speech therapy follow in rehab Patient heaviness in throat and some choking with swallowing may indicate dysphagia, 11/30 bedside swallow study wnl, to be repeated 12/02 if indicated, may adjust diet according to speech recommendations - Family updated as of 12/01 FENa: card consistent Code Status: Full DVT PPX: Lovenox PT/OT: inpatient rehab. Speech therapy: aphasia with dysarthria, continue speech therapy in rehab Case Management: looking into [facility] Dispo: med/tele Romina Ellis Do PGY 2, FCM (2) Hyperglycemia due to type 2 diabetes mellitus: (3) Diabetes: (4) Weakness: (5) Ischemic stroke: (6) Hypertension: (7) Atherosclerosis of vertebral artery: (8) Vertebral artery stenosis: Admission and Anticipated Discharge Date Admission Date: November 29, 2021 Supervising Physician Co-Signing Physician Notes I personally examined the patient and verified all rosenthal points of history and exam, discussed case, and agree with decision making with Dr Ellis No new complaints. Frustrated about weakness. Pending rehab. Vitals noted, awake and alert pleasant no distress but very fatigued. HEENT normocephalic atraumatic mucous membranes moist. Breathing unlabored no accessory muscle use good effort. Skin shows no rashes no pallor or icterus. Ongoing right-sided weakness essentially the same as yesterday. Somewhat slurred speech. Strokehas multiple strokes actually. Right-sided weakness appears to be related to the anterior circulation stroke. Given that he does not have significant carotid artery disease on that side, and thus far has not shown evidence of a central/cardioembolic source, strongly suspect atherosclerotic (from hypertension diabetes hyperlipidemia and age); weakness/dizziness also likely relates to cerebellar strokesof which it could easily be atherosclerotic, but also does have the prospect of atheroembolic from large vessel given his vertebral artery stenosis. Again risk factor reduction secondary risk reduction, PT/OT, supportive care, time. Certainly with multiple acute infarcts in different vascular distributions central embolic needs to be consideredbut I really suspect he is more atherosclerotic and atheroembolic given the clearly evident "smoking gun" risk factors already identifiedecho is reassuring/he has not shown atrial fibrillation on monitorbut for completeness after discharge would set him up with an event monitor. Follow and manage blood pressure cautiously to allow for autoregulation. Sugars have actually been very easy to controldiscussed with patient that this has heavy implications that lifestyle will predominantly be what is needed to control his sugars at home. PT/OT eval and treat, anticipate benefit from rehabasking case management to set referrals in that direction. His worsening hopefully is due to sobia-infarct edema than purely from ischemia, but continue to follow closely. Anticipate rehab Saturday New onset type 2 diabetesongoing education, acutely insulin management, chronically likely lifestyle change will be the mainstay. Predominantly has been very easy to control, sugars have gotten a little bit higher over the last day or sohas purely been on bolus insulin, will add a little bit of basal and continue to follow Uncontrolled hypertensionat goal range mostly now. Continue current medications and follow closely. Hyperlipidemiacontinue high intensity statin Weaknesssuspect dehydrationin addition to stroke Bilateral vertebral stenosissecondary risk reduction, outpatient follow-up with vascular otherwise as above Otherwise as above work towards rehabstable for rehab transfer if available Subjective Patient seen at bedside, calm comfortable cooperative. He wishes to sit higher up in bed. States speech is slightly worse than yesterday, feels frustrated communicating, states people don't listen to him. He describes some drolling out of the corner of his right mouth, some numbness/tingling and food getting stuck in bilateral mouth. He denies any choking on solid food or difficulty breathing. Still describes some coughing with fluids. Patient states his dizziness and headache have improved today, very mild nausea, tolerated breakfast well. Patient denies any change in status of his RUE and RLE, cannot feel sensation below right elbow. No change in LUE and LLE strength or sensation. Discussed with patient we will get another swallow evaluation to check if he needs diet adjustment. Patient understands he should continue speaking and working with therapy to regain function, patient states he can do this. Review of Systems Review of Systems: Mild nausea Negative fever chills Negative headache dizziness Negative chest pain palpitations SOB Negative vomitting diarrhea constipation Negative numbness tingling rash swelling Physical Exam Constitutional: WD/WN, vitals as above Eyes: PERRL, conjunctivae normal, anicteric sclerae ENMT: external ear and nose normal, oropharynx normal Mouth: + dry oral mucous membranes Neck: trachea midline, no thyromegaly Respiratory: normal respiratory effort, lungs clear to auscultation Cardiovascular: RRR, no murmur, no edema Chest (Breasts): Chest: normal inspection of chest Gastrointestinal (Abdomen): normal bowel sounds, soft, nontender, no hepatosplenomegaly Skin: no rashes, warm and dry Neurologic: CN's II-XI intact bilaterally (reduced elevated on right shoulder) Speech / Cognition: + expressive aphasia Unable to move right fingers or hand. Patient can extend right arm if positioned against gravity strength 2/5, cannot flex arm. Strength of left upper extremity intact 5/5 Unable to move right hip or knee, can plantarflex if positioned against gravity strength 2/5, cannot plantarflex, cannot move toes. Strength of left lower extremity intact 5/5 Patient describes lack of sensation to right arm below elbow, no loss of sensation in other extremities Psychiatric: Mood: + depressed mood Results & Data Results & Data ([facility]) Vital Signs (Past 12 Hours) Vital Signs Temp Pulse Pulse Resp BP BP Pulse Ox 12/02/21 03:12 36.7 C 75 18 170/80 H 96 12/01/21 23:50 36.9 C 64 16 142/72 H 96 12/01/21 22:31 37.1 C 72 18 135/68 97 12/01/21 22:16 71 12/01/21 19:27 37.0 C 81 20 143/67 H 97 Laboratory Results 12/02/21 12/02/21 12/02/21 Range/Units 11:25 07:57 05:16 Sodium 137 (136-145) mmol/L Potassium 3.7 (3.5-5.1) mmol/L Chloride 106 (98-107) mmol/L Carbon Dioxide 24 (21-32) mmol/L Anion Gap 7 (3-11) BUN 31 H (6-23) mg/dl Creatinine 1.26 (0.6-1.4) mg/dl Est Cr Clr Drug Dosing 53.0 ml/min Est GFR ( Amer) 65.6 ml/min Est GFR (Non-Af Amer) 56.6 ml/min BUN/Creatinine Ratio 24.6 H (10-20) Glucose 175 H (70-99(Fasting)) mg/dl POC Glucose 228 H 158 H (70-99) mg/dl Calcium 8.7 (8.5-10.1) mg/dl 12/01/21 12/01/21 12/01/21 Range/Units 20:46 16:44 11:26 Sodium (136-145) mmol/L Potassium (3.5-5.1) mmol/L Chloride (98-107) mmol/L Carbon Dioxide (21-32) mmol/L Anion Gap (3-11) BUN (6-23) mg/dl Creatinine (0.6-1.4) mg/dl Est Cr Clr Drug Dosing ml/min Est GFR ( Amer) ml/min Est GFR (Non-Af Amer) ml/min BUN/Creatinine Ratio (10-20) Glucose (70-99(Fasting)) mg/dl POC Glucose 200 H 185 H 231 H (70-99) mg/dl Calcium (8.5-10.1) mg/dl Medications Administered Current Inpatient Medications Acetaminophen (Acetaminophen 325 Mg Tab) 650 mg PO Q4H PRN PRN Reason: pain/fever Stop: 12/28/21 01:48 Last Admin: 11/30/21 06:32 Dose: 650 mg Documented by: Amlodipine Besylate (Amlodipine Besylate 5 Mg Tab) 5 mg PO [facility] Stop: 12/30/21 08:59 Last Admin: 12/02/21 09:03 Dose: 5 mg Documented by: Aspirin (Aspirin 81 Mg Ectab) 81 mg PO [facility] Stop: 12/29/21 08:59 Last Admin: 12/02/21 09:04 Dose: 81 mg Documented by: Clopidogrel Bisulfate (Clopidogrel Bisulfate 75 Mg Tab) 75 mg PO [facility] Stop: 12/31/21 11:14 Last Admin: 12/02/21 09:03 Dose: 75 mg Documented by: Dextrose (Dextrose 50% 50 Ml Syringe) 25 - 50 ml IV UD PRN; Protocol PRN Reason: Hypoglycemia Protocol Stop: 12/28/21 01:48 Enoxaparin Sodium (Enoxaparin Inj 40 Mg/0.4 Ml Syr) 40 mg SQ Q24H TIARRA Stop: 12/28/21 08:59 Last Admin: 12/02/21 09:04 Dose: 40 mg Documented by: Glucagon (Glucagon For Inj 1 Mg Vial) 1 mg SQ UD PRN; Protocol PRN Reason: Hypoglycemia Protocol Stop: 12/28/21 01:48 Glucose (Glucose 10 Tabs/Tube) 4 - 8 tabs PO UD PRN; Protocol PRN Reason: Hypoglycemia Protocol Stop: 12/28/21 01:48 Glucose (Glucose 40% Gel 15 Gm Tube) 15 - 30 gm PO UD PRN; Protocol PRN Reason: Hypoglycemia Protocol Stop: 12/28/21 01:48 Insulin Aspart (Insulin Aspart Per Unit) 0 units SC ACHS [facility] Stop: 12/28/21 01:48 Last Admin: 12/02/21 09:04 Dose: 3 units Documented by: Losartan Potassium (Losartan Potassium 50 Mg Tab) 100 mg PO HS [facility] Stop: 12/29/21 20:59 Last Admin: 12/01/21 20:55 Dose: 100 mg Documented by: Meclizine HCl (Meclizine 12.5 Mg Tab) 12.5 mg PO Q12 PRN PRN Reason: Dizziness or Vertigo Stop: 01/01/22 07:05 Melatonin (Melatonin 3 Mg Tab) 3 mg PO HS [facility] Stop: 12/28/21 20:59 Last Admin: 12/01/21 21:00 Dose: 3 mg Documented by: Metoprolol Tartrate (Metoprolol Tartrate 1 Mg/Ml Vial) 5 mg IV Q4 PRN PRN Reason: Hypertension Stop: 12/28/21 00:00 Last Admin: 11/30/21 06:33 Dose: 5 mg Documented by: Metoprolol Tartrate (Metoprolol Tartrate 25 Mg Tab) 25 mg PO BID [facility] Stop: 12/28/21 20:59 Last Admin: 12/02/21 09:03 Dose: 25 mg Documented by: Miscellaneous (Carbohydrates For Hypoglycemia ) 15 - 30 gm PO UD PRN PRN Reason: Hypoglycemia Protocol Stop: 12/28/21 01:48 Ondansetron HCl (Ondansetron Inj 2 Mg/Ml 2 Ml Vial) 4 mg IV Q4H PRN PRN Reason: Nausea Stop: 12/28/21 01:48 Last Admin: 11/29/21 07:18 Dose: 4 mg Documented by: Polyethylene Glycol (Polyethylene (Miralax) 17 Gm Pack) 17 gm PO DAILY PRN PRN Reason: Constipation Stop: 12/28/21 16:35 Polyethylene Glycol (Polyethylene (Miralax) 17 Gm Pack) 17 gm PO DAILY [facility] Stop: 12/30/21 10:14 Last Admin: 12/02/21 09:04 Dose: 17 gm Documented by: Rosuvastatin Calcium (Rosuvastatin Calcium 20 Mg Tab) 40 mg PO QAM [facility] Stop: 12/29/21 08:59 Last Admin: 12/02/21 09:03 Dose: 40 mg Documented by: Resident Activity Tracking Resident Involvement: Resident Care Provided Care Provided: Adult Hospital Medicine (1) Hyperglycemia due to type 2 diabetes mellitus 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
[2021-12-02] MEDS ORDERED: MECLIZINE 12.5 MG TAB PO PRN (07:06)
[2021-12-02] MEDS: amLODIPine BESYLATE 5 MG TAB PO SCH (09:03)
[2021-12-02] MEDS: CLOPIDOGREL BISULFATE 75 MG TAB PO SCH (09:03)
[2021-12-02] MEDS: ROSUVASTATIN CALCIUM 20 MG TAB PO SCH (09:03)
[2021-12-02] MEDS: METOPROLOL TARTRATE 25 MG TAB PO SCH ×2 (09:03→20:13)
[2021-12-02] MEDS: ENOXAPARIN INJ 40 MG/0.4 ML SYR SQ SCH (09:04)
[2021-12-02] MEDS: POLYETHYLENE (MIRALAX) 17 GM PACK PO SCH (09:04)
[2021-12-02] MEDS: ASPIRIN 81 MG ECTAB PO SCH (09:04)
[2021-12-02] MEDS: INSULIN ASPART PER UNIT SC SCH ×4 (09:04→21:13)
--- NOTE | 2021-12-02 15:30 | Billing Data ---
Date of Service December 02, 2021 Coding Level of Care Code 93574 Subseq Hosp Care Lvl 3
[2021-12-02] MEDS: LOSARTAN POTASSIUM 50 MG TAB PO SCH (20:13)
[2021-12-02] MEDS: MELATONIN 3 MG TAB PO SCH (20:16)
--- NOTE | 2021-12-03 07:03 | Hospitalist Progress Note ---
Date of Service December 03, 2021 Assessment & Plan (1) Hypertensive urgency: Plan: 71yo Male PMH Lasix surgery no PCP 20 years presents with 1 week of weakness in lower extremities. (1) Acute ischemic stroke: - Neck CTA 11/27= multiple high grade stenosis noted on b/l vertebral artery - Head CTA 11/27= no intracranial pathology, mild atherosclerotic disease - Brain MRI w/o contrast 11/29 = 1. 2.5 cm linear focus of restricted diffusion involving the left de [place] santos radiata/external capsule distribution is compatible with an acute infarct. 2. Subcentimeter focus of restricted diffusion involving the left cerebellar hemisphere is suggestive of an acute versus subacute infarct. 3. Chronic lacunar infarcts of the cerebellum, brainstem and basal ganglia. Involutional changes with chronic microvascular ischemic disease. - echo unremarkable - CT head 11/30 no contrast given worsening symptoms 3 x 1.1 cm acute infarct within the left de [place] santos radiata and external capsule. Minimal mass effect. No hemorrhagic conversion. Possible slight increase in extent since MRI of November 29, 2021. - TSH normal. Folate B12 wnl. No smoking alcohol - mildly elevated ESR 40 - SPEP/UPEP pending - patient understands he needs better control of HTN DM to prevent stroke recurrence - neurology consult placed, recommend starting plavix 75mg daily with ASA 81mg for 3 weeks, after which plavix alone. Consider adding fluoxetine for depressed mood. Continue BP glucose control, PT/OT/speech therapy - started aspirin 81mg plavix 75mg daily, rosuvastatin 40mg daily (2) Diabetes: - A1c 9.9, newly diagnosed diabetic, patient made aware he is diabetic - Sliding scale - glucose well controlled in hospital with minimal insulin on carb consistent diet, patient may greatly improve glycemic control and diet change - DM educator consult placed: 1.) Insulin adjustments, as needed, to help maintain BG values in a safe range. 2.) Recommend discharge on Metformin ER 500mg BID with Jardiance or Farxiga give recent stroke PRESCRIPTIONS NEEDED: 1.) OneTouch Verio Test Strips to check 1x/day. 2.) OneTouch Delica Lancets 33 gauge to check 1x/day. (3) Hypertension: - Home BP 180-190 range. In the ER, BP consistently >200/110 - Start losartan 100 mg HS, Metoprolol Tartrate 25mg BID PO, Amlodipine 5mg daily if patient's BP continues to stay around systolic 160, will consider decreasing metoprolol to reduce medication complexity - Metoprolol IV 5mg PRN for SBP > 180 or DBP 100. - renal artery duplex negative for stenosis - goal to maintain BP systolic 160-180 while in hospital - BP below sys 180 starting 12/01 (4) Atherosclerosis with HLD -Total cholesterol 220 -started rosuvastatin 40mg daily -started on ASA 81mg Plavix 75mg daily, will transition to plavix alone in 3 weeks (5) Weakness - RUE and RLE weakness have progressed to immobile against gravity since admission - PT/OT ordered, recommend inpatient rehab - speech therapy ordered, noted aphasia and dysarthria, recommend speech therapy follow in rehab Patient heaviness in throat and some choking with swallowing may indicate dysphagia, confirmed by speech therapy, diet changed to minced/moist. Barium swallow study on saturday. -continue oral care, aspiration precautions - Family updated as of 12/01 ()Muscle Spasm -located on right thigh -Patient understands to continue working with PT -ordered voltaren gel QID -will consider OMT if this continues ()Blurry Vision -likely 2/2 to stroke -PERRLA EOMI -continue to monitor FENa: card consistent, minced and moist Code Status: Full DVT PPX: Lovenox PT/OT: inpatient rehab. Speech therapy: aphasia with dysarthria, continue speech therapy in rehab Case Management: looking into [facility] Dispo: med/tele Romina Ellis Do PGY 2, FCM (2) Hyperglycemia due to type 2 diabetes mellitus: (3) Diabetes: (4) Weakness: (5) Ischemic stroke: (6) Hypertension: (7) Atherosclerosis of vertebral artery: (8) Vertebral artery stenosis: Admission and Anticipated Discharge Date Admission Date: November 29, 2021 Supervising Physician Co-Signing Physician Notes I personally examined the patient and verified all rosenthal points of history and exam, discussed case, and agree with decision making with Dr Ellis Eating ice cream at the end of his lunch. Only using his left hand but doing so with some proficiency. Not really moving the right side. Just waiting on rehab. Vitals noted, awake and alert pleasant no distress but very fatigued. HEENT normocephalic atraumatic mucous membranes moist. Breathing unlabored no accessory muscle use good effort. Skin shows no rashes no pallor or icterus. Ongoing right-sided weakness appears to be essentially the same as yesterday. Somewhat slurred speech that is pretty stable. No noting of cough or throat clearing while he is eating Strokehas multiple strokes actually. Right-sided weakness appears to be related to the anterior circulation stroke. Given that he does not have significant carotid artery disease on that side, and thus far has not shown evidence of a central/cardioembolic source, strongly suspect atherosclerotic (from hypertension diabetes hyperlipidemia and age); weakness/dizziness also likely relates to cerebellar strokesof which it could easily be at herosclerotic, but also does have the prospect of atheroembolic from large vessel given his vertebral artery stenosis. Again risk factor reduction secondary risk reduction, PT/OT, supportive care, time. Certainly with multiple acute infarcts in different vascular distributions central embolic needs to be consideredbut I really suspect he is more atherosclerotic and atheroembolic given the clearly evident "smoking gun" risk factors already identifiedecho is reassuring/he has not shown atrial fibrillation on monitorbut for completeness after discharge would set him up with an event monitor. Follow and manage blood pressure cautiously to allow for autoregulation. Sugars have actually been very easy to controldiscussed with patient that this has heavy implications that lifestyle will predominantly be what is needed to control his sugars at home. PT/OT eval and treat, anticipate benefit from rehabasking case management to set referrals in that direction. His worsening hopefully is due to sobia-infarct edema than purely from ischemia, but continue to follow closely. Anticipate rehab Saturday pending approvals New onset type 2 diabetesongoing education, acutely insulin management, chronically likely lifestyle change will be the mainstay. Predominantly has been very easy to control, sugars have gotten a little bit higher over the last day or sonow adding 5 of Lantus at bedtime, to transition to a bit more of a basal bolus regimen. That said, with prolonged time eating less sugars (he drank juice and soda on a regular basis at home, and had ice cream more or less nightly), I suspect his insulin resistance will wane over time to where his management will be even easier with lifestyle alone Uncontrolled hypertensionat goal range for immediate poststroke mostly now. Continue current medications and follow closely. Hyperlipidemiacontinue high intensity statin, seems to be tolerating well Weaknesssuspect dehydrationin addition to stroke, PT OT eval and treat Bilateral vertebral stenosissecondary risk reduction, outpatient follow-up with vascular otherwise as above Otherwise as above work towards rehabstable for rehab transfer if available Subjective Patient seen at bedside calm comfortable cooperative. He states his speech is slightly worse today, states in addition to difficulty word finding he has difficulty maneuvering his tongue. He states he still had numbness tingling in b/l mouth with food getting stuck in both cheeks. He denies any changes on his RUE and RLE, no change in strength LUE and LLE. Patient complains of occasional spasms in his right thigh. He also describes some blurriness in vision. Patient understands he needs to continue with PT OT to improve his condition. Per nursing he continues to have difficulty with thun liquids but doing fine with apple sauce. Barium swallow study pending tomorrow. Review of Systems Review of Systems: Mild nausea Negative fever chills Negative headache dizziness Negative chest pain palpitations SOB Negative vomitting diarrhea constipation Negative numbness tingling rash swelling Physical Exam Constitutional: WD/WN, vitals as above Eyes: PERRL, conjunctivae normal, anicteric sclerae ENMT: external ear and nose normal, oropharynx normal Mouth: + dry oral mucous membranes Neck: trachea midline, no thyromegaly Respiratory: normal respiratory effort, lungs clear to auscultation Cardiovascular: RRR, no murmur, no edema Chest (Breasts): Chest: normal inspection of chest Gastrointestinal (Abdomen): normal bowel sounds, soft, nontender, no hepatosplenomegaly Skin: no rashes, warm and dry Neurologic: Speech / Cognition: + expressive aphasia Motor/Sensory: no sensory deficit Cranial Nerves: PERRL, normal accommodation, EOM intact bilaterally, normal hearing, able to rotate head bilaterally, no nystagmus and symmetric palate elevation; + abnormal facial strength (reduced smile on right), + tongue not midline (tongue deviated right) and + not able to elevate shoulders (reduced right shoulder elevation) Unable to move right fingers or hand. Patient can extend right arm if positioned against gravity strength 2/5, cannot flex arm. Strength of left upper extremity intact 5/5 Unable to move right hip or knee, can plantarflex if positioned against gravity strength 2/5, cannot plantarflex, cannot move toes. Strength of left lower extremity intact 5/5 Psychiatric: Mood: + depressed mood Results & Data Results & Data ([facility]) Vital Signs (Past 12 Hours) Vital Signs Temp Pulse Pulse Pulse Resp BP BP 12/03/21 03:58 37.0 C 72 18 173/80 H 12/03/21 00:00 36.9 C 69 20 142/79 H 12/02/21 22:16 69 12/02/21 20:12 66 169/77 H 12/02/21 19:40 36.9 C 76 20 169/77 H Pulse Ox 12/03/21 03:58 97 12/03/21 00:00 95 12/02/21 22:16 12/02/21 20:12 12/02/21 19:40 95 Diagnostic Findings Laboratory Results WBC 8.19 K/uL (4.8-10.8) 11/29/21 06:09 RBC 4.49 M/uL (4.7-6.1) L 11/29/21 06:09 Hgb 12.3 g/dL (14.0-18.0) L 11/29/21 06:09 Hct 36.8 % (42-52) L 11/29/21 06:09 MCV 82.0 fL (80-100) 11/29/21 06:09 MCH 27.4 pg (25-34) 11/29/21 06:09 MCHC 33.4 g/dL (32-36) 11/29/21 06:09 RDW Std Deviation 39.7 fL (36.4-46.3) 11/29/21 06:09 RDW Coeff of Cassandra 13.3 % (11.5-14.5) 11/29/21 06:09 Plt Count 212 K/uL (130-400) 11/29/21 06:09 MPV 9.7 fL (7.4-10.4) 11/29/21 06:09 Immature Gran % (Auto) 0.2 % 11/27/21 14:15 Neut % (Auto) 72.1 % 11/27/21 14:15 Lymph % (Auto) 19.8 % 11/27/21 14:15 Davidson % (Auto) 4.6 % 11/27/21 14:15 Eos % (Auto) 2.9 % 11/27/21 14:15 Baso % (Auto) 0.4 % 11/27/21 14:15 Neut # (Auto) 7.07 K/uL (1.4-6.5) H 11/27/21 14:15 Lymph # (Auto) 1.94 K/uL (1.2-3.4) 11/27/21 14:15 Davidson # (Auto) 0.45 K/uL (0.11-0.59) 11/27/21 14:15 Eos # (Auto) 0.28 K/uL (0-0.5) 11/27/21 14:15 Baso # (Auto) 0.04 K/uL (0-0.2) 11/27/21 14:15 Immature Gran # (Auto) 0.02 K/uL (0.00-0.02) 11/27/21 14:15 ESR 40 mm/hr (0-20) H 11/27/21 14:23 Sodium 137 mmol/L (136-145) 12/02/21 05:16 Potassium 3.7 mmol/L (3.5-5.1) 12/02/21 05:16 Chloride 106 mmol/L (98-107) 12/02/21 05:16 Carbon Dioxide 24 mmol/L (21-32) 12/02/21 05:16 Anion Gap 7 (3-11) 12/02/21 05:16 BUN 31 mg/dl (6-23) H 12/02/21 05:16 Creatinine 1.26 mg/dl (0.6-1.4) 12/02/21 05:16 Est Cr Clr Drug Dosing 53.0 ml/min 12/02/21 05:16 Est GFR ( Amer) 65.6 ml/min 12/02/21 05:16 Est GFR (Non-Af Amer) 56.6 ml/min 12/02/21 05:16 BUN/Creatinine Ratio 24.6 (10-20) H 12/02/21 05:16 Glucose 175 mg/dl (70-99(Fasting)) H 12/02/21 05:16 POC Glucose 138 mg/dl (70-99) H 12/03/21 07:26 Estimat Average Glucose 237 mg/dl 11/28/21 05:42 Hemoglobin A1c 9.9 % (4.5-5.6) H 11/28/21 05:42 Calcium 8.7 mg/dl (8.5-10.1) 12/02/21 05:16 Phosphorus 3.2 mg/dl (2.5-4.9) 11/27/21 14:15 Magnesium 2.0 mg/dl (1.7-2.4) 11/28/21 05:42 Total Bilirubin 0.7 mg/dl (0.2-1.0) 11/27/21 14:15 AST 14 U/L (13-39) 11/27/21 14:15 ALT 10 U/L (7-52) 11/27/21 14:15 Alkaline Phosphatase 70 U/L (34-104) 11/27/21 14:15 Total Creatine Kinase 95 U/L (30-223) 11/27/21 14:15 Troponin I High Sens 7.1 pg/ml (0-20) 11/27/21 14:15 Total Protein 7.9 gm/dl (6.0-8.3) 11/27/21 14:15 Total Protein (PEP) 6.7 g/dL (6.1-8.1) 11/28/21 05:42 Albumin 4.3 gm/dl (3.4-5.0) 11/27/21 14:15 Albumin (PEP) 3.9 g/dL (3.8-4.8) 11/28/21 05:42 Globulin 3.6 gm/dl (2.5-4.0) 11/27/21 14:15 Albumin/Globulin Ratio 1.2 (0.9-2) 11/27/21 14:15 Krmqn-6-Ajjdiousi 0.3 g/dL (0.2-0.3) 11/28/21 05:42 Iglss-4-Nabiwratx 0.7 g/dL (0.5-0.9) 11/28/21 05:42 Fyeb-0-Kwhodcvo 0.4 g/dL (0.4-0.6) 11/28/21 05:42 Ofnv-9-Knytlgmp 0.4 g/dL (0.2-0.5) 11/28/21 05:42 Gamma Globulins 1.1 g/dL (0.8-1.7) 11/28/21 05:42 Monoclonal Peak 3 DNR g/dL (NONE DETECTED) 11/28/21 05:42 Ser Monoclonl Protein DNR g/dL (NONE DETECTED) 11/28/21 05:42 Ser Monoclonal Prot 2 DNR g/dL (NONE DETECTED) 11/28/21 05:42 PEP Interpretation SEE NOTE 11/28/21 05:42 Triglycerides 95 mg/dl (0-150) 11/28/21 05:42 Cholesterol 220 mg/dl (0-200) H 11/28/21 05:42 LDL Cholesterol, Calc 156 mg/dl 11/28/21 05:42 VLDL Cholesterol, Calc 19 mg/dl (0-30) 11/28/21 05:42 HDL Cholesterol 45 mg/dl 11/28/21 05:42 Cholesterol/HDL Ratio 4.9 (0-5) 11/28/21 05:42 Vitamin B12 283 pg/ml (180-914) 11/28/21 05:42 Folate > 22.30 ng/ml (>5.38) 11/28/21 05:42 TSH 1.719 uIu/ml (0.300-4.500) 11/27/21 14:15 Urine Color Yellow 11/27/21 17:09 Urine Appearance Clear (Clear) 11/27/21 17:09 Urine pH 5.0 (4.5-7.5) 11/27/21 17:09 Ur Specific [place] 1.030 (1.000-1.030) 11/27/21 17:09 Urine Protein 1+ (Negative) H 11/27/21 17:09 Urine Glucose (UA) 3+ (Negative) H 11/27/21 17:09 Urine Ketones Trace (Negative) H 11/27/21 17:09 Urine Blood Trace (Negative) H 11/27/21 17:09 Urine Nitrite Negative (Negative) 11/27/21 17:09 Urine Bilirubin Negative (Negative) 11/27/21 17:09 Urine Urobilinogen Negative (Negative) 11/27/21 17:09 Ur Leukocyte Esterase Negative (Negative) 11/27/21 17:09 Urine WBC (Auto) 1-5 /hpf (0-5) 11/27/21 17:09 Urine RBC (Auto) 0-4 /hpf (0-4) 11/27/21 17:09 U Hyaline Cast (Auto) 1-5 /lpf (0-5) 11/27/21 17:09 U Epithel Cells (Auto) 0-5 /lpf (0-5) 11/27/21 17:09 Urine Bacteria (Auto) Negative (Negative) 11/27/21 17:09 U Random Total Protein 44 mg/dL (5-25) H 11/27/21 19:06 Ur Creatinine mg/dL 109 mg/dL (20-320) 11/27/21 19:06 Protein/Creatinin Ratio 0.404 (0.022-0.128) H 11/27/21 19:06 Urine Albumin (%) 62 % 11/27/21 19:06 U Vayvf-4-Pvcfhvuk (%) 1 % 11/27/21 19:06 U Knavz-0-Dsczawmp (%) 13 % 11/27/21 19:06 U Beta Globulin (%) 8 % 11/27/21 19:06 U Gamma Globulin (%) 16 % 11/27/21 19:06 U Abnormal Prot Band 1 DNR mg/dL (NONE DETECTED) 11/27/21 19:06 U Abnormal Prot Band 2 DNR mg/dL (NONE DETECTED) 11/27/21 19:06 U Abnormal Prot Band 3 DNR mg/dL (NONE DETECTED) 11/27/21 19:06 Urine PEP Interpret SEE NOTE 11/27/21 19:06 Lyme Disease IgG Ab Negative (Negative) 11/27/21 14:15 Lyme Disease IgM Ab Negative (Negative) 11/27/21 14:15 SARS-CoV-2, RNA, NAAT NEGATIVE (NEGATIVE) 11/27/21 18:48 Impressions Chest X-Ray 11/27/21 13:14 XR chest 1V portable HISTORY: 71 years-old Male weakness acute weakness COMPARISON: None TECHNIQUE: Portable AP view of the chest FINDINGS: The cardiomediastinal and hilar silhouettes are within normal limits. Atherosclerosis of the thoracic aorta. No pneumothorax, pleural effusion, airspace consolidation or overt pulmonary edema. Degenerative changes of the shoulders and spine. IMPRESSION: No acute process. ACT 112: Negative or not required by law. The above report was generated using voice recognition software. It may contain grammatical, syntax or spelling errors. Electronically signed by: Alexi Rock M.D. 11/27/2021 3:12 PM Abdomen/Pelvis CT 11/27/21 15:29 CT abd pelvis wo con CLINICAL HISTORY: back pain, BLE weakness TECHNIQUE: Helical axial images of the abdomen and pelvis were obtained. Automated dose lowering techniques and/or adjustment according to patient size were utilized for this exam. This exam was performed without intravenous contrast. CT DOSE: 320.70 mGy.cm COMPARISON: Comparison is made to CT abdomen pelvis 02/19/2007 FINDINGS: Lower chest: No acute abnormality Liver: Unremarkable. No focal lesions are seen. Gallbladder and biliary tree: No calcified gallstones. Normal caliber wall. No intra- or extrahepatic biliary ductal dilation. Pancreas: Unremarkable, no focal lesions. Spleen: Unremarkable. Adrenals: Unremarkable. Kidneys and ureters: Perinephric stranding is noted bilaterally. Bladder: Unremarkable. Reproductive organs: Prostatomegaly is seen. Bowel: Unremarkable appearance of the bowel. The appendix is normal. A small hiatal hernia is seen. Lymph nodes Retroperitoneal: Unremarkable. Mesenteric: Subcentimeter lymph nodes are noted. Pelvic: Unremarkable. Peritoneum: Pearl mesentery is seen in the central abdomen, somewhat more prominent than in the prior exam. Vessels: Atherosclerotic calcifications are seen. Abdominal wall: Left fat containing inguinal hernia. Bones: Degenerative changes in the visualized spine. No evidence of acute fracture. IMPRESSION: No acute abnormalities to explain back pain and bilateral weakness. Slightly progressed Pearl mesentery is noted, which is nonspecific but can be seen in mesenteric adenitis. ACT 112: Negative or not required by law. Electronically signed by: Tutu Cartwright M.D. 11/27/2021 4:28 PM Head CTA 11/27/21 21:53 CT angio head wo/w CLINICAL HISTORY: dizzy, elevated bp COMPARISON STUDY: No previous studies for comparison. CT DOSE: 1622.29 mGy.cm TECHNIQUE: CT Angio of the brain was performed.followed by image post processing with coronal, and sagittal MIP reformats. Contrast Volume: Optiray 320, 119 ml FINDINGS: Vascular findings: There is normal enhancement within the internal carotid arteries bilaterally. There is normal enhancement noted within the anterior, middle and posterior cerebral arteries. There is mild atherosclerotic disease present with no evidence for significant stenosis. Nonvascular findings: There is mild cerebral cortical atrophy and decreased attenuation in the periventricular white matter representing remote small vessel disease. There is no evidence for an acute infarct or cerebral edema. IMPRESSION: 1. Mild atherosclerotic disease involving the cavernous portions of the bilateral carotid arteries and intracranial portion of the bilateral vertebral arteries with no evidence for focal stenosis. 2. No acute intracerebral pathology. ACT 112: Negative or not required by law. Electronically signed by: Francesco Rincon M.D. 11/28/2021 7:47 AM Neck CTA 11/27/21 21:53 CT angio neck with con CLINICAL HISTORY: 71 years-old Male with dizzy, elevated bp. Acute dizziness with hypertension COMPARISON STUDY: CTA of the head of same day TECHNIQUE: Following the IV administration of 119 mL of Optiray, CT angiogram of the neck was performed from the aortic arch to the skull base. Images are reviewed in the axial, sagittal, and coronal planes. 3-D MIPS images are created and assessed. IV contrast was administered without complication. All measuremen ts were calculated based on NASCET criteria. A dose lowering technique was utilized adhering to the principles of ALARA. FINDINGS: Atherosclerotic plaque of the thoracic arch results in mild stenosis at the origin of the left subclavian artery. The innominate and imaged subclavian arteries are patent. Patent common carotid arteries. There is minimal atheromatous plaque of the carotid bulbs and proximal cervical segments of the internal carotid arteries without high-grade stenosis. There is approximately 50% stenosis involving the proximal petrous portion of the right internal carotid artery on image 311 of series 8 with mild stenosis involving the mid to distal petrous segment on image 325 of series 8. There is no high-grade stenosis within this distribution. Atherosclerotic plaque of the cavernous, clinoid and supraclinoid segments results in approximately 50% stenosis bilaterally. There is high-grade stenosis at the origin of the left vertebral artery secondary to atherosclerotic plaque. The left vertebral artery is dominant. Short segment area of high-grade stenosis involves the proximal V4 segment of the left vertebral artery on image 300. Multifocal stenoses involves the V2 segment of the right vertebral artery measuring up to 50% on image 187 of series 8 at the level of C4 secondary to atherosclerotic plaquing degenerative spurring. There is of high-grade stenosis are noted within the V3 and V4 segments of the right vertebral artery and vertebral basilar confluence. The lung apices are clear without pneumothorax. Unremarkable soft tissues. Degenerative changes of the cervical spine. Mild mucosal thickening of the paranasal sinuses. IMPRESSION: 1. 50% stenosis involves the proximal aspect of the petrous segment of the right internal carotid artery with atheromatous plaque versus age-indeterminate dissection involving the mid petrous segment resulting in less than 50% stenosis. 2. Multifocal high-grade stenoses of the vertebral arteries. Both of these findings were called to the nursing floor at time of dictation. ACT 112: Negative or not required by law. The above report was generated using voice recognition software. It may contain grammatical, syntax or spelling errors. Electronically signed by: Alexi Rock M.D. 11/28/2021 9:39 AM Brain MRI 11/29/21 00:41 MR brain wo con HISTORY: 71 years-old Male cerebellar symptoms b/l vertebral artery stenosis acute strokelike symptoms COMPARISON: CTA head and neck 11/27/2021 TECHNIQUE: Multiplanar multisequence MRI of the brain was obtained without the use of IV contrast. FINDINGS: [employer] localizer images demonstrate no gross extracranial abnormality. There is a linear 0.5 cm focus of restricted diffusion within the left de [place]antos rad iata/posterior aspect of the left external capsule distribution which demonstrates decreased signal on the ADC map and increased T2/FLAIR signal. Additionally, there is an 8 mm focus of slightly increased diffusion-weighted signal with intermediate to decreased signal on ADC map, image 6 of series 4 within the left cerebellar hemisphere. This focus also demonstrates increased T2/FLAIR signal. Scattered chronic lacunar infarcts of the cerebellum, basal ganglia, left thalamus and roderick. Age-related involutional changes. Mild to moderate T2/FLAIR hyperintense foci are noted throughout the white matter. No acute intracranial hemorrhage, midline shift, abnormal extra-axial collection, hydrocephalus or intracranial mass. The cerebral venous sinuses and major arterial flow voids appear patent. The mastoid air cells are clear. There is a 1.9 cm focus of polypoid mucosal thickening involving the right posterior nasal aperture. Mild mucosal thickening of the ethmoid air cells. The skull, orbits and soft tissues are unremarkable. IMPRESSION: 1. 2.5 cm linear focus of restricted diffusion involving the left de [place] santos radiata/external capsule distribution is compatible with an acute infarct. 2. Subcentimeter focus of restricted diffusion involving the left cerebellar hemisphere is suggestive of an acute versus subacute infarct. 3. Chronic lacunar infarcts of the cerebellum, brainstem and basal ganglia. 4. Involutional changes with chronic microvascular ischemic disease. ACT 112: Negative or not required by law. The above report was generated using voice recognition software. It may contain grammatical, syntax or spelling errors. Electronically signed by: Alexi Rock M.D. 11/29/2021 7:27 AM Renal Artery Duplex 11/30/21 07:26 US duplex renal artery CLINICAL HISTORY: resistant hypertension TECHNIQUE: Real-time grayscale and color and spectral Doppler ultrasound imaging of the kidneys was performed. Comparison: None available at the time of this dictation. FINDINGS: RIGHT: The right kidney measures 10.3 cm in length. Normal echogenicity with preserved corticomedullary differentiation. Normal cortical thickness. No hydronephrosis. No convincing evidence of calculus or mass. Spectral analysis: Intrarenal resistive indices range from 0.62 to 0.73. Waveforms are normal in appearance.. Renal artery patent with peak systolic velocity 148 cm/s proximally, 124 cm/s in the midportion, and 118 cm/s distally. Renal vein patent. LEFT: The left kidney measures 10.3 cm in length. Normal echogenicity with preserved corticomedullary differentiation. Normal cortical thickness. No hydronephrosis. No convincing evidence of calculus or mass. Spectral analysis: Intrarenal resistive indices range from 0.53 to 0.60. Waveforms are normal in appearance. Renal artery patent with peak systolic velocity 130 cm/s proximally, 120 cm/s in the midportion, and 117 cm/s distally. Renal vein patent. Abdominal aorta: Patent. Peak systolic velocity 96 cm/s. Bladder: Normal. Bilateral ureteral jets present. Reference ranges: Normal main renal artery peak systolic velocity less than 180 cm/s. Ratio of renal artery PSV to aortic PSV less than 3.5 equates to normal or less than 60% stenosis. Only one of the two criteria listed needs to be met for diagnosis. IMPRESSION: No evidence of renal artery stenosis. ACT 112: Negative or not required by law. Electronically signed by: Tutu Cartwright M.D. 11/30/2021 2:[address] 11/30/21 15:09 CT OF THE HEAD WITHOUT CONTRAST CLINICAL HISTORY: Worsening stroke symptoms COMPARISON STUDY: Head CT and CTA of the head November 27, 2021. MRI of the brain November 29, 2021. CT DOSE: 614.27 mGy.cm TECHNIQUE: Helical axial images of the head were obtained without IV contrast. Automated exposure control was utilized for the study. A dose lowering technique was utilized adhering to the principles of ALARA. FINDINGS: No acute intracranial hemorrhage is present. Note is made of a 3 x 1.1 cm hypodensity within the left [place] radiata/external capsule consistent with acute infarct. Extensive may have slightly increased since MRI of November 29, 2021. There is minimal mass effect. No hemorrhagic conversion is noted. Basal cisterns are patent. There are no extra axial collections. IMPRESSION: 3 x 1.1 cm acute infarct within the left [place] radiata and external capsule. Minimal mass effect. No hemorrhagic conversion. Possible slight increase in extent since MRI of November 29, 2021. ACT 112: Negative or not required by law. Electronically signed by: Genaro Melendez M.D. 11/30/2021 4:07 PM Medications Administered Current Inpatient Medications Acetaminophen (Acetaminophen 325 Mg Tab) 650 mg PO Q4H PRN PRN Reason: pain/fever Stop: 12/28/21 01:48 Last Admin: 11/30/21 06:32 Dose: 650 mg Documented by: Amlodipine Besylate (Amlodipine Besylate 5 Mg Tab) 5 mg PO QAM [facility] Stop: 12/30/21 08:59 Last Admin: 12/03/21 08:39 Dose: 5 mg Documented by: Aspirin (Aspirin 81 Mg Ectab) 81 mg PO QAM [facility] Stop: 12/29/21 08:59 Last Admin: 12/03/21 08:39 Dose: 81 mg Documented by: Clopidogrel Bisulfate (Clopidogrel Bisulfate 75 Mg Tab) 75 mg PO QAM [facility] Stop: 12/31/21 11:14 Last Admin: 12/03/21 08:39 Dose: 75 mg Documented by: Dextrose (Dextrose 50% 50 Ml Syringe) 25 - 50 ml IV UD PRN; Protocol PRN Reason: Hypoglycemia Protocol Stop: 12/28/21 01:48 Enoxaparin Sodium (Enoxaparin Inj 40 Mg/0.4 Ml Syr) 40 mg SQ Q24H [facility] Stop: 12/28/21 08:59 Last Admin: 12/03/21 08:39 Dose: 40 mg Documented by: Glucagon (Glucagon For Inj 1 Mg Vial) 1 mg SQ UD PRN; Protocol PRN Reason: Hypoglycemia Protocol Stop: 12/28/21 01:48 Glucose (Glucose 10 Tabs/Tube) 4 - 8 tabs PO UD PRN; Protocol PRN Reason: Hypoglycemia Protocol Stop: 12/28/21 01:48 Glucose (Glucose 40% Gel 15 Gm Tube) 15 - 30 gm PO UD PRN; Protocol PRN Reason: Hypoglycemia Protocol Stop: 12/28/21 01:48 Insulin Aspart (Insulin Aspart Per Unit) 0 units SC ACHS [facility] Stop: 12/28/21 01:48 Last Admin: 12/03/21 08:34 Dose: 2 units Documented by: Losartan Potassium (Losartan Potassium 50 Mg Tab) 100 mg PO HS [facility] Stop: 12/29/21 20:59 Last Admin: 12/02/21 20:13 Dose: 100 mg Documented by: Meclizine HCl (Meclizine 12.5 Mg Tab) 12.5 mg PO Q12 PRN PRN Reason: Dizziness or Vertigo Stop: 01/01/22 07:05 Melatonin (Melatonin 3 Mg Tab) 3 mg PO [facility] Stop: 12/28/21 20:59 Last Admin: 12/02/21 20:16 Dose: 3 mg Documented by: Metoprolol Tartrate (Metoprolol Tartrate 1 Mg/Ml Vial) 5 mg IV Q4 PRN PRN Reason: Hypertension Stop: 12/28/21 00:00 Last Admin: 11/30/21 06:33 Dose: 5 mg Documented by: Metoprolol Tartrate (Metoprolol Tartrate 25 Mg Tab) 25 mg PO BID [facility] Stop: 12/28/21 20:59 Last Admin: 12/03/21 08:39 Dose: 25 mg Documented by: Miscellaneous (Carbohydrates For Hypoglycemia ) 15 - 30 gm PO UD PRN PRN Reason: Hypoglycemia Protocol Stop: 12/28/21 01:48 Ondansetron HCl (Ondansetron Inj 2 Mg/Ml 2 Ml Vial) 4 mg IV Q4H PRN PRN Reason: Nausea Stop: 12/28/21 01:48 Last Admin: 11/29/21 07:18 Dose: 4 mg Documented by: Polyethylene Glycol (Polyethylene (Miralax) 17 Gm Pack) 17 gm PO DAILY PRN PRN Reason: Constipation Stop: 12/28/21 16:35 Polyethylene Glycol (Polyethylene (Miralax) 17 Gm Pack) 17 gm PO DAILY [facility] Stop: 12/30/21 10:14 Last Admin: 12/03/21 08:39 Dose: 17 gm Documented by: Rosuvastatin Calcium (Rosuvastatin Calcium 20 Mg Tab) 40 mg PO QAM [facility] Stop: 12/29/21 08:59 Last Admin: 12/03/21 08:39 Dose: 40 mg Documented by: Resident Activity Tracking Resident Involvement: Resident Care Provided Care Provided: Adult Hospital Medicine (1) Hyperglycemia due to type 2 diabetes mellitus Diabetes mellitus alf insulin use: unspecified terminal gauger insulin use status Qualified Code(s): E11.65 - Type 2 diabetes mellitus with hyperglycemia
[2021-12-03] MEDS: INSULIN ASPART PER UNIT SC SCH ×4 (08:34→20:58)
[2021-12-03] MEDS: ENOXAPARIN INJ 40 MG/0.4 ML SYR SQ SCH (08:39)
[2021-12-03] MEDS: POLYETHYLENE (MIRALAX) 17 GM PACK PO SCH (08:39)
[2021-12-03] MEDS: CLOPIDOGREL BISULFATE 75 MG TAB PO SCH (08:39)
[2021-12-03] MEDS: amLODIPine BESYLATE 5 MG TAB PO SCH (08:39)
[2021-12-03] MEDS: ROSUVASTATIN CALCIUM 20 MG TAB PO SCH (08:39)
[2021-12-03] MEDS: METOPROLOL TARTRATE 25 MG TAB PO SCH ×2 (08:39→20:43)
[2021-12-03] MEDS: ASPIRIN 81 MG ECTAB PO SCH (08:39)
[2021-12-03] MEDS: DICLOFENAC SOD 1% GEL 100 GM TUBE EXT SCH ×3 (12:46→20:43)
--- NOTE | 2021-12-03 14:32 | Billing Data ---
Date of Service December 03, 2021 Coding Level of Care Code 02422 Subseq Hosp Care Lvl 3
--- NOTE | 2021-12-03 14:33 | Billing Data ---
Date of Service December 03, 2021 Coding Level of Care Code 43418 Subseq Hosp Care Lvl 3
[2021-12-03] MEDS: LOSARTAN POTASSIUM 50 MG TAB PO SCH (20:43)
[2021-12-03] MEDS: INSULIN GLARGINE SOLOSTAR 100 UNITS/ML 3 ML PEN SC SCH (20:58)
[2021-12-03] MEDS: MELATONIN 3 MG TAB PO SCH (21:01)
[2021-12-03] MEDS: METOPROLOL TARTRATE 1 MG/ML VIAL IV PRN (23:56)
[2021-12-04] MEDS ORDERED: MoRPHine SULFATE 2 MG/ML CARP IV STA ×2 (00:56→22:21)
[2021-12-04] MEDS ORDERED: METOPROLOL TARTRATE 1 MG/ML VIAL IV PRN (00:57)
[2021-12-04 05:35] LABS: Basophils # (auto) 0.03 K/uL (0-0.2); Basophils % (auto) 0.3 %; Eosinophils # (auto) 0.51 K/uL (0-0.5); Eosinophils % (auto) 5.7 %; Hematocrit (blood only) 37.3 % (42-52); Hemoglobin 12.4 g/dL (14.0-18.0); Immature Granulocytes # (auto) 0.02 K/uL (0.00-0.02); Immature Granulocytes % (auto) 0.2 %; Lymphocytes # (auto) 2.18 K/uL (1.2-3.4); Lymphocytes % (auto) 24.6 %; Mean Corpuscular Hemoglobin 27.4 pg (25-34); Mean Corpuscular Hgb Conc 33.2 g/dL (32-36); Mean Corpuscular Volume 82.5 fL (80-100); Mean Platelet Volume 9.3 fL (7.4-10.4); Monocytes # (auto) 0.94 K/uL (0.11-0.59); Monocytes % (auto) 10.6 %; Neutrophils # (auto) 5.19 K/uL (1.4-6.5); Neutrophils % (auto) 58.6 %; Platelet Count 214 K/uL (130-400); RDW Standard Deviation 39.4 fL (36.4-46.3); Red Blood Count 4.52 M/uL (4.7-6.1); White Blood Count 8.87 K/uL (4.8-10.8)
[2021-12-04 06:10] LABS: Anion Gap 6 (3-11); Blood Urea Nitrogen 25 mg/dl (6-23); Calcium 8.7 mg/dl (8.5-10.1); Carbon Dioxide 27 mmol/L (21-32); Chloride 106 mmol/L (98-107); Est GFR (African American) 58.3 ml/min; Est GFR (Non-African American) 50.3 ml/min; Glucose 136 mg/dl (70-99(Fasting)); Sodium 139 mmol/L (136-145)
--- NOTE | 2021-12-04 09:49 | Hospitalist Progress Note ---
Date of Service December 04, 2021 Assessment & Plan (1) Hypertensive urgency: Plan: 71yo Male PMH Lasix surgery no PCP 20 years presents with 1 week of weakness in lower extremities. (1) Acute ischemic stroke: - Neck CTA 11/27= multiple high grade stenosis noted on b/l vertebral artery - Head CTA 11/27= no intracranial pathology, mild atherosclerotic disease - Brain MRI w/o contrast 11/29 = 1. 2.5 cm linear focus of restricted diffusion involving the left de [place] santos radiata/external capsule distribution is compatible with an acute infarct. 2. Subcentimeter focus of restricted diffusion involving the left cerebellar hemisphere is suggestive of an acute versus subacute infarct. 3. Chronic lacunar infarcts of the cerebellum, brainstem and basal ganglia. Involutional changes with chronic microvascular ischemic disease. - echo unremarkable - CT head 11/30 no contrast given worsening symptoms 3 x 1.1 cm acute infarct within the left de [place] santos radiata and external capsule. Minimal mass effect. No hemorrhagic conversion. Possible slight increase in extent since MRI of November 29, 2021. - TSH normal. Folate B12 wnl. No smoking alcohol - mildly elevated ESR 40 - patient understands he needs better control of HTN DM to prevent stroke recurrence - neurology consult placed, recommend starting plavix 75mg daily with ASA 81mg for 3 weeks, after which plavix alone. Consider adding fluoxetine for depressed mood. Continue BP glucose control, PT/OT/speech therapy - started aspirin 81mg plavix 75mg daily, rosuvastatin 40mg daily - RUE and RLE weakness have progressed to immobile against gravity since admission - PT/OT ordered, recommend inpatient rehab - speech therapy ordered, noted aphasia and dysarthria, recommend speech therapy follow in rehab Patient heaviness in throat and some choking with swallowing may indicate d ysphagia, confirmed by speech therapy, diet changed to minced/moist with nectar thick liquids Barium swallow study pending -continue oral care, aspiration precautions - Family updated as of 12/04 (2) Diabetes: - A1c 9.9, newly diagnosed diabetic, patient made aware he is diabetic - Sliding scale - glucose well controlled in hospital with minimal insulin on carb consistent diet, patient may greatly improve glycemic control and diet change - DM educator consult placed: 1.) Insulin adjustments, as needed, to help maintain BG values in a safe range. 2.) Recommend discharge on Metformin ER 500mg BID with Jardiance or Farxiga give recent stroke PRESCRIPTIONS NEEDED: 1.) OneTouch Verio Test Strips to check 1x/day. 2.) OneTouch Delica Lancets 33 gauge to check 1x/day. (3) Hypertension: - Home BP 180-190 range. In the ER, BP consistently >200/110 - Start losartan 100 mg HS, Metoprolol Tartrate 25mg BID PO, Amlodipine 5mg daily if patient's BP continues to stay around systolic 160, will consider decreasing metoprolol to reduce medication complexity - Metoprolol IV 5mg PRN for SBP > 180 or DBP 100. - renal artery duplex negative for stenosis - goal to maintain BP systolic 160-180 while in hospital - BP below sys 180 starting 12/01 (4) Atherosclerosis with HLD -Total cholesterol 220 -started rosuvastatin 40mg daily -started on ASA 81mg Plavix 75mg daily, will transition to plavix alone in 3 weeks ()Abnormal UPEP - lab order at the time of admission as work up for weakness - SPEP wnl, UPEP = Urine protein electophoresis reveals a slight restriction in the gamma region that may indicate the presence of a monoclonal immunoglobulin - should have outpatient follow up. ()Muscle Spasm -located on right thigh -Patient understands to continue working with PT -ordered voltaren gel QID -will consider OMT if this continues ()Blurry Vision -likely 2/2 to stroke -PERRLA EOMI -continue to monitor FENa: card consistent, minced and moist, thickened liquids (nectar) Code Status: Full DVT PPX: Lovenox PT/OT: inpatient rehab. Speech therapy: aphasia with dysarthria, continue speech therapy in rehab Case Management: looking into [facility] Dispo: med/tele Romina Ellis Do PGY 2, FCM (2) Hyperglycemia due to type 2 diabetes mellitus: (3) Diabetes: (4) Weakness: (5) Ischemic stroke: (6) Hypertension: (7) Atherosclerosis of vertebral artery: (8) Vertebral artery stenosis: Admission and Anticipated Discharge Date Admission Date: November 29, 2021 Supervising Physician Co-Signing Physician Notes Resident Physician Supervision Note: I independently interviewed and examined the patient and verified the [place] history and physical, reviewed labs and image studies and agree with resident Dr. Ellis findings and care plan. Subjective Patient seen at bedside calm comfortable cooperative, he required assistance sitting up straight. Was able to sleep well. Still no BM. States he still chokes on thin liquids, was unable to eat most of breakfast, did not have apple sauce this morning. Patient states he feels his speech still has difficulty finding words and moving his tongue around them. He denies any changes in strength on his LUE and LLE, no change in his RUE and RLL. He states the voltaren gel helped with his right thigh cramp, but is still getting involuntary movement in his leg, denies stiffness. Patient states he feels tired working around his new disabilities. Patient has questions on how long his symptoms will last, understands it may take weeks-months for his symptoms to improve. Review of Systems Review of Systems: Positive cough Negative fever chills Negative headache dizziness Negative chest pain palpitations SOB Negative nausea vomitting diarrhea constipation Negative numbness tingling rash swelling Physical Exam Constitutional: WD/WN, vitals as above Eyes: PERRL, conjunctivae normal, anicteric sclerae ENMT: external ear and nose normal, oropharynx normal Mouth: + dry oral mucous membranes Neck: trachea midline, no thyromegaly Respiratory: normal respiratory effort, lungs clear to auscultation Cardiovascular: RRR, no murmur, no edema Chest (Breasts): Chest: normal inspection of chest Gastrointestinal (Abdomen): normal bowel sounds, soft, nontender, no hepatosplenomegaly Skin: no rashes, warm and dry Neurologic: Speech / Cognition: + expressive aphasia Motor/Sensory: no sensory deficit Cranial Nerves: PERRL, normal accommodation, EOM intact bilaterally, normal hearing, able to rotate head bilaterally, no nystagmus and symmetric palate elevation; + abnormal facial strength (reduced smile on right), + tongue not midline (tongue deviated right) and + not able to elevate shoulders (reduced right shoulder elevation) Unable to move right fingers or hand. Patient can extend right arm if positioned against gravity strength 2/5, cannot flex arm. Strength of left upper extremity intact 5/5 Unable to move right hip or knee, can plantarflex if positioned against gravity strength 2/5, cannot plantarflex, cannot move toes. Strength of left lower extremity intact 5/5 Psychiatric: Mood: + depressed mood Results & Data Results & Data ([facility]) Vital Signs (Past 12 Hours) Vital Signs Temp Pulse Pulse Pulse Resp BP BP 12/04/21 08:17 36.7 C 71 19 164/85 H 12/04/21 04:21 36.8 C 66 16 146/77 H 12/04/21 01:35 135/71 12/04/21 01:10 70 146/85 H 12/04/21 00:27 197/101 H 12/03/21 23:56 76 198/90 H 12/03/21 23:40 36.8 C 67 20 191/90 H 12/03/21 22:14 69 Pulse Ox 12/04/21 08:17 95 12/04/21 04:21 98 12/04/21 01:35 12/04/21 01:10 12/04/21 00:27 12/03/21 23:56 12/03/21 23:40 94 12/03/21 22:14 Laboratory Results 12/04/21 12/04/21 12/04/21 Range/Units 11:51 07:25 07:02 WBC (4.8-10.8) K/uL RBC (4.7-6.1) M/uL Hgb (14.0-18.0) g/dL Hct (42-52) % MCV (80-100) fL MCH (25-34) pg MCHC (32-36) g/dL RDW Std Deviation (36.4-46.3) fL RDW Coeff of Cassandra (11.5-14.5) % Plt Count (130-400) K/uL MPV (7.4-10.4) fL Immature Gran % (Auto) % Neut % (Auto) % Lymph % (Auto) % Payette % (Auto) % Eos % (Auto) % Baso % (Auto) % Neut # (Auto) (1.4-6.5) K/uL Lymph # (Auto) (1.2-3.4) K/uL Payette # (Auto) (0.11-0.59) K/uL Eos # (Auto) (0-0.5) K/uL Baso # (Auto) (0-0.2) K/uL Immature Gran # (Auto) (0.00-0.02) K/uL Sodium (136-145) mmol/L Potassium 3.9 Chloride (98-107) mmol/L Carbon Dioxide (21-32) mmol/L Anion Gap (3-11) BUN (6-23) mg/dl Creatinine (0.6-1.4) mg/dl Est Cr Clr Drug Dosing ml/min Est GFR ( Amer) ml/min Est GFR (Non-Af Amer) ml/min BUN/Creatinine Ratio (10-20) Glucose (70-99(Fasting)) mg/dl POC Glucose 173 H 157 H (70-99) mg/dl Calcium (8.5-10.1) mg/dl 12/04/21 12/04/21 12/03/21 Range/Units 05:20 05:20 20:36 WBC 8.87 (4.8-10.8) K/uL RBC 4.52 L (4.7-6.1) M/uL Hgb 12.4 L (14.0-18.0) g/dL Hct 37.3 L (42-52) % MCV 82.5 (80-100) fL MCH 27.4 (25-34) pg MCHC 33.2 (32-36) g/dL RDW Std Deviation 39.4 (36.4-46.3) fL RDW Coeff of Cassandra 13.0 (11.5-14.5) % Plt Count 214 (130-400) K/uL MPV 9.3 (7.4-10.4) fL Immature Gran % (Auto) 0.2 % Neut % (Auto) 58.6 % Lymph % (Auto) 24.6 % Payette % (Auto) 10.6 % Eos % (Auto) 5.7 % Baso % (Auto) 0.3 % Neut # (Auto) 5.19 (1.4-6.5) K/uL Lymph # (Auto) 2.18 (1.2-3.4) K/uL Payette # (Auto) 0.94 H (0.11-0.59) K/uL Eos # (Auto) 0.51 H (0-0.5) K/uL Baso # (Auto) 0.03 (0-0.2) K/uL Immature Gran # (Auto) 0.02 (0.00-0.02) K/uL Sodium 139 (136-145) mmol/L Potassium TNP Chloride 106 (98-107) mmol/L Carbon Dioxide 27 (21-32) mmol/L Anion Gap 6 (3-11) BUN 25 H (6-23) mg/dl Creatinine 1.39 (0.6-1.4) mg/dl Est Cr Clr Drug Dosing 48.0 ml/min Est GFR ( Amer) 58.3 ml/min Est GFR (Non-Af Amer) 50.3 ml/min BUN/Creatinine Ratio 18.0 (10-20) Glucose 136 H (70-99(Fasting)) mg/dl POC Glucose 155 H (70-99) mg/dl Calcium 8.7 (8.5-10.1) mg/dl 12/03/21 Range/Units 17:06 WBC (4.8-10.8) K/uL RBC (4.7-6.1) M/uL Hgb (14.0-18.0) g/dL Hct (42-52) % MCV (80-100) fL MCH (25-34) pg MCHC (32-36) g/dL RDW Std Deviation (36.4-46.3) fL RDW Coeff of Cassandra (11.5-14.5) % Plt Count (130-400) K/uL MPV (7.4-10.4) fL Immature Gran % (Auto) % Neut % (Auto) % Lymph % (Auto) % Payette % (Auto) % Eos % (Auto) % Baso % (Auto) % Neut # (Auto) (1.4-6.5) K/uL Lymph # (Auto) (1.2-3.4) K/uL Payette # (Auto) (0.11-0.59) K/uL Eos # (Auto) (0-0.5) K/uL Baso # (Auto) (0-0.2) K/uL Immature Gran # (Auto) (0.00-0.02) K/uL Sodium (136-145) mmol/L Potassium Chloride (98-107) mmol/L Carbon Dioxide (21-32) mmol/L Anion Gap (3-11) BUN (6-23) mg/dl Creatinine (0.6-1.4) mg/dl Est Cr Clr Drug Dosing ml/min Est GFR ( Amer) ml/min Est GFR (Non-Af Amer) ml/min BUN/Creatinine Ratio (10-20) Glucose (70-99(Fasting)) mg/dl POC Glucose 162 H (70-99) mg/dl Calcium (8.5-10.1) mg/dl Resident Activity Tracking Resident Involvement: Resident Care Provided Care Provided: Adult Hospital Medicine (1) Hyperglycemia due to type 2 diabetes mellitus Diabetes mellitus [facility] insulin use: unspecified [facility] insulin use status Qualified Code(s): E11.65 - Type 2 diabetes mellitus with hyperglycemia
[2021-12-04] MEDS: INSULIN ASPART PER UNIT SC SCH ×4 (10:15→21:09)
[2021-12-04] MEDS: CLOPIDOGREL BISULFATE 75 MG TAB PO SCH (10:25)
[2021-12-04] MEDS: ROSUVASTATIN CALCIUM 20 MG TAB PO SCH (10:25)
[2021-12-04] MEDS: ASPIRIN 81 MG ECTAB PO SCH (10:25)
[2021-12-04] MEDS: amLODIPine BESYLATE 5 MG TAB PO SCH (10:25)
[2021-12-04] MEDS: DICLOFENAC SOD 1% GEL 100 GM TUBE EXT SCH ×4 (10:31→21:07)
[2021-12-04] MEDS: ENOXAPARIN INJ 40 MG/0.4 ML SYR SQ SCH (10:31)
[2021-12-04] MEDS ORDERED: POLYETHYLENE (MIRALAX) 17 GM PACK ONE (10:35)
[2021-12-04] MEDS ORDERED: Nursing to Pharmacy Communication SCH (10:45)
[2021-12-04] MEDS: POLYETHYLENE (MIRALAX) 17 GM PACK PO SCH ×2 (10:59→11:00)
[2021-12-04] MEDS: METOPROLOL TARTRATE 25 MG TAB PO SCH ×2 (11:19→21:10)
[2021-12-04] MEDS: INSULIN GLARGINE SOLOSTAR 100 UNITS/ML 3 ML PEN SC SCH (21:09)
[2021-12-04] MEDS: LOSARTAN POTASSIUM 50 MG TAB PO SCH (21:10)
[2021-12-04] MEDS: MELATONIN 3 MG TAB PO SCH (21:11)
[2021-12-05 05:40] LABS: Basophils # (auto) 0.03 K/uL (0-0.2); Basophils % (auto) 0.4 %; Eosinophils # (auto) 0.47 K/uL (0-0.5); Eosinophils % (auto) 5.5 %; Hematocrit (blood only) 37.6 % (42-52); Hemoglobin 12.3 g/dL (14.0-18.0); Immature Granulocytes # (auto) 0.02 K/uL (0.00-0.02); Immature Granulocytes % (auto) 0.2 %; Lymphocytes # (auto) 2.09 K/uL (1.2-3.4); Lymphocytes % (auto) 24.6 %; Mean Corpuscular Hemoglobin 27.2 pg (25-34); Mean Corpuscular Hgb Conc 32.7 g/dL (32-36); Mean Corpuscular Volume 83.2 fL (80-100); Mean Platelet Volume 9.9 fL (7.4-10.4); Monocytes # (auto) 0.85 K/uL (0.11-0.59); Neutrophils # (auto) 5.05 K/uL (1.4-6.5); Neutrophils % (auto) 59.3 %; Platelet Count 225 K/uL (130-400); RDW Coefficient of Variation 13.1 % (11.5-14.5); RDW Standard Deviation 39.8 fL (36.4-46.3); Red Blood Count 4.52 M/uL (4.7-6.1); White Blood Count 8.51 K/uL (4.8-10.8)
--- NOTE | 2021-12-05 07:12 | Discharge Summary ---
Date of Service December 05, 2021 Admission HPI Per Admitting Provider 71yo M w/ no major PMH who presents with generlized weakness and some loss of balance. The patient notes that he was in his normal state of health until about 1 week ago. He notes that he had been checking his blood pressure from time to time and noted it was consistently in the 180s range. About 1 week ago, he was mowing his lawn, when he felt a sensation of overall weakness. He notes that he may have also lost his balance some at the time. He reports some slight nausea. He denies any vision changes then, and he denies any pre-syncope sensation. He went inside, drank some water, and felt largely better. He notes this sensation has occurred several times over the last week. Mostly, he will feel generalized weakness in his legs, but he notes sometimes weakness in the upper extremities as well. Other than with exertion, he has no exacerbating or alleviating factors. He denies any changes in weight. No night sweats, no chest pain, no abdominal pain, no vomiting. He has not seen a PCP in 20 years, he believes. Admission Exam Per Admitting Provider Constitutional: WD/WN, vitals as above Eyes: EOM intact bilaterally; no conjunctival abnormality ENMT: external ear and nose normal, oropharynx normal Neck:J trachea midline, no thyromegaly normal visual inspection Respiratory: normal respiratory effort, lungs clear to auscultation no respiratory distress Cardiovascular: RRR, no murmur, no edema Gastrointestinal (Abdomen): Inspection/Auscultation: abdomen normal to inspection; abdomen not distended Musculoskeletal: no cyanosis or clubbing, extremities motor strength 5/5 Skin: no rashes, warm and dry Neurologic: moves all extremities and awake Psychiatric: Orientation: alert, oriented to person and cooperative Principal Diagnosis Ischemic Stroke with Hypertension and Diabetes Discharge Exam Constitutional WD/WN, vitals as above Eyes PERRL, conjunctivae normal, anicteric sclerae ENMT external ear and nose normal, oropharynx normal Mouth: + dry oral mucous membranes Neck trachea midline, no thyromegaly Respiratory normal respiratory effort, lungs clear to auscultation Cardiovascular RRR, no murmur, no edema Chest (Breasts) Chest: normal inspection of chest Gastrointestinal (Abdomen) normal bowel sounds, soft, nontender, no hepatosplenomegaly Skin no rashes, warm and dry Neurologic Speech / Cognition: + expressive aphasia Motor/Sensory: no sensory deficit Cranial Nerves: PERRL, normal accommodation, EOM intact bilaterally, normal hearing, able to rotate head bilaterally, no nystagmus and symmetric palate elevation; + abnormal facial strength (reduced smile on right), + tongue not midline (tongue deviated right) and + not able to elevate shoulders (reduced right shoulder elevation) Unable to move right fingers or hand. Patient can extend right arm if positioned against gravity strength 1/5, cannot flex arm. Strength of left upper extremity intact 5/5 Unable to move right hip or knee, can plantarflex if positioned against gravity strength 1/5, cannot plantarflex, cannot move toes. Strength of left lower extremity intact 5/5 Psychiatric Mood: + depressed mood Discharge Data Allergies Allergy/AdvReac Type Severity Reaction Status Date / Time No Known Allergies Allergy Mild Verified 11/27/21 17:55 Consultations 11/27/21 17:26 ED Decision to Admit Stat 11/30/21 14:02 Consult Neurology Routine Ordered Studies 11/27/21 15:29 CT abd pelvis wo con Stat 11/27/21 21:53 CT angio head wo/w Urgent CT angio neck with con Urgent 11/29/21 00:41 MR brain wo con Routine 11/30/21 07:26 US duplex renal artery Routine 11/30/21 15:09 CT head/brain wo con Stat 12/05/21 13:00 FL video swallow Routine Diabetes Follow up Diabetes Follow-up Needed for HgbA1c >9%,Newly Diagnosed Diabetes Hospital Course (1) Hypertensive urgency: 71yo Male PMH Lasix surgery no PCP 20 years presents with 1 week of weakness in lower extremities. -Started Apirin 81mg daily, stop on 11/22 -started plavix 75mg daily -started Metformin 500mg BID -started Metoprolol 25mg BID -Started Losartan 100mg HS -Started Amlodipine 5mg daily -Started Rosuvastatin 40mg daily -ordered Meclizine 12.5mg PRN for dizziness -ordered Voltaren Gel QID for thigh cramps -ordered Miralax 34mg daily -Patient requires close PCP follow up for BP, glucose control, evaluation for depression (1) Acute ischemic stroke: - Neck CTA 11/27= multiple high grade stenosis noted on b/l vertebral artery - Head CTA 11/27= no intracranial pathology, mild atherosclerotic disease - Brain MRI w/o contrast 11/29 = 1. 2.5 cm linear focus of restricted diffusion involving the left de los santos radiata/external capsule distribution is compatible with an acute infarct. 2. Subcentimeter focus of restricted diffusion involving the left cerebellar hemisphere is suggestive of an acute versus subacute infarct. 3. Chronic lacunar infarcts of the cerebellum, brainstem and basal ganglia. Involutional changes with chronic microvascular ischemic disease. - echo unremarkable - CT head 11/30 no contrast given worsening symptoms 3 x 1.1 cm acute infarct within the left de [place] santos radiata and external capsule. Minimal mass effect. No hemorrhagic conversion. Possible slight increase in extent since MRI of November 29, 2021. - TSH normal. Folate B12 wnl. No smoking alcohol - mildly elevated ESR 40 - neurology consult placed, recommend starting plavix 75mg daily with ASA 81mg for 3 weeks (11/22), after which plavix alone. started aspirin 81mg plavix 75mg daily, rosuvastatin 40mg daily - RUE and RLE weakness have progressed to immobile against gravity since admission - PT/OT ordered, recommend inpatient rehab - speech therapy ordered, noted aphasia dysarthria and dysphagia, recommend speech therapy follow in rehab diet changed to puree with nectar thick liquids -continue oral care, aspiration precautions (2) Diabetes: - A1c 9.9, newly diagnosed diabetic, patient made aware he is diabetic - glucose well controlled in hospital with minimal insulin on carb consistent diet, patient may greatly improve glycemic control and diet change - DM educator consult placed: 1.) Insulin adjustments, as needed, to help maintain BG values in a safe range. 2.) Recommend discharge on Metformin ER 500mg BID with Jardiance or Farxiga give recent stroke PRESCRIPTIONS NEEDED: 1.) OneTouch Verio Test Strips to check 1x/day. 2.) OneTouch Delica Lancets 33 gauge to check 1x/day. -Patient discharged on Metformin 500 BID, requires follow up with PCP to recheck sugars and determine if second medication is needed (3) Hypertension: - Home BP 180-190 range. In the ER, BP consistently >200/110 - Start losartan 100 mg HS, Metoprolol Tartrate 25mg BID PO, Amlodipine 5mg daily - renal artery duplex negative for stenosis - Requires follow up with PCP to monitor BP, if patient maintains good BP can consider down titrating medication (4) Atherosclerosis with HLD -Total cholesterol 220 -started rosuvastatin 40mg daily -started on ASA 81mg Plavix 75mg daily, will transition to plavix alone in 3 weeks ()Difficulty Ambulating -patient to go to inpatient PT/OT rehab -requires condom catheter for urinary due to ambulation difficulty ()Dysphagia -evaluated by speech therapy, video swallow study showed trace aspiration with thin liquids, not enough cough to clear it. -recommended puree diet with thickened liquids ()Abnormal UPEP - lab order at the time of admission as work up for weakness - SPEP wnl, UPEP = Urine protein electophoresis reveals a slight restriction in the gamma region that may indicate the presence of a monoclonal immunoglobulin - should have outpatient follow up. ()Muscle Spasm -located on right thigh -Patient understands to continue working with PT -ordered voltaren gel QID ()Blurry Vision -likely 2/2 to stroke -TOMASZ ELDRIDGEDE -outpatient ophtho referral. FENa: card consistent, pureed, thickened liquids (nectar) Code Status: Full (2) Hyperglycemia due to type 2 diabetes mellitus: (3) Diabetes: (4) Weakness: (5) Ischemic stroke: (6) Hypertension: (7) Atherosclerosis of vertebral artery: (8) Vertebral artery stenosis: Total Time Total Time Spent Total Time Spent (In Minutes): see attending attestation Discharge Plan Discharge Items Patient Disposition: Transfer Inpatient Rehab Fac Reason For Visit: GENERAL WEAKNESS, HYPERTENSION Discharge Diagnosis: Ischemic Stroke with Hypertension and Diabetes Activity: Per Instructions section Non-emergency contact: Primary Care Provider Call non-emergency contact if: you have any medication questions, your symptoms worsen, your pain is concerning for you and you have a fever Follow-up/Referrals: Nas Alicea MD [Physician] - (high grade b/l vertebral artery stenosis) Romina Ellis DO [Resident] - PCP,NO [Primary Care Provider] - Diet: Carb Consistent or DM2 Diet Texture: Pureed (blended smooth) Liquid Consistency: [place] thick Addtl Attending Provider Instructions: 71yo Male PMH Lasix surgery no PCP 20 years presents with 1 week of weakness in lower extremities. (1) Acute ischemic stroke: - Neck CTA 11/27= multiple high grade stenosis noted on b/l vertebral artery - Head CTA 11/27= no intracranial pathology, mild atherosclerotic disease - Brain MRI w/o contrast 11/29 = 1. 2.5 cm linear focus of restricted diffusion involving the left de [place] santos radiata/external capsule distribution is compatible with an acute infarct. 2. Subcentimeter focus of restricted diffusion involving the left cerebellar hemisphere is suggestive of an acute versus subacute infarct. 3. Chronic lacunar infarcts of the cerebellum, brainstem and basal ganglia. Involutional changes with chronic microvascular ischemic disease. - echo unremarkable - CT head 11/30 no contrast given worsening symptoms 3 x 1.1 cm acute infarct within the left de [place] santos radiata and external capsule. Minimal mass effect. No hemorrhagic conversion. Possible slight increase in extent since MRI of November 29, 2021. - TSH normal. Folate B12 wnl. No smoking alcohol - mildly elevated ESR 40 - neurology consult placed, recommend starting plavix 75mg daily with ASA 81mg for 3 weeks (11/22), after which plavix alone. started aspirin 81mg plavix 75mg daily, rosuvastatin 40mg daily - RUE and RLE weakness have progressed to immobile against gravity since admission - PT/OT ordered, recommend inpatient rehab - speech therapy ordered, noted aphasia dysarthria and dysphagia, recommend speech therapy follow in rehab diet changed to puree with nectar thick liquids -continue oral care, aspiration precautions (2) Diabetes: - A1c 9.9, newly diagnosed diabetic, patient made aware he is diabetic - glucose well controlled in hospital with minimal insulin on carb consistent diet, patient may greatly improve glycemic control and diet change - DM educator consult placed: 1.) Insulin adjustments, as needed, to help maintain BG values in a safe range. 2.) Recommend discharge on Metformin ER 500mg BID with Jardiance or Farxiga give recent stroke PRESCRIPTIONS NEEDED: 1.) OneTouch Verio Test Strips to check 1x/day. 2.) OneTouch Delica Lancets 33 gauge to check 1x/day. -Patient to be discharged on Metformin 500 BID, requires follow up with PCP to recheck sugars and determine if second medication is needed (3) Hypertension: - Home BP 180-190 range. In the ER, BP consistently >200/110 - Start losartan 100 mg HS, Metoprolol Tartrate 25mg BID PO, Amlodipine 5mg daily - renal artery duplex negative for stenosis - Requires follow up with PCP to monitor BP, if patient maintains good BP can consider downtitrating medication (4) Atherosclerosis with HLD -Total cholesterol 220 -started rosuvastatin 40mg daily -started on ASA 81mg Plavix 75mg daily, will transition to plavix alone in 3 weeks ()Difficulty Ambulating -patient to go to inpatient PT/OT rehab -requires condom catheter for urinary due to ambulation difficulty ()Dysphagia -evaluated by speech therapy, video swallow study showed trace aspiration with thin liquids, not enough cough to clear it. -recommended puree diet with thickened liquids ()Abnormal UPEP - lab order at the time of admission as work up for weakness - SPEP wnl, UPEP = Urine protein electophoresis reveals a slight restriction in the gamma region that may indicate the presence of a monoclonal immunoglobulin - should have outpatient follow up. ()Muscle Spasm -located on right thigh -Patient understands to continue working with PT -ordered voltaren gel QID ()Blurry Vision -likely 2/2 to stroke -PERRLA EOMI -continue to monitor FENa: card consistent, pureed, thickened liquids (nectar) Code Status: Full Pending Studies at Discharge: No Stand-Alone Forms: My [facility] Skilled Items Patient informed of condition?: Yes DNR: No Discharge Level of Care: Acute rehab Communicable Disease: No Discharge Prognosis: Stable Lines: None Urinary Catheter: No Medications and DC Order Prescriptions: New clopidogrel 75 mg Tablet 75 mg PO QAM 30 Days Qty: 30 RF: 2 amlodipine [Norvasc] 5 mg Tablet 5 mg PO QAM 30 Days Qty: 30 RF: 2 losartan 50 mg Tablet 100 mg PO HS 30 Days Qty: 60 RF: 2 metoprolol tartrate 25 mg Tablet 25 mg PO BID 30 Days Qty: 60 RF: 2 rosuvastatin [Crestor] 20 mg Tablet 40 mg PO QAM 30 Days Qty: 60 RF: 2 aspirin 81 mg Tablet,Delayed Release (Dr/Ec) 81 mg PO QAM 17 Days Qty: 17 RF: 0 diclofenac sodium [Voltaren Arthritis Pain] 1 % Gel 2 g EXT QID 30 Days Qty: 100 RF: 1 meclizine 12.5 mg Tablet 12.5 mg PO Q12 PRN (Reason: dizziness or vertigo) 7 Days Qty: 7 RF: 0 polyethylene glycol 3350 [Miralax] 17 gram Powder In Packet 34 g PO DAILY 30 Days Qty: 100 RF: 0 melatonin 3 mg Tablet 3 mg PO HS 30 Days Qty: 30 RF: 0 (DME) OneTouch Verio test strips Strip See Rx Instructions .Route Qty: 50 RF: 2 (DME) lancets [OneTouch Delica Lancets] 33 gauge misc See Rx Instructions .Route Qty: 100 RF: 2 metformin 500 mg tablet 500 mg PO BID 30 Days Qty: 60 RF: 2 Continued acetaminophen-caffeine 500-65 mg Tablet 1 tab PO Q12H PRN (Reason: Pain) RF: 0 Discharge Orders: Discharge Order (Routine); Ordered 12/05/21 Ordered By: Romina Hewitt/Other Patient Handouts: Diabetes Food Shop Meals Prep, Stroke: Resources and Support, Stroke: Tips for Swallowing, Hypertension Stroke Link, Stroke Regaining Movement, Stroke Self Care After, Diabetes Carbs Fats Protein, Arm Care After a Stroke, Blood Sugar Check Steps, ED Hypertension New Begin Treatment Admission Data Admit Date/Time: 11/29/21 18:11 Attending Provider: Mariama Desai Admit Provider: Evens Mitchell Primary Care Provider: PCP,NO Other Providers: Evens Mitchell ; [facility] ; Antelmo Rees ; Altaf Jovel Supervising Physician Co-Signing Physician Notes Resident Physician Supervision Note: I independently interviewed and examined the patient and verified the rosenthal history and physical, reviewed labs and image studies and agree with resident Dr. Ellis findings and care plan. Resident Activity Tracking Resident Involvement: Resident Care Provided Care Provided: Adult Hospital Medicine
[2021-12-05] MEDS: CLOPIDOGREL BISULFATE 75 MG TAB PO SCH (08:21)
[2021-12-05] MEDS: ASPIRIN 81 MG ECTAB PO SCH (08:21)
[2021-12-05] MEDS: ENOXAPARIN INJ 40 MG/0.4 ML SYR SQ SCH (08:21)
[2021-12-05] MEDS: METOPROLOL TARTRATE 25 MG TAB PO SCH (08:21)
[2021-12-05] MEDS: DICLOFENAC SOD 1% GEL 100 GM TUBE EXT SCH ×2 (08:21→12:28)
[2021-12-05] MEDS: ROSUVASTATIN CALCIUM 20 MG TAB PO SCH (08:21)
[2021-12-05] MEDS: amLODIPine BESYLATE 5 MG TAB PO SCH (08:21)
[2021-12-05] MEDS: POLYETHYLENE (MIRALAX) 17 GM PACK PO SCH (08:22)
[2021-12-05] MEDS: INSULIN ASPART PER UNIT SC SCH ×2 (08:22→12:29)
[2021-12-05] MEDS ORDERED: POLYETHYLENE (MIRALAX) 17 GM PACK PO SCH (09:00)
--- NOTE | 2021-12-05 14:19 | Fluoroscopy Report ---
FL video swallow CLINICAL HISTORY: r/o aspiration TECHNIQUE: Video fluoroscopy of the pharyngeal region was performed as barium mixtures of varying con sistencies were administered to the patient by the speech pathologist. A formal esophagram was not pe rformed. COMPARISON: None. FINDINGS: Total fluoroscopy time: 3.3 minutes. Left-sided oral motor weakness is seen. Silent aspiration was noted with thin liquids with poor cough reflex which did not clear the throat. Pooling of barium was noted in the bilateral piriform sinuses and valleculae. IMPRESSION: Silent aspiration without clearance was noted upon administration of thin liquids. Please see the speech pathology report for further details. ACT 112: Negative or not required by law. Electronically signed by: Tutu Cartwright M.D. 12/05/2021 2:17 PM
== END 2021-12-05 16:20 | DRG 65 ==
LOC: 2N 13:04 → ED 13:04 → SUATTDRO 17:58 → 2N 11-28 01:30 → SUATTDRO 11-29 18:11